=== PATIENT | female | born 1930 | race Caucasian/White ===

== ENCOUNTER 2017-11-03 17:17 | Inpatient (IN) ==
[2017-11-03] MEDS ORDERED: 0.9 % Sodium Chloride 1,000 ML IVC ONE (17:34)
[2017-11-03] MEDS ORDERED: *HR* HYDROcodone/Acet 5/325 mg TABLET PO ONE (17:34)
--- NOTE | 2017-11-03 17:41 | Emergency Department Note ---
Disposition Clinical Impression: ADDIS (acute kidney injury), Elevated CK Fall Qualifiers: Encounter type: initial encounter Qualified Code(s): W19.XXXA - Unspecified fall, initial encounter Disposition: Admitted As Inpatient Condition: Good Referrals: Swati Rios DO [Primary Care Provider] - Forms: ED Satisfaction Letter Time of Disposition: 19:06 General Adult HPI - General Chief complaint: ED Fall Stated complaint: Fall/Weak Time Seen by Provider: 11/03/17 17:21 Source: patient Limitations: no limitations Nursing Notes Reviewed: Yes Vital Signs Reviewed: Yes - History of Present Illness HPI Narrative: Patient is an 87-year-old female presents to emergency department after a fall approximately 3 days ago. She states that she fell on Friday evening and late until Friday afternoon when her daughter came to her house to find her. She states that she did not come to the emergency department right away because initially they could not manage this at home. Patient states that she did hit her head when she fell but denies any loss of consciousness or being on any blood thinners. She states that she was reaching for her walker and fell. Patient states that she is having pain in her right hip. 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 Pain Scale: 5 - Related Data Home Medications Medication Instructions Recorded Confirmed Calcium Carbonate/Vitamin D3 1 each PO BID 05/22/15 10/07/17 [Calcium 600 + D Tablet] Glimepiride [Amaryl] 2 mg PO DAILY 05/22/15 10/07/17 Gluc HCl/Csa/Collagen/Hyalur A 1 each PO DAILY 05/22/15 10/07/17 [Glucosamine Chondroitin Cap] Lisinopril/Hydrochlorothiazide 1 each PO BID 05/22/15 10/07/17 [Lisinopril-Hctz 20-12.5 mg Tab] Metoprolol Tartrate 50 mg PO BID 05/22/15 10/07/17 Multivitamin/Iron/Folic Acid 1 each PO DAILY 05/22/15 10/07/17 [Centrum Complete Multivit Tab] Simvastatin [Zocor] 20 mg PO DAILY 05/22/15 10/07/17 Polyethylene Glycol 3350 [MiraLAX] 17 gm PO DAILY PRN 12/10/16 10/07/17 Cholecalciferol (D-3) [Vitamin D] 1,000 unit PO BID 02/07/17 10/07/17 Ascorbic Acid [Vitamin C] 1,000 mg PO DAILY 08/21/17 10/07/17 Aspirin Enteric Coated [Aspirin EC] 81 mg PO DAILY 11/03/17 11/03/17 Dexamethasone [Decadron] 4 mg PO DAILY 11/03/17 11/03/17 Loperamide [Imodium] 2 mg PO PER PKG DI PRN 11/03/17 11/03/17 Omeprazole [PriLOSEC] 20 mg PO DAILY 11/03/17 11/03/17 Previous Rx's Medication Instructions Recorded LORazepam [Ativan] 0.5 mg PO Q8H PRN #24 tablet 12/10/16 Sertraline [Zoloft] 25 mg PO DAILY #30 tablet 12/10/16 Morphine Immed Rel [Morphine 15 mg PO Q2H PRN #30 tab 03/21/17 Sulfate] HYDROcodone/Acet 5/325 mg [[place] 1 tab PO Q6H PRN #60 tab 09/03/17 5-325 mg] Docusate [Colace] 200 mg PO BID #120 capsule 10/07/17 Lactulose 20 gm PO QID PRN #240 ml 10/07/17 Crizotinib [Xalkori] 250 mg PO BID #60 capsule 10/30/17 Allergies Allergy/AdvReac Type Severity Reaction Status Date / Time Sulfa (Sulfonamide Allergy Unknown Fainting Verified 10/07/17 11:18 Antibiotics) All systems ED: reviewed and negative except as stated. 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 Absent: respiratory distress, wheezes - Cardiovascular Cardiovascular exam: Present: regular rate, normal rhythm, normal heart sounds, +S1, +S2 - Abdominal Exam Abdominal exam: Present: soft, Non-Tender, normal bowel sounds - Neurological Exam Neurological exam: Present: alert, oriented X3, CN II-XII intact - Expanded Neurological Exam Speech: Present: fluid speech Cranial nerves: EOM function (II, III, IV, ): Normal, facial sensation (V): Normal, facial palsy (VII): Normal, gag reflex (IX): Normal, spinal accessory function (XI): Normal, tongue deviation (XII): Normal Cerebellar function: finger to nose: Normal, heel to stephens: Abnormal Right Motor strength - LUE: 5/5 Motor strength - RUE: 5/5 Motor strength - LLE: 5/5 Motor strength - RLE: 3/5 (Patient states that she has issues with her right leg chronically but this is worse than normal. She states that she is unable to lift her leg due to the pain.) Upper motor neuron exam: pronator drift: Absent bilaterally Sensory exam upper extremity: light touch: Normal Sensory exam lower extremity: light touch: Normal Coma Scale Eye Opening: Spontaneous Coma Scale Motor Response: Obeys Commands Coma Scale Verbal Response: Oriented Coma Scale Total: 15 - Psychiatric Psychiatric exam: Present: normal affect, normal mood - Skin Skin exam: Present: warm, dry, intact Course Vital Signs Temperature 98.8 F 11/03/17 17:23 Pulse Rate 92 11/03/17 17:23 Respiratory Rate 16 11/03/17 17:23 Blood Pressure 117/54 11/03/17 17:23 O2 Sat by Pulse Oximetry 96 11/03/17 17:23 Temperature 98.2 F 11/03/17 19:23 Pulse Rate 75 11/03/17 19:23 Respiratory Rate 18 11/03/17 19:23 Blood Pressure 135/63 11/03/17 19:23 O2 Sat by Pulse Oximetry 94 11/03/17 19:23 Oxygen Delivery Oxygen Delivery Room Air Medical Decision Making - MDM Narrative Medical decision making narrative: Due to the patient having a recent fall and hitting her head we will do a CT of the head and neck. We will also x-ray of the pelvis, right hip and right femur. We will also obtain a CBC, BMP and urinalysis on this patient. There are no acute findings on imaging per radiology read. The patient does have an elevated white count which could be due to the patient having laid on the ground for 48 hours. Patient also has an elevated CK level. Patient has what appears to be acute kidney injury which is likely related to rhabdomyolysis versus dehydration. Patient was on the ground for 48 hours with minimal oral intake. Patient was given fluids and analgesics here in the emergency department. Urinalysis was negative for infection. The patient will need to be admitted to the hospital for further evaluation and management and possible OT, PT and possible placement due to the patient being weak and having difficulty getting around. I called and spoke with the hospitalist and they have accepted the patient to their service. The patient will be admitted to the hospital for further evaluation and management. A chest x-ray has been added as the hospitalist request. Chest x-ray showed no acute process. - Lab Data Lab results reviewed: Yes I reviewed the patient's lab results. Result diagrams: 11/03/17 18:21 11/03/17 18:21 Lab Results 11/03/17 11/03/17 11/03/17 Range/Units 18:21 18:21 19:55 WBC 18.8 H (4.3-11.1) K/mcL RBC 3.59 L (3.82-4.97) M/mcL Hgb 9.5 L (11.5-15.4) g/dL Hct 30.7 L (35.3-44.9) % MCV 85.5 (83.0-100.0) fL MCH 26.5 L (28.0-33.3) pg MCHC 30.9 L (31.6-35.5) g/dL RDW 15.5 H (11.5-14.5) % Plt Count 563 H (140-400) K/mcL MPV 9.6 (9.4-12.4) fL Immature Gran % 1.1 (0-4) % Seg Neutrophils % 86.4 % Lymphocytes % 6.9 % Monocytes % 4.7 % Eosinophils % 0.7 % Basophils % 0.2 % Neutrophils # 16.3 H (1.6-8.9) K/mcL Lymphocytes # 1.3 (0.6-4.6) K/mcL Monocytes # 0.9 (0.0-1.3) K/mcL Eosinophils # 0.1 (0.0-0.6) K/mcL Basophils # 0.0 (0.0-0.2) K/mcL Sodium 134 L (136-145) mEq/L Potassium 3.4 L (3.5-5.1) mEq/L Chloride 94 L (98-107) mEq/L Carbon Dioxide 31 H (23-29) mEq/L BUN 52 H (8-23) mg/dL Creatinine 1.26 H (0.60-1.20) mg/dL Est GFR ( Amer) 49 L (> 60) Est GFR (Non-Af Amer) 40 L (> 60) BUN/Creatinine Ratio 41 H (6-26) Glucose 129 H (70-105) mg/dL Calculated Osmolality 294 (280-300) Calcium 8.1 L (8.6-10.3) mg/dL Creatine Kinase 352 H (30-223) Units/L Urine Color Dark Yellow (Yellow) Urine Clarity Cloudy A (Clear) Urine pH 5.5 (5.0-8.0) pH Units Ur Specific [place] 1.021 (1.010-1.025) Urine Protein Negative (Neg-Trace) mg/dL Urine Glucose (UA) Normal (Normal) mg/dL Urine Ketones Negative (Negative) mg/dL Urine Blood Negative (Negative) Urine Nitrite Negative (Negative) Urine Bilirubin Small H (Negative) Urine Urobilinogen Normal (Normal) mg/dL Ur Leukocyte Esterase Negative (Negative) - Radiology Data Radiology results reviewed: Yes I reviewed the patient's radiology results. Cervical Spine CT 11/03/17 17:34 IMPRESSION: No acute abnormality of the cervical spine. D/ / 11/03/2017 18:15:14 Robert Souza MD / [facility] Interpreting Provider: Robert Souza MD Femur X-Ray 11/03/17 17:34 IMPRESSION: No acute osseous abnormality of the right femur. D/ / Edilson Steven MD / Edilson Steven MD Interpreting Provider: Edilson Steven MD Head CT 11/03/17 17:34 IMPRESSION: No acute intracranial abnormality. D/ / Geo Lewis MD / Geo Lewis MD Interpreting Provider: Geo Lewis MD Pelvis X-Ray 11/03/17 17:34 IMPRESSION: 1. No acute abnormality. D/ / Brandyn Quijano MD / Brandyn Quijano MD Interpreting Provider: Brandyn Quijano MD - EKG Data EKG #1 EKG attestation: Yes I reviewed and interpreted this EKG. EKG results narrative: EKG shows atrial fibrillation at a rate of 96 bpm, QRS duration of 86, QTC of 437 no stemi noted on this ekg. this is compared to previous EKG on 03/12/15 which showed a sinus rhythm with a rate of 79 bpm.
[2017-11-03 18:26] LABS: Basophils % 0.2 %; Eosinophils # 0.1 K/mcL (0.0-0.6); Eosinophils % 0.7 %; Hematocrit 30.7 % (35.3-44.9); Hemoglobin 9.5 g/dL (11.5-15.4); Immature Granulocytes % 1.1 % (0-4); Lymphocytes # 1.3 K/mcL (0.6-4.6); Lymphocytes % 6.9 %; Mean Corpuscular HGB Conc 30.9 g/dL (31.6-35.5); Mean Corpuscular Hemoglobin 26.5 pg (28.0-33.3); Mean Corpuscular Volume 85.5 fL (83.0-100.0); Mean Platelet Volume 9.6 fL (9.4-12.4); Monocytes # 0.9 K/mcL (0.0-1.3); Monocytes % 4.7 %; Neutrophils # 16.3 K/mcL (1.6-8.9); Platelet Count 563 K/mcL (140-400); Red Blood Count 3.59 M/mcL (3.82-4.97); Red Cell Distribution Width 15.5 % (11.5-14.5); Segmented Neutrophils % 86.4 %
--- NOTE | 2017-11-03 18:38 | Emergency Department Note ---
START Narrative - START START: I examined this patient and my medical decision-making was reviewed with the Resident Physician. I agree with the documented findings, disposition and treatment plan as described except to the extent set forth below. 87-year-old female presents to the emergency room for weakness. Patient fell on Friday while reaching for her walker landing in the kitchen on the floor. She laid there for 3 days. Her daughter finally came to check on her today. Patient was able to drink water from a water bottle and ate some crackers off the table. She was complaining of right hip pain. 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 She gets treatment here for her cancer by oncology. We did a CT of her head and neck that were nonacute. Although plain films of the pelvis and right hip were negative. Patient will need to be admitted for further workup of her weakness as well as PT OT evaluation. Patient was given IV fluids in the ER. Patient is too weak and unsteady to go home as she lives by herself. Patient most likely may need placement. Concerns for rhabdo or dehydration. Awaiting her lab work results.
[2017-11-03 18:39] LABS: Calcium 8.1 mg/dL (8.6-10.3); Potassium 3.4 mEq/L (3.5-5.1)
[2017-11-03 20:24] LABS: Bilirubin,Urine Small (Negative); Blood,Urine Negative (Negative); Clarity,Urine Cloudy (Clear); Color,Urine Dark Yellow (Yellow); Glucose,Urine (UA) Normal (Normal); Ketones,Urine Negative (Negative); Leukocyte Esterase,Urine Negative (Negative); Nitrite,Urine Negative (Negative); PH,Urine 5.5 pH Units (5.0-8.0); Protein,Urine Negative (Neg-Trace); Specific Gravity,Urine 1.021 (1.010-1.025); Urobilinogen,Urine Normal (Normal)
[2017-11-03 20:27] LABS: Bacteria,Urine None Seen per hpf (None-Few); Squamous Epithelial Cell,Urine Many per lpf (None-Few)
[2017-11-03 20:42] LABS: Hyaline Casts,Urine Moderate per lpf (None-Few)
[2017-11-03] MEDS ORDERED: Naloxone 0.4 MG/ML INJ IVP PRN (20:48)
[2017-11-03] MEDS ORDERED: Acetaminophen 325 MG TABLET PO PRN (20:48)
[2017-11-03] MEDS ORDERED: Ondansetron 4 MG/2 ML VIAL IVP PRN (20:48)
[2017-11-03] MEDS ORDERED: Lactulose Oral Soln 20 GM/30 ML UDC PO PRN (20:56)
[2017-11-03] MEDS ORDERED: *HR* Morphine Immed Rel 15 MG TABLET PO PRN (20:56)
[2017-11-03] MEDS ORDERED: 0.9 % Sodium Chloride w KCl 20 MEQ/1,000 ML MLS IVC SCH (21:00)
--- NOTE | 2017-11-03 21:14 | Internal Med History&Physical ---
<Tesha Damon S - Last Filed: 11/03/17 21:04> Date of Encounter: 11/03/17 Time of Encounter: 21:04 Assessment and Plan (1) ADDIS (acute kidney injury) Current visit: Yes Status: Acute secondary to poor oral intake urinary hesitation tobar catheter inserted in ED avoid nephrotoxins monitor labs (2) Dehydration Current visit: Yes Status: Acute poor oral intake from fall and unable to get up iv fluids (3) Fall Current visit: Yes Status: Acute PT/OT/Social service consults generalized weakness with increasing numbness of legs Qualifiers: Encounter type: initial encounter Qualified Code(s): W19.XXXA - Unspecified fall, initial encounter (4) Leukocytosis Current visit: Yes Status: Acute cxr clear, urine clean likely stress related recheck in am monitor fever curve Qualifiers: Qualified Code(s): D72.829 - Elevated white blood cell count, unspecified (5) Elevated CK Current visit: Yes Status: Acute secondary to fall recheck in am (6) Bone metastasis Current visit: No Status: Chronic s/p radiation oncologist recommends holding her oral agent while hospitialized (7) Depression Current visit: Yes Status: Chronic continue home medication Qualifiers: Depression Type: unspecified Qualified Code(s): F32.9 - Major depressive disorder, single episode, unspecified (8) Ambulatory dysfunction Current visit: Yes Status: Acute pt/ot/social service (9) Diabetes mellitus Current visit: Yes Status: Chronic accu checks ac/hs low dose sliding scale coverage hold oral agent Qualifiers: Diabetes mellitus type: type 2 Diabetes mellitus complication status: with unspecified complications Diabetes mellitus penitentiary insulin use: without penitentiary use Qualified Code(s): E11.8 - Type 2 diabetes mellitus with unspecified complications (10) Hypokalemia Current visit: Yes Status: Acute replace and recheck Internal Medicine - H&P: HPI Chief complaint: mechanical fall with hip pain Admitted From: Emergency Dept Plans for Post Hospital Care: Transfer Halfway Facility History of present illness: Ms. Wasserman is a 87 year old female who presented to the emergency room accompanied by her daughter for bilateral lower extremity weakness and numbness. The patient fell on Friday evening about 5 PM while reaching for her walker coming out of the kitchen. She was unable to get up and laid on the floor until Friday afternoon when her daughter came over and found her on the floor. She had been drinking water out of a bottle and eating some crackers that she could reach. She has right hip pain. She has a history of lung cancer with bony metastasis to the right hip status post radiation and chronic pain medication. She follows at this facility for her cancer care. She felt she did hit her head and neck. She was found to have a white count of 18.8, creatinine kinase of 352, and some renal dysfunction, BUN 52 creatinine 1.26. She states that she utilizes a walker at home that her legs are weak and numb and she cannot use her walker at this point. Chest x-ray showed nothing acute, CT of the spine with no acute changes, right femur was negative for acute fracture and pelvic x-ray showed nothing acute with no changes in the right iliac bone related to metastasis. Head CT with no acute findings. The patient was having difficulty voiding and a Tobar catheter was placed in the ED for some concentrated bradley urine. Urinalysis was sent which is clean. She feels that she is dehydrated. She states she has chronic numbness from the pelvis down secondary to the radiation therapy in the past and cannot tell when she is urinating well when her bowels are moving. She does have difficulty with constipation secondary to her pain medication but then every once in a while will have a bout of diarrhea secondary to her anticonstipation medications. Past Med Surg Social Fam HX - Past Medical History Medical history: cancer, diabetes, hyperlipidemia, hypertension, other ( difficult ambulation, numbness lower extremeties) Psychiatric history: no psych history - Past Surgical History Surgical History: cancer surgery, knee replacement - Social History Smoking Status: Never smoker Smokeless Tobacco Status: No Alcohol use: none Drug use: none Internal Medicine - H&P: Meds Calcium Carbonate/Vitamin D3 [Calcium 600 + D Tablet] 1 each PO DAILY 05/22/15 [ History] Glimepiride [Amaryl] 2 mg PO DAILY 05/22/15 [History] Gluc HCl/Csa/Collagen/Hyalur A [Glucosamine Chondroitin Cap] 1 each PO DAILY 01/01 [History] Lisinopril/Hydrochlorothiazide [Lisinopril-Hctz 20-12.5 mg Tab] 1 each PO BID [History] Metoprolol Tartrate 50 mg PO BID 05/22/15 [History] Multivitamin/Iron/Folic Acid [Centrum Complete Multivit Tab] 1 each PO DAILY 01/01 [History] Simvastatin [Zocor] 20 mg PO HS 05/22/15 [History] LORazepam [Ativan] 0.5 mg PO Q8H PRN #24 tablet 12/10/16 [Rx] Polyethylene Glycol 3350 [MiraLAX] 17 gm PO DAILY PRN 12/10/16 [History] Sertraline [Zoloft] 25 mg PO DAILY #30 tablet 12/10/16 [Rx] Cholecalciferol (D-3) [Vitamin D] 1,000 unit PO BID 02/07/17 [History] Morphine Immed Rel [Morphine Sulfate] 15 mg PO Q2H PRN #30 tab 03/21/17 [Rx] Ascorbic Acid [Vitamin C] 1,000 mg PO DAILY 08/21/17 [History] HYDROcodone/Acet 5/325 mg [[place] 5-325 mg] 1 tab PO Q6H PRN #60 tab 09/03/17 [Rx ] Docusate [Colace] 200 mg PO BID #120 capsule 10/07/17 [Rx] Lactulose 20 gm PO QID PRN #240 ml 10/07/17 [Rx] Crizotinib [Xalkori] 250 mg PO BID #60 capsule 10/30/17 [Rx] Aspirin Enteric Coated [Aspirin EC] 81 mg PO DAILY 11/03/17 [History] Dexamethasone [Decadron] 4 mg PO DAILY 11/03/17 [History] Loperamide [Imodium] 2 mg PO PER PKG DI PRN 11/03/17 [History] Omeprazole [PriLOSEC] 20 mg PO DAILY 11/03/17 [History] 3 Allergy/AdvReac Type Severity Reaction Status Date / Time Sulfa (Sulfonamide Allergy Unknown Fainting Verified 10/07/17 11:18 Antibiotics) All Systems PM: A 10-system review of systems was performed and is negative for pertinent findings except as documented above in the HPI. - Constitutional Constitutional: falls, weakness, no chills, no fever(s), no night sweats - EENT Eyes: no change in vision, no discharge, no pain, no photophobia Ears: no ear discharge, no ear pain, no tinnitus Nose, mouth and throat: dry mouth, no dysphagia, no nasal discharge, no neck pain, no sore throat - Cardiovascular Cardiovascular ROS IM: no chest pain, no diaphoresis, no dyspnea, no lightheadedness, no palpitations, no syncope - Respiratory Respiratory: no cough, no dyspnea, no wheezing, no excessive phlegm production - Gastrointestinal Gastrointestinal: no abdominal pain, no diarrhea, no hematemesis, no hematochezia, no melena, no nausea, no vomiting - Genitourinary Genitourinary: change in urinary stream, urinary hesitancy, no dysuria, no flank pain, no hematuria - Musculoskeletal Musculoskeletal ROS IM: muscle weakness, numbness, no tingling - Integumentary Integumentary IM: no rash, no unusual bruising - Neurological Neurological ROS: numbness, no confusion, no convulsions, no focal weakness, no tingling, no tremor(s) - Psychiatric Psychiatric: depression - Hematologic/Lymphatic Hematologic/Lymphatic: no easy bruising - Constitutional Vitals: Temp Pulse Resp BP Pulse Ox 98.2 F 75 18 135/63 94 11/03/17 19:23 11/03/17 19:23 11/03/17 19:23 11/03/17 19:23 11/03/17 19:23 General appearance: Present: A&O X 3, pleasant, no acute distress, obese, answers questions appropriately - Head Head exam: Present: atraumatic, normocephalic - Eye Eye exam: Present: conjuntiva pink, sclera anicteric Pupils: Present: PERRL - Neck Neck exam general surgery: Present: supple, trachea midline. Absent: lymphadenopathy - Respiratory Respiratory exam: Present: CTAB. Absent: accessory muscle use, rales, rhonchi, wheezes - Cardiovascular Cardiovascular exam: Present: RRR, +S1, +S2. Absent: diastolic murmur, gallop, rubs, systolic murmur - GI/Abdominal GI/Abdominal exam: Present: normal bowel sounds, soft, no peritoneal signs. Absent: distended, tenderness - Extremities Exam Extremities exam: Present: tenderness, warm, radial pulses palpable and symmetrical. Absent: calf tenderness, cyanotic, pedal edema Additional comments: right lower extremity trace edema - Neurological Exam Neurological exam: Present: abnormal gait, oriented X3, no focal deficits. Absent: strengths equal and symetr throughout, pronater drift, facial droop, speech deficit - Skin Skin exam: Present: dry, intact, warm (lips and mm slight dry) Internal Med - H&P Results - Labs CBC & Chem 7: 11/03/17 18:21 11/03/17 18:21 Labs: Short CBC 11/03/17 Range/Units 18:21 WBC 18.8 H (4.3-11.1) K/mcL Hgb 9.5 L (11.5-15.4) g/dL Hct 30.7 L (35.3-44.9) % Plt Count 563 H (140-400) K/mcL Neutrophils # 16.3 H (1.6-8.9) K/mcL BMP 11/03/17 18:21 Sodium 134 L Potassium 3.4 L Chloride 94 L Carbon Dioxide 31 H BUN 52 H Creatinine 1.26 H Glucose 129 H Calcium 8.1 L Urine 11/03/17 Range/Units 19:55 Urine Color Dark Yellow (Yellow) Urine Clarity Cloudy A (Clear) Urine pH 5.5 (5.0-8.0) pH Units Ur Specific [place] 1.021 (1.010-1.025) Urine Protein Negative (Neg-Trace) mg/dL Urine Glucose (UA) Normal (Normal) mg/dL - Impressions ITS Impressions Cervical Spine CT 11/03/17 17:34 IMPRESSION: No acute abnormality of the cervical spine. D/ / 11/03/2017 18:15:14 Robert Souza MD / [facility] Interpreting Provider: Robert Souza MD Femur X-Ray 11/03/17 17:34 IMPRESSION: No acute osseous abnormality of the right femur. D/ / Edilson Steven MD / Edilson Steven MD Interpreting Provider: Edilson Steven MD Head CT 11/03/17 17:34 IMPRESSION: No acute intracranial abnormality. D/ / Geo Lewis MD / Geo Lewis MD Interpreting Provider: Geo Lewis MD Pelvis X-Ray 11/03/17 17:34 IMPRESSION: 1. No acute abnormality. D/ / Brandyn Quijano MD / Brandyn Quijano MD Interpreting Provider: Brandyn Quijano MD Chest X-Ray 11/03/17 19:38 IMPRESSION: 1. No acute abnormality. D/ / Brandyn Quijano MD / Brandyn Quijano MD Interpreting Provider: Brandyn Quijano MD <Uyen San - Last Filed: 11/04/17 04:25> Date of Encounter: 11/04/17 Internal Medicine - H&P: HPI History of present illness: Ms. Wasserman is a 87 year old female All Systems PM: A 10-system review of systems was performed and is negative for pertinent findings except as documented above in the HPI. - Constitutional Vitals: Temp Pulse Resp BP Pulse Ox 98.5 F 66 15 111/57 95 11/04/17 03:58 11/04/17 03:58 11/04/17 03:58 11/04/17 03:58 11/04/17 03:58 Internal Med - H&P Results - Labs CBC & Chem 7: 11/03/17 18:21 11/03/17 18:21 - Attending Attestation I have seen and examined pt independently. I have discussed with RN BURN Ms Damon regarding the management plan, agree with the documentation.
[2017-11-03] MEDS ORDERED: *HR* Dextrose 50 % in Water (Syg) 50 ML SYRINGE IVP PRN (21:39)
[2017-11-03] MEDS ORDERED: D5% in Water 1,000 ML IVC PRN (21:39)
[2017-11-03] MEDS ORDERED: Dextrose Gel 15 GM/37.5 ML TUBE PO PRN ×2 (21:39)
[2017-11-04] MEDS: 0.9 % Sodium Chloride 1,000 ML IVC SCH ×2 (00:25→16:30)
[2017-11-04 05:47] LABS: Basophils % 0.2 %; Eosinophils # 0.2 K/mcL (0.0-0.6); Eosinophils % 1.4 %; Hemoglobin 8.2 g/dL (11.5-15.4); Immature Granulocytes % 1.1 % (0-4); Lymphocytes # 1.6 K/mcL (0.6-4.6); Lymphocytes % 10.5 %; Mean Corpuscular HGB Conc 30.4 g/dL (31.6-35.5); Mean Corpuscular Hemoglobin 26.4 pg (28.0-33.3); Mean Corpuscular Volume 86.8 fL (83.0-100.0); Monocytes # 0.9 K/mcL (0.0-1.3); Monocytes % 5.9 %; Platelet Count 471 K/mcL (140-400); Red Blood Count 3.11 M/mcL (3.82-4.97); Red Cell Distribution Width 15.8 % (11.5-14.5); Segmented Neutrophils % 80.9 %
[2017-11-04 05:53] LABS: INR 1.3; Prothrombin Time 13.7 Seconds (9.4-12.1)
[2017-11-04 05:56] LABS: Activated Partial Thrombo Time 27.3 Seconds (26.0-36.0)
[2017-11-04 06:11] LABS: BUN/Creatinine Ratio 50 (6-26); Blood Urea Nitrogen 49 mg/dL (8-23); Calcium 7.2 mg/dL (8.6-10.3); Carbon Dioxide 31 mEq/L (23-29); Chloride 97 mEq/L (98-107); Creatine Kinase 238 Units/L (30-223); Glucose 48 mg/dL (70-105); Magnesium 2.2 mg/dL (1.6-2.6); Osmolality,Calculated 296 (280-300); Potassium 3.4 mEq/L (3.5-5.1); Sodium 138 mEq/L (136-145); eGFR For African Americans > 60 (> 60); eGFR For Non-African Americans 54 (> 60)
[2017-11-04] MEDS ORDERED: CALCIUM CARBONATE PO SCH (09:00)
[2017-11-04] MEDS ORDERED: VITAMIN D3 PO SCH (09:00)
[2017-11-04 09:13] LABS: % Iron Saturation 15 % (15-50); Iron 24 mcg/dL (50-170); Transferrin 111 mg/dL (203-362)
[2017-11-04] MEDS: Insulin LISPRO 300 UNITS/3 ML VIAL SQ SCH ×4 (09:23→21:02)
[2017-11-04] MEDS: Multivitamin Liquid 15 ML UDC PO SCH (09:25)
[2017-11-04] MEDS: Aspirin Enteric Coated 81 MG Tablet PO SCH (09:25)
[2017-11-04] MEDS: Ascorbic Acid 500 MG TABLET PO SCH (09:26)
[2017-11-04] MEDS: Cholecalciferol (D-3) 1,000 UNIT TABLET PO SCH (09:26)
[2017-11-04 09:32] LABS: Hematocrit 25.8 % (35.3-44.9); Hemoglobin 7.9 g/dL (11.5-15.4)
[2017-11-04 09:39] LABS: Folate 10.3 ng/mL (3.0-16.0)
--- NOTE | 2017-11-04 11:13 | Electrocardiograph Report ---
[address] [address] Test Date: 2017-11-03 Pat Name: Edda Wasserman Department: 102 Room: 3B23 Gender: F Program Associate: : 1930 Requested By: eCcilia Miner Order Number: [id number] Reading MD: Dilshad Hinkle MD Measurements Intervals [place] Rate: 96 P: VT: 0 QRS: -13 QRSD: 86 T: 3 QT: 384 QTc: 437 Interpretive Statements ATRIAL FIBRILLATION WITH ABERRANT CONDUCTION OR VENTRICULAR PREMATURE COMPLEXES Poor R wave progression Electronically Signed On 11-04-2017 11:11:46 EST by Dilshad Hinkle MD
[2017-11-04] MEDS ORDERED: Saliva Stimulant 100ml BOTTLE PO PRN (11:48)
--- NOTE | 2017-11-04 13:56 | Electrocardiograph Report ---
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
[2017-11-04 14:18] LABS: Hematocrit 26.4 % (35.3-44.9); Hemoglobin 8.1 g/dL (11.5-15.4)
--- NOTE | 2017-11-04 16:21 | Internal Med Progress Note ---
Date of Encounter: 11/04/17 Time of Encounter: 10:15 - Assessment and plan (1) Bone metastasis Current Visit: No Status: Chronic (2) ADDIS (acute kidney injury) Current Visit: Yes Status: Acute Assessment and plan: Secondary to poor by mouth intake. Patient fell at home and laid on the floor for 2 days prior to being found. She drank a bottle of water and ate some crackers that she could reach. Patient was given IV fluid hydration and renal function has returned to normal. Serum creatinine 0.98 GFR is greater than 60. Continue to monitor intake and avoid nephrotoxins. (3) Fall Current Visit: Yes Status: Acute Assessment and plan: Patient reports frequent falls at home recently. She also states that she fell and was in the floor for 2 days prior to daughter finding her. It was a mechanical fall due to patient's inability to reach her walker as she was exiting her kitchen. 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 Patient reports recent weakness and fatigue, likely multifactorial due to recent chemotherapy, possible disease progression, deconditioning, anemia. Chemotherapy is being held. Patient has been evaluated by oncology in the hospital. Physical therapy and occupational therapy on board. We are monitoring H and H and will transfuse if hemoglobin and 8. Qualifiers: Encounter type: initial encounter Qualified Code(s): W19.XXXA - Unspecified fall, initial encounter (4) Dehydration Current Visit: Yes Status: Acute Assessment and plan: Poor by mouth intake while she was lying in the floor after fall. Patient has been given IV fluids. Renal function has returned to baseline. Osmolality is within normal limits. Continue to monitor and encourage by mouth intake. (5) Leukocytosis Current Visit: Yes Status: Acute Assessment and plan: Leukocytosis is improving. 14.8 today. Likely due to stress or urinary tract infection. She is being treated with Rocephin 1 g IV daily. Will narrow antibiotics and sensitivity is available. Continue to monitor labs. Patient is afebrile, no tachycardia, normotensive. No tachypnea. She does not meet SIRS or sepsis criteria. Qualifiers: Qualified Code(s): D72.829 - Elevated white blood cell count, unspecified (6) Ambulatory dysfunction Current Visit: Yes Status: Acute Assessment and plan: Plan as above. (7) Diabetes mellitus Current Visit: Yes Status: Chronic Assessment and plan: A1c was 6.1 in June. Continue sliding scale insulin, Accu-Cheks before meals and at bedtime diabetic diet. Qualifiers: Diabetes mellitus type: type 2 Diabetes mellitus complication status: with unspecified complications Diabetes mellitus usp insulin use: without usp use Qualified Code(s): E11.8 - Type 2 diabetes mellitus with unspecified complications (8) Hypokalemia Current Visit: Yes Status: Acute Assessment and plan: Potassium 3.4. Supplementing with both by mouth and IV. We will recheck in the morning. 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 Continue to monitor H&H. Prepare to transfuse if less than 8. Patient reports feeling fatigued and weak recently. She is symptomatic with anemia. No obvious signs of bleeding. Qualifiers: Anemia type: other cause Other causes of anemia: antineoplastic chemotherapy Qualified Code(s): D64.81 - Anemia due to antineoplastic chemotherapy; T45.1X5A - Adverse effect of antineoplastic and immunosuppressive drugs, initial encounter; T45.1X5A - Adverse effect of antineoplastic and immunosuppressive drugs, initial encounter - Subjective Interval history: Patient was seen and assessed at bedside at 10:15 AM. She is alert, awake, oriented, answers questions appropriately. Patient reports mild abdominal discomfort and no bowel movement for several days. Laxatives been ordered. Patient states to me that she wants to go to the alf due to the fact that she know she is unsafe to go home. She states her daughter is not good checking on her. She denies headache or blurred vision. She denies any chest pain or shortness of breath. No nausea, vomiting, diarrhea or abdominal pain. She reports right hip pain that has been controlled with pain medication. - Constitutional Vitals: Temp Pulse Resp BP Pulse Ox 98.5 F 81 15 104/62 93 11/04/17 15:42 11/04/17 15:42 11/04/17 15:42 11/04/17 15:42 11/04/17 15:42 General appearance: Present: cooperative, A&O X 3, pleasant, no acute distress, obese, answers questions appropriately - Head Head exam: Present: atraumatic, normal inspection, normocephalic - Eye Eye exam: Present: normal appearance, conjuntiva pink, sclera anicteric - Neck Neck exam general surgery: Present: supple, trachea midline. Absent: lymphadenopathy, tenderness - Respiratory Respiratory exam: Present: CTAB. Absent: accessory muscle use, rales, rhonchi, wheezes - Cardiovascular Cardiovascular exam: Present: RRR, +S1, +S2. Absent: diastolic murmur, gallop, rubs, systolic murmur - GI/Abdominal GI/Abdominal exam: Present: normal bowel sounds, soft. Absent: distended, hepatomegaly, tenderness - Extremities Exam Extremities exam: Present: normal capillary refill, normal inspection, pedal edema, warm, radial pulses palpable and symmetrical. Absent: calf tenderness, cyanotic, tenderness Additional comments: Past 1-2 nonpitting bilateral lower extremity edema. Normal for patient. - Neurological Exam Neurological exam: Present: alert, oriented X3, no focal deficits, strengths equal and symetr throughout. Absent: altered, facial droop, speech deficit - Skin Skin exam: Present: dry, intact, normal color, warm. Absent: rash Internal Medicine: Result - Labs CBC & Chem 7: 11/04/17 14:07 11/04/17 04:04 Labs: Short CBC 11/04/17 11/04/17 11/04/17 Range/Units 04:04 08:48 14:07 WBC 14.8 H (4.3-11.1) K/mcL Hgb 8.2 L 7.9 L 8.1 L (11.5-15.4) g/dL Hct 27.0 L 25.8 L 26.4 L (35.3-44.9) % Plt Count 471 H (140-400) K/mcL Neutrophils # 12.0 H (1.6-8.9) K/mcL BMP 11/04/17 04:04 Sodium 138 Potassium 3.4 L Chloride 97 L Carbon Dioxide 31 H BUN 49 H Creatinine 0.98 Glucose 48 L Calcium 7.2 L - ABG Interpretation ABG results: PT/INR, D-dimer PT 13.7 Seconds (9.4-12.1) H 11/04/17 04:04 Consult Discharge Plan - Plan Referrals: Swati Rios DO [Primary Care Provider] -
[2017-11-04 20:45] LABS: Hematocrit 25.6 % (35.3-44.9); Hemoglobin 7.9 g/dL (11.5-15.4)
[2017-11-05] MEDS: 0.9 % Sodium Chloride 1,000 ML IVC SCH ×2 (03:43→14:21)
[2017-11-05 05:09] LABS: Basophils % 0.2 %; Eosinophils % 1.2 %; Hematocrit 26.5 % (35.3-44.9); Hemoglobin 8.2 g/dL (11.5-15.4); Immature Granulocytes % 1.4 % (0-4); Lymphocytes % 7.6 %; Mean Corpuscular HGB Conc 30.9 g/dL (31.6-35.5); Mean Corpuscular Hemoglobin 26.7 pg (28.0-33.3); Mean Corpuscular Volume 86.3 fL (83.0-100.0); Mean Platelet Volume 9.9 fL (9.4-12.4); Monocytes % 6.6 %; Platelet Count 418 K/mcL (140-400); Red Blood Count 3.07 M/mcL (3.82-4.97); Red Cell Distribution Width 15.8 % (11.5-14.5)
[2017-11-05 05:10] LABS: Eosinophils # 0.2 K/mcL (0.0-0.6); Lymphocytes # 1.2 K/mcL (0.6-4.6)
[2017-11-05 05:25] LABS: BUN/Creatinine Ratio 39 (6-26); Blood Urea Nitrogen 28 mg/dL (8-23); Calcium 7.4 mg/dL (8.6-10.3); Carbon Dioxide 30 mEq/L (23-29); Chloride 103 mEq/L (98-107); Glucose 97 mg/dL (70-105); Osmolality,Calculated 291 (280-300); Potassium 3.8 mEq/L (3.5-5.1); Sodium 138 mEq/L (136-145); eGFR For African Americans > 60 (> 60); eGFR For Non-African Americans > 60 (> 60)
[2017-11-05] MEDS: Insulin LISPRO 300 UNITS/3 ML VIAL SQ SCH ×4 (09:04→21:53)
[2017-11-05] MEDS: Multivitamin Liquid 15 ML UDC PO SCH (09:07)
[2017-11-05] MEDS: Aspirin Enteric Coated 81 MG Tablet PO SCH (09:07)
[2017-11-05] MEDS: Ascorbic Acid 500 MG TABLET PO SCH (09:09)
[2017-11-05] MEDS: Cholecalciferol (D-3) 1,000 UNIT TABLET PO SCH (09:10)
[2017-11-05] MEDS ORDERED: cefTRIAXone 1,000 MG in Water for inj. (sterile) 20 ML 10 ML IVP SCH (11:00)
[2017-11-05] MEDS ORDERED: 0.9 % Sodium Chloride 250 ML IVC ONE (13:22)
[2017-11-05 13:54] LABS: Bilirubin,Urine Negative (Negative); Blood,Urine Negative (Negative); Clarity,Urine Cloudy (Clear); Color,Urine Yellow (Yellow); Glucose,Urine (UA) Normal (Normal); Ketones,Urine Negative (Negative); Leukocyte Esterase,Urine Negative (Negative); Nitrite,Urine Negative (Negative); PH,Urine 6.5 pH Units (5.0-8.0); Protein,Urine 100 mg/dL (Neg-Trace); Specific Gravity,Urine 1.024 (1.010-1.025); Urobilinogen,Urine Normal (Normal)
[2017-11-05 13:56] LABS: Bacteria,Urine None Seen per hpf (None-Few); Hyaline Casts,Urine None Seen per lpf (None-Few); Squamous Epithelial Cell,Urine Many per lpf (None-Few)
[2017-11-05 14:11] LABS: Oval Fat Bodies,Urine Present (Not Present); RBC,Urine 0-3 per hpf (0-3)
--- NOTE | 2017-11-05 17:16 | Internal Med Progress Note ---
Date of Encounter: 11/05/17 Time of Encounter: 11:10 - Assessment and plan (1) Fall Current Visit: Yes Status: Acute Assessment and plan: Patient is most likely going to [facility] on discharge. She is undergoing PT and OT while in hospital, will continue at [facility]. Patient with chronic numbness to bilateral lower extremities due to chemotherapy. She reports recent weakness and fatigue. Continue PT and OT Fall precautions Up with assistance Bed alarm. Qualifiers: Encounter type: initial encounter Qualified Code(s): W19.XXXA - Unspecified fall, initial encounter (2) ADDIS (acute kidney injury) Current Visit: Yes Status: Acute Assessment and plan: Resolved. Renal function has returned to normal. Continue to watch nephrotoxins and encourage by mouth intake. (3) Bone metastasis Current Visit: Yes Status: Chronic Assessment and plan: Status post radiation treatments. By mouth chemotherapy is being held while hospitalized. (4) Dehydration Current Visit: Yes Status: Acute Assessment and plan: Corrected. Continue to monitor fluid status and encourage by mouth intake. (5) Leukocytosis Current Visit: Yes Status: Acute Assessment and plan: Leukocytosis is remaining stable, 15.6 today. Likely due to stress. She is being treated with Rocephin 1 g IV daily for suspected urinary tract infection. Today she developed a fever and tachycardia, blood cultures were ordered. Initial chest x-ray negative. We will order CT scan of chest. She does not have any difficulty breathing or new productive cough. I discussed her chemotherapy medication with oncology LOAD MANAGER, leukocytosis is not normally a side effect of this medication. Repeat urine was negative and no culture was indicated. I have requested Simental catheter be removed. Continue to monitor labs. Patient is febrile, tachycardic, normotensive. No tachypnea. She currently meets sepsis criteria. Qualifiers: Qualified Code(s): D72.829 - Elevated white blood cell count, unspecified (6) Ambulatory dysfunction Current Visit: Yes Status: Acute Assessment and plan: Plan as above. (7) Diabetes mellitus Current Visit: Yes Status: Chronic Assessment and plan: A1c was 6.1 in June. Continue sliding scale insulin, Accu-Cheks before meals and at bedtime diabetic diet. 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 Continue to monitor H&H. 8.2 today. Prepare to transfuse if less than 8. Patient reports feeling fatigued and weak recently. She is symptomatic with anemia. No obvious signs of bleeding. Qualifiers: Anemia type: other cause Other causes of anemia: antineoplastic chemotherapy Qualified Code(s): D64.81 - Anemia due to antineoplastic chemotherapy; T45.1X5A - Adverse effect of antineoplastic and immunosuppressive drugs, initial encounter; T45.1X5A - Adverse effect of antineoplastic and immunosuppressive drugs, initial encounter (10) DVT prophylaxis Current Visit: Yes Status: Acute Assessment and plan: TIAK rojas ordered. - Subjective Interval history: Patient was seen and assessed at bedside at 1110 AM. She is alert, awake, oriented, answers questions appropriately. She denies headache or blurred vision. She denies any chest pain or shortness of breath. No nausea, vomiting , diarrhea or abdominal pain. PT in progress during assessment, she appears to be tolerating well. She is aware of placement at [facility] for rehab, denies questions. - Constitutional Vitals: Temp Pulse Resp BP Pulse Ox 100.6 F H 99 16 157/67 93 11/05/17 16:47 11/05/17 16:47 11/05/17 16:47 11/05/17 16:47 11/05/17 16:47 General appearance: Present: cooperative, A&O X 3, pleasant, no acute distress, obese, answers questions appropriately - Head Head exam: Present: atraumatic, normocephalic - Eye Eye exam: Present: PERRL, conjuntiva pink, sclera anicteric Pupils: Present: PERRL - Neck Neck exam general surgery: Present: supple, trachea midline. Absent: lymphadenopathy - Respiratory Respiratory exam: Present: CTAB. Absent: accessory muscle use, chest wall tenderness, rales, respiratory distress, rhonchi, wheezes - Cardiovascular Cardiovascular exam: Present: RRR, +S1, +S2. Absent: diastolic murmur, gallop, rubs, systolic murmur - GI/Abdominal GI/Abdominal exam: Present: normal bowel sounds, soft. Absent: distended, hepatomegaly, tenderness - Extremities Exam Extremities exam: Present: normal capillary refill, warm, radial pulses palpable and symmetrical. Absent: calf tenderness, cyanotic, pedal edema - Neurological Exam Neurological exam: Present: alert, oriented X3, no focal deficits. Absent: facial droop, speech deficit - Skin Skin exam: Present: dry, intact, normal color, warm. Absent: rash Internal Medicine: Result - Labs CBC & Chem 7: 11/05/17 04:30 11/05/17 04:30 Labs: Short CBC 11/04/17 11/05/17 Range/Units 19:54 04:30 WBC 15.6 H (4.3-11.1) K/mcL Hgb 7.9 L 8.2 L (11.5-15.4) g/dL Hct 25.6 L 26.5 L (35.3-44.9) % Plt Count 418 H (140-400) K/mcL Neutrophils # 13.0 H (1.6-8.9) K/mcL BMP 11/05/17 04:30 Sodium 138 Potassium 3.8 Chloride 103 Carbon Dioxide 30 H BUN 28 H Creatinine 0.71 Glucose 97 Calcium 7.4 L Urine 11/05/17 Range/Units 13:37 Urine Color Yellow (Yellow) Urine Clarity Cloudy A (Clear) Urine pH 6.5 (5.0-8.0) pH Units Ur Specific [place] 1.024 (1.010-1.025) Urine Protein 100 H (Neg-Trace) mg/dL Urine Glucose (UA) Normal (Normal) mg/dL - ABG Interpretation ABG results: PT/INR, D-dimer PT 13.7 Seconds (9.4-12.1) H 11/04/17 04:04 Consult Discharge Plan - Plan Referrals: Jeffery Anderson MD [Partnered Physician] - 11/21/17 1:40 pm Swati Rios DO [Primary Care Provider] -
[2017-11-05] MEDS: *HR* HYDROcodone/Acet 5/325 mg TABLET PO PRN (20:04)
[2017-11-05] MEDS ORDERED: *HR* Morphine Immed Rel 30 MG TABLET PO PRN (20:30)
[2017-11-06] MEDS: 0.9 % Sodium Chloride 1,000 ML IVC SCH ×2 (03:33→19:01)
[2017-11-06 04:17] LABS: Basophils % 0.2 %; Eosinophils # 0.2 K/mcL (0.0-0.6); Hematocrit 30.1 % (35.3-44.9); Immature Granulocytes % 1.7 % (0-4); Immature Platelets 2.6 % (1.1-6.1); Lymphocytes # 1.5 K/mcL (0.6-4.6); Lymphocytes % 6.3 %; Mean Corpuscular HGB Conc 29.9 g/dL (31.6-35.5); Mean Corpuscular Hemoglobin 26.2 pg (28.0-33.3); Mean Corpuscular Volume 87.8 fL (83.0-100.0); Mean Platelet Volume 9.5 fL (9.4-12.4); Monocytes # 1.4 K/mcL (0.0-1.3); Neutrophils # 19.5 K/mcL (1.6-8.9); Platelet Count 505 K/mcL (140-400); Red Blood Count 3.43 M/mcL (3.82-4.97); Red Cell Distribution Width 16.1 % (11.5-14.5); Segmented Neutrophils % 84.8 %
[2017-11-06 04:50] LABS: BUN/Creatinine Ratio 33 (6-26); Blood Urea Nitrogen 18 mg/dL (8-23); Calcium 7.5 mg/dL (8.6-10.3); Carbon Dioxide 29 mEq/L (23-29); Chloride 104 mEq/L (98-107); Glucose 103 mg/dL (70-105); Osmolality,Calculated 290 (280-300); Potassium 3.5 mEq/L (3.5-5.1); Sodium 139 mEq/L (136-145); eGFR For African Americans > 60 (> 60); eGFR For Non-African Americans > 60 (> 60)
[2017-11-06] MEDS: Insulin LISPRO 300 UNITS/3 ML VIAL SQ SCH ×4 (07:55→21:22)
[2017-11-06] MEDS: Ascorbic Acid 500 MG TABLET PO SCH (08:06)
[2017-11-06] MEDS: Aspirin Enteric Coated 81 MG Tablet PO SCH (08:07)
[2017-11-06] MEDS: Levofloxacin 750 MG/150 ML 750 MG/150 ML BAG IVPB SCH (08:07)
[2017-11-06] MEDS: Multivitamin Liquid 15 ML UDC PO SCH (08:07)
[2017-11-06] MEDS: Cholecalciferol (D-3) 1,000 UNIT TABLET PO SCH (08:07)
[2017-11-06] MEDS: Ipratropium/Albuterol Neb 3 ML IH SCH ×5 (11:36→23:12)
--- NOTE | 2017-11-06 16:49 | Internal Med Progress Note ---
Date of Encounter: 11/06/17 Time of Encounter: 10:35 - Assessment and plan (1) Fall Current Visit: Yes Status: Acute Assessment and plan: Awaiting determination for placement in ECF. She is undergoing PT and OT while in hospital, will continue at ECF. Patient with chronic numbness to bilateral lower extremities due to chemotherapy. She reports recent weakness and fatigue. Continue PT and OT Fall precautions Up with assistance Bed alarm. Qualifiers: Encounter type: initial encounter Qualified Code(s): W19.XXXA - Unspecified fall, initial encounter (2) ADDIS (acute kidney injury) Current Visit: Yes Status: Acute Assessment and plan: Resolved. Renal function has returned to normal. Continue to watch nephrotoxins and encourage by mouth intake. (3) Bone metastasis Current Visit: Yes Status: Chronic Assessment and plan: Status post radiation treatments. By mouth chemotherapy is being held while hospitalized. Oncology will reevaluate chemo medication after placement at next visit. (4) Dehydration Current Visit: Yes Status: Resolved (5) Leukocytosis Current Visit: Yes Status: Acute Assessment and plan: Leukocytosis worsened overnight. Patient was being treated with Rocephin 1 g IV daily for suspected urinary tract infection. Patient developed low-grade fever, tachycardia. Blood cultures were ordered and pending. Lactic was negative. Chest CT was ordered that showed new bilateral pleural effusions with adjacent lung consolidation either atelectasis or pneumonia. There is no change in focal consolidation and posterior right upper lobe and the small mediastinal nodes also appeared similar. Patient met sirs criteria with elevated white count, tachycardia, fever. Her renal function has remained stable, she is not requiring supplemental oxygen. Patient was started on IV Levaquin, DuoNeb's, Mucinex. Continue to monitor labs daily Monitor vital signs, especially fever and pulse ox. Qualifiers: Leukocytosis type: unspecified Qualified Code(s): D72.829 - Elevated white blood cell count, unspecified (6) Ambulatory dysfunction Current Visit: Yes Status: Acute Assessment and plan: Plan as above. (7) Diabetes mellitus Current Visit: Yes Status: Chronic Assessment and plan: A1c was 6.1 in June. Continue SSI, Accu-Cheks before meals and at bedtime diabetic diet. Qualifiers: Diabetes mellitus type: type 2 Diabetes mellitus complication status: with unspecified complications Diabetes mellitus skilled nursing insulin use: without terminologist use Qualified Code(s): E11.8 - Type 2 diabetes mellitus with unspecified complications (8) Hypokalemia Current Visit: Yes Status: Resolved Assessment and plan: Resolved. 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 Continue to monitor H&H. 9.0 today. Prepare to transfuse if less than 8. Patient reports feeling fatigued and weak recently. She is symptomatic with anemia. No obvious signs of bleeding. Qualifiers: Anemia type: other cause Other causes of anemia: antineoplastic chemotherapy Qualified Code(s): D64.81 - Anemia due to antineoplastic chemotherapy; T45.1X5A - Adverse effect of antineoplastic and immunosuppressive drugs, initial encounter; T45.1X5A - Adverse effect of antineoplastic and immunosuppressive drugs, initial encounter (10) DVT prophylaxis Current Visit: Yes Status: Acute Assessment and plan: TIKA hose ordered. (11) Decrease in appetite Current Visit: Yes Status: Acute Assessment and plan: Patient reports recent decrease in appetite at home. She states she simply does not feel like eating. Patient has been started on Marinol 2.5 mg by mouth twice daily per the recommendation of oncology. Continue to monitor. Add supplement shakes. - Time Spent With Patient less than 15 minutes - Subjective Interval history: [place] [address] AM. She is alert, awake, oriented, answers questions appropriately. She denies headache or blurred vision. She denies any chest pain or shortness of breath. No nausea, vomiting , diarrhea or abdominal pain. Pt reported this a.m. that she wanted to go to [facility] in [place] instead of [facility], CONCRETE FINISHER aware, and we are waiting determination. - Constitutional Vitals: Temp Pulse Resp BP Pulse Ox 99.9 F H 95 18 132/74 98 11/06/17 15:59 11/06/17 15:59 11/06/17 15:59 11/06/17 15:59 11/06/17 15:59 General appearance: Present: cooperative, A&O X 3, pleasant, no acute distress, obese, answers questions appropriately - Head Head exam: Present: atraumatic, normal inspection, normocephalic - Eye Eye exam: Present: normal appearance, conjuntiva pink, sclera anicteric - Neck Neck exam general surgery: Present: supple, trachea midline. Absent: lymphadenopathy, tenderness - Respiratory Respiratory exam: Present: CTAB. Absent: accessory muscle use, chest wall tenderness, decreased breath sounds, rales, respiratory distress, rhonchi, wheezes - Cardiovascular Cardiovascular exam: Present: RRR, +S1, +S2. Absent: diastolic murmur, gallop, rubs, systolic murmur - GI/Abdominal GI/Abdominal exam: Present: normal bowel sounds, soft, no peritoneal signs. Absent: distended, hepatomegaly, tenderness - Extremities Exam Extremities exam: Present: normal capillary refill, normal inspection, warm, radial pulses palpable and symmetrical. Absent: calf tenderness, cyanotic, pedal edema, tenderness - Neurological Exam Neurological exam: Present: alert, oriented X3, no focal deficits. Absent: facial droop, speech deficit - Skin Skin exam: Present: dry, intact, normal color, warm. Absent: rash Internal Medicine: Result - Labs CBC & Chem 7: 11/06/17 03:59 11/06/17 03:59 Labs: Short CBC 11/06/17 Range/Units 03:59 WBC 23.0 H (4.3-11.1) K/mcL Hgb 9.0 L (11.5-15.4) g/dL Hct 30.1 L (35.3-44.9) % Plt Count 505 H (140-400) K/mcL Neutrophils # 19.5 H (1.6-8.9) K/mcL BMP 11/06/17 03:59 Sodium 139 Potassium 3.5 Chloride 104 Carbon Dioxide 29 BUN 18 Creatinine 0.54 L Glucose 103 Calcium 7.5 L - ABG Interpretation ABG results: PT/INR, D-dimer PT 13.7 Seconds (9.4-12.1) H 11/04/17 04:04 - Impressions Impressions Chest CT 11/05/17 17:27 IMPRESSION: New bilateral pleural effusions with adjacent lung consolidation either atelectasis or pneumonia No change in focal consolidation posterior right upper lobe. Small mediastinal nodes also appear similar D/ / Delta Ross MD / Delta Ross MD Interpreting Provider: Delta Ross MD Consult Discharge Plan - Plan Referrals: Jeffery Anderson MD [Partnered Physician] - 11/21/17 1:40 pm Swati Rios DO [Primary Care Provider] -
[2017-11-07] MEDS: Ipratropium/Albuterol Neb 3 ML IH SCH ×6 (03:28→23:27)
[2017-11-07 04:54] LABS: Basophils % 0.1 %; Eosinophils # 0.1 K/mcL (0.0-0.6); Eosinophils % 0.5 %; Hematocrit 27.3 % (35.3-44.9); Hemoglobin 8.3 g/dL (11.5-15.4); Immature Granulocytes % 1.3 % (0-4); Lymphocytes # 1.1 K/mcL (0.6-4.6); Lymphocytes % 5.4 %; Mean Corpuscular HGB Conc 30.4 g/dL (31.6-35.5); Mean Corpuscular Hemoglobin 26.5 pg (28.0-33.3); Mean Corpuscular Volume 87.2 fL (83.0-100.0); Mean Platelet Volume 9.8 fL (9.4-12.4); Monocytes # 1.4 K/mcL (0.0-1.3); Monocytes % 6.8 %; Neutrophils # 17.8 K/mcL (1.6-8.9); Platelet Count 411 K/mcL (140-400); Red Blood Count 3.13 M/mcL (3.82-4.97); Red Cell Distribution Width 16.3 % (11.5-14.5); Segmented Neutrophils % 85.9 %
[2017-11-07 05:14] LABS: BUN/Creatinine Ratio 30 (6-26); Blood Urea Nitrogen 17 mg/dL (8-23); Calcium 7.4 mg/dL (8.6-10.3); Carbon Dioxide 28 mEq/L (23-29); Chloride 105 mEq/L (98-107); Glucose 177 mg/dL (70-105); Osmolality,Calculated 292 (280-300); Sodium 138 mEq/L (136-145); eGFR For African Americans > 60 (> 60); eGFR For Non-African Americans > 60 (> 60)
[2017-11-07] MEDS: 0.9 % Sodium Chloride 1,000 ML IVC SCH ×2 (05:39→20:44)
[2017-11-07] MEDS ORDERED: 0.9 % Sodium Chloride 1,000 ML IVC ONE (07:57)
[2017-11-07] MEDS ORDERED: 0.9 % Sodium Chloride 500 ML IVC ONE (08:02)
[2017-11-07] MEDS: Levofloxacin 750 MG/150 ML 750 MG/150 ML BAG IVPB SCH (08:08)
[2017-11-07] MEDS: Insulin LISPRO 300 UNITS/3 ML VIAL SQ SCH ×4 (08:09→20:29)
[2017-11-07] MEDS: Ascorbic Acid 500 MG TABLET PO SCH (08:10)
[2017-11-07] MEDS: Multivitamin Liquid 15 ML UDC PO SCH (08:10)
[2017-11-07] MEDS: Cholecalciferol (D-3) 1,000 UNIT TABLET PO SCH (08:10)
[2017-11-07] MEDS: Aspirin Enteric Coated 81 MG Tablet PO SCH (08:10)
[2017-11-07] MEDS: cefTRIAXone 2,000 MG in Water for inj. (sterile) 20 ML 20 ML IVP SCH (08:28)
[2017-11-07] MEDS: Azithromycin 500 MG in D5% in Water 250 ML IVPB SCH (08:29)
[2017-11-07 10:45] LABS: INR 1.5; Prothrombin Time 16.7 Seconds (9.4-12.1)
[2017-11-07 10:47] LABS: Activated Partial Thrombo Time 34.3 Seconds (26.0-36.0)
[2017-11-07 10:49] LABS: Albumin 2.1 g/dL (3.5-5.7); Albumin/Globulin Ratio 0.7 (1.1-2.2); Bilirubin,Direct 0.2 mg/dL (0.0-0.2); Bilirubin,Indirect 0.2 mg/dL (0.0-1.2); Bilirubin,Total 0.4 mg/dL (0.3-1.0); Globulin 2.9 g/dL (2.4-3.5)
[2017-11-07] MEDS: Furosemide 20 MG/2 ML VIAL IVP SCH ×2 (11:39→20:23)
[2017-11-07] MEDS: Vancomycin 1,500 MG in D5% in Water 250 ML IVPB SCH (11:40)
--- NOTE | 2017-11-07 14:01 | Internal Med Progress Note ---
Date of Encounter: 11/07/17 Time of Encounter: 09:05 - Assessment and plan (1) Fall Current Visit: Yes Status: Acute Assessment and plan: Most likely will be going to [facility] after discharge. She is undergoing PT and OT while in hospital, will continue at [facility]. Patient with chronic numbness to bilateral lower extremities due to chemotherapy. She reports recent weakness and fatigue. Continue PT and OT Fall precautions Up with assistance Bed alarm. Qualifiers: Encounter type: initial encounter Qualified Code(s): W19.XXXA - Unspecified fall, initial encounter (2) Sepsis Current Visit: Yes Status: Acute Assessment and plan: Patient with increasing leukocytosis, fever, and tachycardia, secondary to community-acquired pneumonia. Blood cultures and lactic were negative. Initial chest x-ray was negative, chest CT showed new bilateral pleural effusions with adjacent lung consolidation. Patient was initially started on Levaquin, she developed a fever and increasing leukocytosis, Levaquin was stopped and patient is on IV Zithromax, 2 g of Rocephin IV daily, and vancomycin pharmacy to dose. She was given a 500 mL bolus, she had been receiving IV fluids. Urine negative x 2. Continue IVF and IV antibiotics Monitor labs and vital signs Qualifiers: Sepsis type: sepsis due to unspecified organism Qualified Code(s): A41.9 - Sepsis, unspecified organism (3) ADDIS (acute kidney injury) Current Visit: Yes Status: Acute Assessment and plan: GFR is greater than 60, creatinine 0.57. Function has returned to baseline. Patient has been started on vancomycin, pharmacy to dose. Continue to monitor renal function and avoid nephrotoxins as much as possible. (4) Bone metastasis Current Visit: Yes Status: Chronic Assessment and plan: Status post radiation treatments. By mouth chemotherapy is being held while hospitalized. Oncology will reevaluate chemo medication after placement at next visit. Pain control as needed. (5) Dehydration Current Visit: Yes Status: Resolved Assessment and plan: Corrected. Continue to monitor fluid status and encourage by mouth intake. (6) Leukocytosis Current Visit: Yes Status: Acute Assessment and plan: Leukocytosis improved slightly overnight. Patient was being treated with Rocephin 1 g IV daily for suspected urinary tract infection. Patient developed low-grade fever, tachycardia. Chest CT was ordered that showed new bilateral pleural effusions with adjacent lung consolidation either atelectasis or pneumonia. There is no change in focal consolidation and posterior right upper lobe and the small mediastinal nodes also appeared similar. Patient met sirs criteria with elevated white count, tachycardia, fever. Her renal function has remained stable, she is not requiring supplemental oxygen. Patient being treated with sepsis protocol IV fluids, IV antibiotics, labs. Continue to monitor vital signs and labs. Qualifiers: Leukocytosis type: unspecified Qualified Code(s): D72.829 - Elevated white blood cell count, unspecified (7) Ambulatory dysfunction Current Visit: Yes Status: Acute Assessment and plan: Plan as above. Continue PT/OT while inpatient. (8) Diabetes mellitus Current Visit: Yes Status: Chronic Assessment and plan: A1c was 6.1 in June. Continue SSI, Accu-Cheks achs, and diabetic diet. Qualifiers: Diabetes mellitus type: type 2 Diabetes mellitus complication status: with unspecified complications Diabetes mellitus long-term insulin use: without terminal press operator use Qualified Code(s): E11.8 - Type 2 diabetes mellitus with unspecified complications (9) Hypokalemia Current Visit: Yes Status: Resolved Assessment and plan: resolved. Continue to monitor. 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 Continue to monitor H&H. 8.3 today. Prepare to transfuse if less than 8. Patient reports feeling fatigued and weak recently. She is symptomatic with anemia. No obvious signs of bleeding. Monitor H and H. Qualifiers: Anemia type: other cause Other causes of anemia: antineoplastic chemotherapy Qualified Code(s): D64.81 - Anemia due to antineoplastic chemotherapy; T45.1X5A - Adverse effect of antineoplastic and immunosuppressive drugs, initial encounter; T45.1X5A - Adverse effect of antineoplastic and immunosuppressive drugs, initial encounter (11) DVT prophylaxis Current Visit: Yes Status: Acute Assessment and plan: TIKA rojas ordered. Encourage pt to get to chair. (12) Decrease in appetite Current Visit: Yes Status: Acute Assessment and plan: Patient reports recent decrease in appetite at home. She states she simply does not feel like eating. Patient has been started on Marinol 2.5 mg by mouth twice daily per the recommendation of oncology. Pt appears to be eating better and has gained weight. Continue to monitor. Add supplement shakes. - Time Spent With Patient less than 15 minutes - Subjective Interval history: Patient was seen and assessed at bedside at 0905 AM. She is alert, awake, oriented, answers questions appropriately. She denies headache or blurred vision. She denies any chest pain or shortness of breath. No nausea, vomiting , diarrhea or abdominal pain. Pt reports back pain, patient states she has not been out of bed. I have encouraged her to get up and move around to the chair today. She was agreeable, primary nurse is aware. Patient also reports constipation and no bowel movement since arrival. Medications ordered. - Constitutional Vitals: Temp Pulse Resp BP Pulse Ox 99.3 F 80 16 144/74 93 11/07/17 12:01 11/07/17 12:01 11/07/17 13:01 11/07/17 12:01 11/07/17 13:01 General appearance: Present: cooperative, A&O X 3, pleasant, no acute distress, obese, answers questions appropriately - Head Head exam: Present: atraumatic, normal inspection, normocephalic - Eye Eye exam: Present: normal appearance, conjuntiva pink, sclera anicteric - Neck Neck exam general surgery: Present: supple, trachea midline. Absent: lymphadenopathy - Respiratory Respiratory exam: Present: decreased breath sounds, CTAB. Absent: accessory muscle use, chest wall tenderness, rales, respiratory distress, rhonchi, wheezes - Cardiovascular Cardiovascular exam: Present: RRR, +S1, +S2. Absent: diastolic murmur, gallop, rubs, systolic murmur - GI/Abdominal GI/Abdominal exam: Present: normal bowel sounds, soft. Absent: distended, hepatomegaly, tenderness - Extremities Exam Extremities exam: Present: warm, radial pulses palpable and symmetrical. Absent : calf tenderness, cyanotic, pedal edema - Neurological Exam Neurological exam: Present: alert, oriented X3, no focal deficits. Absent: altered, facial droop, speech deficit - Skin Skin exam: Present: dry, intact, normal color, warm. Absent: rash Internal Medicine: Result - Labs CBC & Chem 7: 11/07/17 04:07 11/07/17 04:07 Labs: Short CBC 11/07/17 Range/Units 04:07 WBC 20.7 H (4.3-11.1) K/mcL Hgb 8.3 L (11.5-15.4) g/dL Hct 27.3 L (35.3-44.9) % Plt Count 411 H (140-400) K/mcL Neutrophils # 17.8 H (1.6-8.9) K/mcL BMP 11/07/17 04:07 Sodium 138 Potassium 4.0 Chloride 105 Carbon Dioxide 28 BUN 17 Creatinine 0.57 L Glucose 177 H Calcium 7.4 L Liver Function 11/07/17 Range/Units 10:27 Total Bilirubin 0.4 (0.3-1.0) mg/dL Direct Bilirubin 0.2 (0.0-0.2) mg/dL AST 15 (13-39) Units/L ALT 26 (7-52) Units/L Alkaline Phosphatase 72 (34-104) Units/L Albumin 2.1 L (3.5-5.7) g/dL - ABG Interpretation ABG results: PT/INR, D-dimer PT 16.7 Seconds (9.4-12.1) H 11/07/17 10:27 Consult Discharge Plan - Plan Referrals: Jeffery Anderson MD [Partnered Physician] - 11/21/17 1:40 pm Swati Rios DO [Primary Care Provider] -
[2017-11-08] MEDS: Ipratropium/Albuterol Neb 3 ML IH SCH ×6 (04:12→23:18)
[2017-11-08 06:21] LABS: Basophils % 0.2 %; Eosinophils # 0.3 K/mcL (0.0-0.6); Eosinophils % 1.6 %; Hematocrit 25.8 % (35.3-44.9); Immature Granulocytes % 1.1 % (0-4); Lymphocytes # 0.8 K/mcL (0.6-4.6); Lymphocytes % 4.4 %; Mean Corpuscular Volume 87.2 fL (83.0-100.0); Mean Platelet Volume 9.7 fL (9.4-12.4); Monocytes # 1.2 K/mcL (0.0-1.3); Monocytes % 6.7 %; Neutrophils # 14.8 K/mcL (1.6-8.9); Platelet Count 386 K/mcL (140-400); Red Blood Count 2.96 M/mcL (3.82-4.97); Red Cell Distribution Width 16.2 % (11.5-14.5)
[2017-11-08 06:23] LABS: BUN/Creatinine Ratio 27 (6-26); Blood Urea Nitrogen 13 mg/dL (8-23); Calcium 7.1 mg/dL (8.6-10.3); Carbon Dioxide 29 mEq/L (23-29); Chloride 104 mEq/L (98-107); Glucose 135 mg/dL (70-105); Osmolality,Calculated 290 (280-300); Potassium 3.7 mEq/L (3.5-5.1); Sodium 139 mEq/L (136-145); eGFR For African Americans > 60 (> 60); eGFR For Non-African Americans > 60 (> 60)
[2017-11-08] MEDS: Insulin LISPRO 300 UNITS/3 ML VIAL SQ SCH ×4 (08:19→20:39)
[2017-11-08] MEDS: Cholecalciferol (D-3) 1,000 UNIT TABLET PO SCH (08:43)
[2017-11-08] MEDS: Aspirin Enteric Coated 81 MG Tablet PO SCH (08:43)
[2017-11-08] MEDS: Ascorbic Acid 500 MG TABLET PO SCH (08:43)
[2017-11-08] MEDS: Furosemide 20 MG/2 ML VIAL IVP SCH ×2 (08:52→20:33)
[2017-11-08] MEDS: Azithromycin 500 MG in D5% in Water 250 ML IVPB SCH (08:52)
[2017-11-08] MEDS: cefTRIAXone 2,000 MG in Water for inj. (sterile) 20 ML 20 ML IVP SCH (08:52)
[2017-11-08] MEDS ORDERED: 0.9 % Sodium Chloride 1,000 ML IVC ONE ×2 (10:10→17:23)
[2017-11-08] MEDS: Multivitamin Liquid 15 ML UDC PO SCH (10:42)
[2017-11-08] MEDS: Vancomycin 1,500 MG in D5% in Water 250 ML IVPB SCH (12:47)
[2017-11-08] MEDS: 0.9 % Sodium Chloride 1,000 ML IVC SCH ×2 (12:48→20:40)
--- NOTE | 2017-11-08 14:14 | Internal Med Progress Note ---
Date of Encounter: 11/08/17 Time of Encounter: 10:30 - Assessment and plan (1) Pneumonia Current Visit: Yes Status: Acute Assessment and plan: chest CT with bilateral pleural effusions with adjacent consolidation concerning for pneumonia. Continue IV Vanco, Zosyn. Resp PCR, urinary antigens and sputum culture pending Qualifiers: Laterality: bilateral Lung location: lower lobe of lung Qualified Code(s) : J18.9 - Pneumonia, unspecified organism (2) Sepsis Current Visit: Yes Status: Acute Assessment and plan: with leukocytosis, fever, and tachycardia; secondary to community-acquired pneumonia. Blood cultures and lactic negative. Initial chest x-ray was negative , chest CT showed new bilateral pleural effusions with adjacent lung consolidation. Initially with Levaquin however she developed a fever and WBC increased. Levaquin stopped and Zosyn, vanco added. Repeat lactic acid 3.1, received IV fluids. Hemodynamically stable, no tachycardia or hypotension. Continue IV Vanco, Zosyn. Monitor repeat lactic acid. Qualifiers: Sepsis type: sepsis due to unspecified organism Qualified Code(s): A41.9 - Sepsis, unspecified organism (3) Lung cancer Current Visit: No Status: Chronic Assessment and plan: per hx. 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 Follows with Dr. Anderson. Holding chemotherapy. Oncology consulted Qualifiers: Laterality: right Lung location: upper lobe of lung Qualified Code(s): C34.11 - Malignant neoplasm of upper lobe, right bronchus or lung (4) ADDIS (acute kidney injury) Current Visit: Yes Status: Acute Assessment and plan: Cr 1.5 on admission; baseline normal. Suspect secondary to poor by mouth intake and sepsis. Renal function normalized with IV fluids. Avoid nephrotoxic agents as possible. Monitor repeat renal function (5) Fall Current Visit: Yes Status: Acute Assessment and plan: with chronic numbness to bilateral lower extremities with generalized weakness and fatigue due to chemotherapy. Evaluated by PT/OT who is recommending SNF. Consult social media content specialist on Friday for discharge planning Qualifiers: Encounter type: initial encounter Qualified Code(s): W19.XXXA - Unspecified fall, initial encounter (6) Anemia Current Visit: Yes Status: Acute Assessment and plan: secondary to chemotherapy and chronic disease. No active bleeding. Monitor H&H, transfuse for Hgb less than 8. Qualifiers: Anemia type: other cause Other causes of anemia: antineoplastic chemotherapy Qualified Code(s): D64.81 - Anemia due to antineoplastic chemotherapy; T45.1X5A - Adverse effect of antineoplastic and immunosuppressive drugs, initial encounter; T45.1X5A - Adverse effect of antineoplastic and immunosuppressive drugs, initial encounter (7) DVT prophylaxis Current Visit: Yes Status: Acute Assessment and plan: heparin - Subjective Interval history: Seen and examined at bedside, patient is new to me. Information obtained from chart review and patient report. Patient says she feels weak and tired, doesn't feel much better. Has a non-productive cough. No CP or SOB. - Constitutional Vitals: Temp Pulse Resp BP Pulse Ox 98.4 F 95 16 146/72 96 11/08/17 11:20 11/08/17 11:20 11/08/17 11:20 11/08/17 11:20 11/08/17 11:20 General appearance: Present: cooperative, A&O X 3, pleasant, no acute distress, obese, answers questions appropriately - Head Head exam: Present: atraumatic, normocephalic - Eye Eye exam: Present: PERRL, conjuntiva pink, sclera anicteric Pupils: Present: PERRL - Neck Neck exam general surgery: Present: supple, trachea midline. Absent: lymphadenopathy - Respiratory Respiratory exam: Present: CTAB. Absent: accessory muscle use, rales, rhonchi, wheezes - Cardiovascular Cardiovascular exam: Present: RRR, +S1, +S2. Absent: diastolic murmur, gallop, rubs, systolic murmur - GI/Abdominal GI/Abdominal exam: Present: normal bowel sounds, soft, no peritoneal signs. Absent: distended, tenderness - Extremities Exam Extremities exam: Present: warm, radial pulses palpable and symmetrical. Absent : calf tenderness, cyanotic, pedal edema - Neurological Exam Neurological exam: Present: CN II-XII intact, oriented X3, no focal deficits. Absent: pronater drift, facial droop, speech deficit - Skin Skin exam: Present: dry, intact Internal Medicine: Result - Labs CBC & Chem 7: 11/08/17 05:46 11/08/17 05:46 Labs: Short CBC 11/08/17 Range/Units 05:46 WBC 17.2 H (4.3-11.1) K/mcL Hgb 8.0 L (11.5-15.4) g/dL Hct 25.8 L (35.3-44.9) % Plt Count 386 (140-400) K/mcL Neutrophils # 14.8 H (1.6-8.9) K/mcL BMP 11/08/17 05:46 Sodium 139 Potassium 3.7 Chloride 104 Carbon Dioxide 29 BUN 13 Creatinine 0.49 L Glucose 135 H Calcium 7.1 L - ABG Interpretation ABG results: PT/INR, D-dimer PT 16.7 Seconds (9.4-12.1) H 11/07/17 10:27 - VTE Documentation of Mechanical Device: Graduated compression elastic hosiery Consult Discharge Plan - Plan Referrals: Jeffery Anderson MD [Partnered Physician] - 11/21/17 1:40 pm Swati Rios DO [Primary Care Provider] -
[2017-11-08 17:14] LABS: Adenovirus Not Detected (Not Detect); Bordetella Pertussis Not Detected (Not Detect); Chlamydophila pneumoniae Not Detected (Not Detect); Coronavirus 229E Not Detected (Not Detect); Coronavirus HKU1 Not Detected (Not Detect); Coronavirus NL63 Not Detected (Not Detect); Coronavirus OC43 Not Detected (Not Detect); Human Metapneumovirus Not Detected (Not Detect); Human Rhinovirus/Enterovirus Not Detected (Not Detect); Influenza A Subtype 2009 H1 Not Detected (Not Detect); Influenza A Untypeable Not Detected (Not Detect); Influenza B Not Detected (Not Detect); Mycoplasma pneumoniae Not Detected (Not Detect); Parainfluenza Virus 1 Not Detected (Not Detect); Parainfluenza Virus 2 Not Detected (Not Detect); Parainfluenza Virus 3 Not Detected (Not Detect); Parainfluenza Virus 4 Not Detected (Not Detect); Respiratory Syncytial Virus Not Detected (Not Detect)
[2017-11-08] MEDS: Piperacillin/Tazobactam 3.375 GM/200 ML BAG IVPB SCH (17:31)
[2017-11-08] MEDS: *HR* Heparin 5,000 UNIT/ML VIAL SQ SCH (17:33)
[2017-11-09] MEDS: Piperacillin/Tazobactam 3.375 GM/200 ML BAG IVPB SCH ×3 (02:18→20:21)
[2017-11-09] MEDS: Ipratropium/Albuterol Neb 3 ML IH SCH ×6 (03:58→23:51)
[2017-11-09] MEDS: *HR* Heparin 5,000 UNIT/ML VIAL SQ SCH (06:13)
[2017-11-09 07:53] LABS: BUN/Creatinine Ratio 26 (6-26); Blood Urea Nitrogen 12 mg/dL (8-23); Calcium 6.9 mg/dL (8.6-10.3); Carbon Dioxide 28 mEq/L (23-29); Chloride 104 mEq/L (98-107); Glucose 183 mg/dL (70-105); Osmolality,Calculated 290 (280-300); Potassium 3.3 mEq/L (3.5-5.1); Sodium 138 mEq/L (136-145); eGFR For African Americans > 60 (> 60); eGFR For Non-African Americans > 60 (> 60)
[2017-11-09 08:02] LABS: Hematocrit 25.5 % (35.3-44.9); Hemoglobin 7.8 g/dL (11.5-15.4); Mean Corpuscular HGB Conc 30.6 g/dL (31.6-35.5); Mean Corpuscular Hemoglobin 26.1 pg (28.0-33.3); Mean Corpuscular Volume 85.3 fL (83.0-100.0); Mean Platelet Volume 9.8 fL (9.4-12.4); Platelet Count 391 K/mcL (140-400); Red Blood Count 2.99 M/mcL (3.82-4.97); Red Cell Distribution Width 16.5 % (11.5-14.5)
[2017-11-09] MEDS: Furosemide 20 MG/2 ML VIAL IVP SCH ×2 (08:22→20:20)
[2017-11-09] MEDS: Multivitamin Liquid 15 ML UDC PO SCH (08:22)
[2017-11-09] MEDS: Insulin LISPRO 300 UNITS/3 ML VIAL SQ SCH ×4 (08:22→20:21)
[2017-11-09] MEDS: Cholecalciferol (D-3) 1,000 UNIT TABLET PO SCH (08:23)
[2017-11-09] MEDS: Aspirin Enteric Coated 81 MG Tablet PO SCH (08:23)
[2017-11-09] MEDS: Ascorbic Acid 500 MG TABLET PO SCH (08:23)
[2017-11-09] MEDS: 0.9 % Sodium Chloride 1,000 ML IVC SCH (08:51)
[2017-11-09 09:18] LABS: Vancomycin,Trough 9.3 mcg/mL (10-20)
--- NOTE | 2017-11-09 10:56 | Internal Med Progress Note ---
Date of Encounter: 11/09/17 Time of Encounter: 10:56 - Assessment and plan (1) Pneumonia Current Visit: Yes Status: Acute Assessment and plan: chest CT with bilateral pleural effusions with adjacent consolidation concerning for pneumonia. Initially treated with IV Levaquin, azithromycin and Rocephin. WBC increased to 23K and she spiked fever on 11/06. Repeat lactic acid 3.1. She was treated with IV fluids and ATB broadened to Vanco and Zosyn. Lactic acid normalized with IV fluids. Urinary antigens, respiratory PCR and blood cultures negative. Continues to have fluctuating WBC. Discussed case with Dr. Ahumada and will check CTA to assess for possible postobstructive pneumonia. Hemodynamically stable, no hypotension. Had transient tachycardia which now is resolved. Continue IV Vanco, Zosyn. Qualifiers: Laterality: bilateral Lung location: lower lobe of lung Qualified Code(s) : J18.9 - Pneumonia, unspecified organism (2) Sepsis Current Visit: Yes Status: Acute Assessment and plan: with leukocytosis, fever, and tachycardia; secondary to community-acquired pneumonia. Blood cultures and lactic negative. Initial chest x-ray was negative , chest CT showed new bilateral pleural effusions with adjacent lung consolidation. Initially with Levaquin however she developed a fever and WBC increased and ATB broadened to Vanco, Zosyn. Repeat lactic acid 3.1 which normalized with IV fluids. Blood cultures, urinary antigens, respiratory PCR, UA negative. Had increase in WBC 11/09; panculture ordered. Continue IV Vanco , Zosyn. Qualifiers: Sepsis type: sepsis due to unspecified organism Qualified Code(s): A41.9 - Sepsis, unspecified organism (3) Lung cancer Current Visit: No Status: Chronic Assessment and plan: per hx. 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 Follows with Dr. Anderson. Holding chemotherapy. Oncology consulted Qualifiers: Laterality: right Lung location: upper lobe of lung Qualified Code(s): C34.11 - Malignant neoplasm of upper lobe, right bronchus or lung (4) ADDIS (acute kidney injury) Current Visit: Yes Status: Acute Assessment and plan: Cr 1.5 on admission; baseline normal. Suspect secondary to poor by mouth intake and sepsis. Renal function normalized with IV fluids. Avoid nephrotoxic agents as possible. Monitor repeat renal function (5) Fall Current Visit: Yes Status: Acute Assessment and plan: with chronic numbness to bilateral lower extremities with generalized weakness and fatigue due to chemotherapy. Evaluated by PT/OT who is recommending SNF. Consult director of social services on Friday for discharge planning Qualifiers: Encounter type: initial encounter Qualified Code(s): W19.XXXA - Unspecified fall, initial encounter (6) Anemia Current Visit: Yes Status: Acute Assessment and plan: secondary to chemotherapy and chronic disease. No active bleeding. Hgb 7.8 on . Suspect multifactorial with chemotherapy dilutional value and possible nic from chemotherapy. Monitor H&H, transfuse for Hgb less than 7 Qualifiers: Anemia type: other cause Other causes of anemia: antineoplastic chemotherapy Qualified Code(s): D64.81 - Anemia due to antineoplastic chemotherapy; T45.1X5A - Adverse effect of antineoplastic and immunosuppressive drugs, initial encounter; T45.1X5A - Adverse effect of antineoplastic and immunosuppressive drugs, initial encounter (7) Hypocalcemia Current Visit: Yes Status: Acute Assessment and plan: Ca 6.9, albumin 2.1. Corrected calcium 8.2. Give one-time dose IV calcium gluconate. Monitor repeat CMP (8) DVT prophylaxis Current Visit: Yes Status: Acute Assessment and plan: SCds with anemia - Subjective Interval history: Seen and examined at bedside, patient says she feels significantly better on today's exam. She complains of constipation and requesting home MiraLAX be restarted. Last BM 2 days ago. No fevers or chills. - Constitutional Vitals: Temp Pulse Resp BP Pulse Ox 98.7 F 115 16 145/70 98 11/09/17 07:06 11/09/17 07:06 11/09/17 07:45 11/09/17 07:06 11/09/17 07:45 General appearance: Present: cooperative, A&O X 3, pleasant, no acute distress, obese, answers questions appropriately - Head Head exam: Present: atraumatic, normocephalic - Eye Eye exam: Present: PERRL, conjuntiva pink, sclera anicteric Pupils: Present: PERRL - Neck Neck exam general surgery: Present: supple, trachea midline. Absent: lymphadenopathy - Respiratory Respiratory exam: Present: CTAB. Absent: accessory muscle use, rales, rhonchi, wheezes - Cardiovascular Cardiovascular exam: Present: RRR, +S1, +S2. Absent: diastolic murmur, gallop, rubs, systolic murmur - GI/Abdominal GI/Abdominal exam: Present: normal bowel sounds, soft, no peritoneal signs. Absent: distended, tenderness - Extremities Exam Extremities exam: Present: pedal edema, warm, radial pulses palpable and symmetrical. Absent: calf tenderness, cyanotic Additional comments: Bilateral lower extremity edema right greater than left - Neurological Exam Neurological exam: Present: CN II-XII intact, oriented X3, no focal deficits. Absent: pronater drift, facial droop, speech deficit - Skin Skin exam: Present: dry, intact Internal Medicine: Result - Labs CBC & Chem 7: 11/09/17 07:25 11/09/17 07:25 Labs: Short CBC 11/09/17 Range/Units 07:25 WBC 22.3 H (4.3-11.1) K/mcL Hgb 7.8 L (11.5-15.4) g/dL Hct 25.5 L (35.3-44.9) % Plt Count 391 (140-400) K/mcL BMP 11/09/17 07:25 Sodium 138 Potassium 3.3 L Chloride 104 Carbon Dioxide 28 BUN 12 Creatinine 0.47 L Glucose 183 H Calcium 6.9 L - ABG Interpretation ABG results: PT/INR, D-dimer PT 16.7 Seconds (9.4-12.1) H 11/07/17 10:27 - VTE Documentation of Mechanical Device: Graduated compression elastic hosiery Consult Discharge Plan - Plan Referrals: Jeffery Anderson MD [Partnered Physician] - 11/21/17 1:40 pm Swati Rios DO [Primary Care Provider] -
[2017-11-09] MEDS ORDERED: Calcium Gluconate 1,000 MG in D5% in Water 100 ML IVPB ONE (14:49)
[2017-11-09] MEDS: Vancomycin 1,500 MG in D5% in Water 250 ML IVPB SCH (14:53)
--- NOTE | 2017-11-09 19:43 | Oncology Inp Consult Note ---
Date of Encounter: 11/09/17 Time of Encounter: 19:38 Assessment and Plan (1) Neuropathy Status: Acute Assessment and plan: Idiopathic and progressive. She is getting weaker and was likely the primary contribution to her weakness and fall. (2) Lung cancer Status: Chronic Assessment and plan: appears to have stable disease. I dont suspect that the small effusions represent progression. The cough is new since entering the hospital and is improving with abx. Agree with holding crizotinib until her other medical problems stabilize. Qualifiers: Laterality: right Lung location: upper lobe of lung Qualified Code(s): C34.11 - Malignant neoplasm of upper lobe, right bronchus or lung (3) Leukocytosis Status: Acute Assessment and plan: Agree that there is underlying infection. Agree with broadening of abx. Qualifiers: Leukocytosis type: unspecified Qualified Code(s): D72.829 - Elevated white blood cell count, unspecified - Data of Consult Requesting Physician: Cecilia Miner CNP Primary Care Provider: Swati Rios DO - Consult Narrative Reason for consult: lung cancer History of present illness: Ms. 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 She could not get up. She lay there 2 days and 2 nights until her daughter found her. She was brought to the hospital and started on antibiotics for presumed pneumonia. Prior to falling, her legs were getting weaker and were both numb. She has been on steroids for a short time in the past. She has had the sensory neuropathy for about 2-3 years even prior to the cancer diagnosis. she has significant weakness in the R leg. the L leg is a bit stronger. We are consulted regarding the lung cancer. She had CTs which show small bilateral pleural effusions but otherwise stable neoplastic findings. Past Med Surg Social Fam HX - Past Medical History Medical history: cancer, diabetes, hyperlipidemia, hypertension, other Psychiatric history: no psych history - Past Surgical History Surgical History: cancer surgery, knee replacement - Social History Smoking Status: Never smoker Smokeless Tobacco Status: No Alcohol use: none Drug use: none - Family History Mother Living Status: Age at : 80 Cause of : natural causes Hx Family Cardiac Disorders: Yes (cabg, heart failure) Hx Family Respiratory Disorders: Yes Hx Family Psychosocial Disorders: Yes (dementia) Father Living Status: Age at : 67 Cause of : colon cancer Hx Family Cancer: Yes (colon) Medications and Allergies Calcium Carbonate/Vitamin D3 [Calcium 600 + D Tablet] 1 each PO DAILY 05/22/15 [ History] Glimepiride [Amaryl] 2 mg PO DAILY 05/22/15 [History] Gluc HCl/Csa/Collagen/Hyalur A [Glucosamine Chondroitin Cap] 1 each PO DAILY 01/01 [History] Lisinopril/Hydrochlorothiazide [Lisinopril-Hctz 20-12.5 mg Tab] 1 each PO BID [History] Metoprolol Tartrate 50 mg PO BID 05/22/15 [History] Multivitamin/Iron/Folic Acid [Centrum Complete Multivit Tab] 1 each PO DAILY 01/01 [History] Simvastatin [Zocor] 20 mg PO HS 05/22/15 [History] LORazepam [Ativan] 0.5 mg PO Q8H PRN #24 tablet 12/10/16 [Rx] Polyethylene Glycol 3350 [MiraLAX] 17 gm PO DAILY PRN 12/10/16 [History] Sertraline [Zoloft] 25 mg PO DAILY #30 tablet 12/10/16 [Rx] Cholecalciferol (D-3) [Vitamin D] 1,000 unit PO BID 02/07/17 [History] Morphine Immed Rel [Morphine Sulfate] 15 mg PO Q2H PRN #30 tab 03/21/17 [Rx] Ascorbic Acid [Vitamin C] 1,000 mg PO DAILY 08/21/17 [History] HYDROcodone/Acet 5/325 mg [[place] 5-325 mg] 1 tab PO Q6H PRN #60 tab 09/03/17 [Rx ] Docusate [Colace] 200 mg PO BID #120 capsule 10/07/17 [Rx] Lactulose 20 gm PO QID PRN #240 ml 10/07/17 [Rx] Crizotinib [Xalkori] 250 mg PO BID #60 capsule 10/30/17 [Rx] Aspirin Enteric Coated [Aspirin EC] 81 mg PO DAILY 11/03/17 [History] Dexamethasone [Decadron] 4 mg PO DAILY 11/03/17 [History] Loperamide [Imodium] 2 mg PO PER PKG DI PRN 11/03/17 [History] Omeprazole [PriLOSEC] 20 mg PO DAILY 11/03/17 [History] 3 Allergy/AdvReac Type Severity Reaction Status Date / Time Sulfa (Sulfonamide Allergy Unknown Fainting Verified 10/07/17 11:18 Antibiotics) Constitutional: Present: fever(s), weight loss. Absent: night sweats, weight gain Nose, mouth and throat: Absent: dysphagia Cardiovascular: Present: leg edema Respiratory: Present: cough. Absent: dyspnea Additional comments: cough is improving. Of note, it was not present prior to admission. swelling ofhte RLE since knee replacement on the R Gastrointestinal: Absent: diarrhea, nausea, vomiting Musculoskeletal: Present: muscle weakness Neurological: Present: as per HPI Hematologic/Lymphatic: Absent: easy bruising Oncology - Exam - Constitutional Vitals: Temp Pulse Resp BP Pulse Ox 99.2 F 128 17 130/65 94 11/09/17 18:54 11/09/17 18:54 11/09/17 18:54 11/09/17 18:54 11/09/17 18:54 - Head Head exam: Present: normal inspection - Eye Eye exam: Present: EOMI - Neck Neck exam: Present: full ROM. Absent: lymphadenopathy - Cardiovascular Cardiovascular exam: Present: RRR - GI/Abdominal GI/Abdominal exam: Present: normal bowel sounds, soft - Extremities Exam Extremities exam: Present: pedal edema Additional comments: slight swelling of the RLE. - Neurological Exam Neurological exam: Present: alert, oriented X3 Oncology - Results Labs: Short CBC 11/09/17 Range/Units 07:25 WBC 22.3 H (4.3-11.1) K/mcL Hgb 7.8 L (11.5-15.4) g/dL Hct 25.5 L (35.3-44.9) % Plt Count 391 (140-400) K/mcL BMP 11/09/17 07:25 Sodium 138 Potassium 3.3 L Chloride 104 Carbon Dioxide 28 BUN 12 Creatinine 0.47 L Glucose 183 H Calcium 6.9 L Consult Discharge Plan - Plan Referrals: Jeffery Anderson MD [Partnered Physician] - 11/21/17 1:40 pm Swati Rios DO [Primary Care Provider] -
[2017-11-09 23:55] LABS: Bilirubin,Urine Negative (Negative); Blood,Urine Large (Negative); Clarity,Urine Turbid (Clear); Color,Urine Yellow (Yellow); Glucose,Urine (UA) Normal (Normal); Ketones,Urine Negative (Negative); Leukocyte Esterase,Urine Large (Negative); Nitrite,Urine Negative (Negative); Protein,Urine 100 mg/dL (Neg-Trace); Specific Gravity,Urine 1.027 (1.010-1.025); Urobilinogen,Urine Normal (Normal)
[2017-11-09 23:57] LABS: WBC,Urine TNTC per hpf (0-3)
[2017-11-10 00:15] LABS: Bacteria,Urine Many per hpf (None-Few); Squamous Epithelial Cell,Urine Few per lpf (None-Few); Yeast,Urine Many per hpf (None Seen)
[2017-11-10 00:17] LABS: RBC,Urine 50-100 per hpf (0-3)
[2017-11-10] MEDS: Vancomycin 1,250 MG in D5% in Water 250 ML IVPB SCH ×2 (03:31→15:29)
[2017-11-10] MEDS: Ipratropium/Albuterol Neb 3 ML IH SCH ×6 (04:20→23:11)
[2017-11-10 04:48] LABS: Hemoglobin 8.3 g/dL (11.5-15.4); Mean Platelet Volume 9.7 fL (9.4-12.4)
[2017-11-10 04:49] LABS: Hematocrit 26.5 % (35.3-44.9); Mean Corpuscular HGB Conc 31.3 g/dL (31.6-35.5); Mean Corpuscular Hemoglobin 26.3 pg (28.0-33.3); Mean Corpuscular Volume 84.1 fL (83.0-100.0); Platelet Count 423 K/mcL (140-400); Red Blood Count 3.15 M/mcL (3.82-4.97); Red Cell Distribution Width 16.4 % (11.5-14.5)
[2017-11-10] MEDS: Piperacillin/Tazobactam 3.375 GM/200 ML BAG IVPB SCH ×2 (04:55→12:27)
[2017-11-10 05:17] LABS: Alanine Aminotransferase 21 Units/L (7-52); Albumin/Globulin Ratio 0.7 (1.1-2.2); Alkaline Phosphatase 87 Units/L (34-104); Aspartate Amino Transferase 17 Units/L (13-39); BUN/Creatinine Ratio 18 (6-26); Bilirubin,Total 0.6 mg/dL (0.3-1.0); Blood Urea Nitrogen 14 mg/dL (8-23); Calcium 7.3 mg/dL (8.6-10.3); Carbon Dioxide 28 mEq/L (23-29); Chloride 102 mEq/L (98-107); Globulin 2.9 g/dL (2.4-3.5); Glucose 164 mg/dL (70-105); Osmolality,Calculated 292 (280-300); Potassium 3.1 mEq/L (3.5-5.1); Sodium 139 mEq/L (136-145); Total Protein 4.9 g/dL (6.4-8.9); eGFR For African Americans > 60 (> 60); eGFR For Non-African Americans > 60 (> 60)
[2017-11-10] MEDS ORDERED: Aminoglycoside Consult 1 EACH MC ONE (07:24)
[2017-11-10] MEDS: Insulin LISPRO 300 UNITS/3 ML VIAL SQ SCH ×4 (08:34→20:43)
[2017-11-10] MEDS: Multivitamin Liquid 15 ML UDC PO SCH (08:34)
[2017-11-10] MEDS: Furosemide 20 MG/2 ML VIAL IVP SCH ×2 (08:34→20:43)
[2017-11-10] MEDS: Cholecalciferol (D-3) 1,000 UNIT TABLET PO SCH (08:35)
[2017-11-10] MEDS: Aspirin Enteric Coated 81 MG Tablet PO SCH (08:35)
[2017-11-10] MEDS: Ascorbic Acid 500 MG TABLET PO SCH (08:35)
--- NOTE | 2017-11-10 14:05 | Infectious Disease Consult ---
Date of Encounter: 11/10/17 Time of Encounter: 14:05 Assessment and Plan (1) Leukocytosis Status: Acute Assessment and plan: Etiology not clear. Infectious versus inflammatory versus malignancy versus other. At this point I really don't see an infectious nidus based on the physical exam and review of system imaging revealed. Patient has had a CT chest on 11/05/2017, had a chest x-ray on 11/09/[address] chest on 11/10/2017 both of which revealed pleural effusion atelectasis and no obvious pneumonia. Patient had a respiratory infectious panel which was negative Urologic legionella and pneumococcal antigen done twice and was negative. Blood cultures have been obtained and have been negative. I feel comfortable stopping all antibiotics and observing and see how the patient does clinically. If the patient shows signs of sepsis, fevers again, worsening hypertension, we will reevaluate. We'll check a peripheral smear just to make sure the patient doesn't have toxic granulocytes or Lewy bodies. We'll see what the CT abdomen and pelvis revealed. Qualifiers: Leukocytosis type: unspecified Qualified Code(s): D72.829 - Elevated white blood cell count, unspecified (2) Pneumonia Status: Acute Assessment and plan: I believe the patient has a pneumonia based on the imaging and the clinical picture. Patient denies any cough or sputum production or hemoptysis Probably has atelectasis and chronic changes and pleural effusion Patient has had a CT chest on 11/05/2017, had a chest x-ray on 11/09/[address] chest on 11/10/2017 both of which revealed pleural effusion atelectasis and no obvious pneumonia. Patient had a respiratory infectious panel which was negative Urologic legionella and pneumococcal antigen done twice and was negative. Blood cultures have been obtained and have been negative. I feel comfortable stopping all antibiotics and observing and see how the patient does clinically. Qualifiers: Laterality: bilateral Lung location: lower lobe of lung Qualified Code(s) : J18.9 - Pneumonia, unspecified organism (3) Ambulatory dysfunction Status: Acute (4) ADDIS (acute kidney injury) Status: Acute Assessment and plan: Likely due to dehydration and early rhabdomyolysis Improved (5) Elevated CK Status: Acute (6) Diabetes mellitus Status: Chronic Qualifiers: Diabetes mellitus type: type 2 Diabetes mellitus complication status: with unspecified complications Diabetes mellitus longwall foreman insulin use: without prison use Qualified Code(s): E11.8 - Type 2 diabetes mellitus with unspecified complications (7) Dehydration Status: Resolved (8) Lung cancer Status: Chronic Qualifiers: Laterality: right Lung location: upper lobe of lung Qualified Code(s): C34.11 - Malignant neoplasm of upper lobe, right bronchus or lung Infectious Disease HPI - Data of Consult Patient: new to practice Consult date: 11/10/17 Requesting Physician: Cecilia Miner CNP Primary Care Provider: Swati Rios DO - Consult Narrative Reason for consult: persistent leukocytosis and pneumonia History of present illness: Ms. Wasserman is a 87 year old female Patient is an 87-year-old woman with the past medical history mentioned below was seen in the emergency department on 11/03/2017 with mechanical fall with hip pain and admitted to [facility] for acute kidney injury, dehydration fall and leukocytosis. We are consulted on 11/10/2017 for persistent leukocytosis. Most of the information was taken from medical record today. 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 Exact details of the fall are not clear since the patient cannot remember. Not sure there was a syncopal episode. Patient arrived to the ED complaining of right hip pain. On admission patient was not febrile, heart rate was normal, presenting labs with a WBC of 18.8 thousand with neutrophil predominance, acute kidney injury with a creatinine of 1.26 sent to be on a 52 and a CK of 352. A urinalysis was obtained which showed no pyuria. Respiratory infectious panel was obtained and did not detect any viruses or bacteria. Imaging on admission revealed no acute processes in the cervical spine, no acute fracture or osseous abnormality in the right femur, no acute intracranial abnormality, no acute process on the pelvic x-ray, and no acute process in the chest x-ray. On 11/05/2017 patient spiked a fever of 100.6 and became tachycardic. Patient continues to have leukocytosis. Blood cultures were obtained 2 and did not reveal any growth. Urine legionella and pneumococcal antigen were obtained on 119 and have been negative. A CT chest was performed at that time on 11/05/17 which was read as new bilateral pleural effusions with adjacent lung consolidation either atelectasis or pneumonia. No change in focal consolidation posterior right upper lobe. Small mediastinal nodes also appears similar. Patient was started on vancomycin, azithromycin and Rocephin 10/20/18. A chest x-ray was done on 11/09/2017 which was read as no definite findings of pneumonia , bibasilar atelectasis and chronic consolidation in the right upper lobe. Patient was then switched to vancomycin and Zosyn. We were asked to evaluate the patient and make further recommendations. Currently patient laying in bed. About to go down for CT abdomen and pelvis. Pleasant. Does not appear toxic. No acute distress. Denies any headache. Denies any neck pain. Denies any chest pain or shortness of breath. No abdominal pain no diarrhea no nausea no urinary symptoms. CC: Cecilia Miner CNP Past Med Surg Social Fam HX - Past Medical History Medical history: cancer, diabetes, hyperlipidemia, hypertension, other Psychiatric history: no psych history - Past Surgical History Surgical History: cancer surgery, knee replacement - Social History Smoking Status: Never smoker Smokeless Tobacco Status: No Alcohol use: none Drug use: none - Family History Mother Living Status: Age at : 80 Cause of : natural causes Hx Family Cardiac Disorders: Yes (cabg, heart failure) Hx Family Respiratory Disorders: Yes Hx Family Psychosocial Disorders: Yes (dementia) Father Living Status: Age at : 67 Cause of : colon cancer Hx Family Cancer: Yes (colon) Infectious Disease-CN:Meds Calcium Carbonate/Vitamin D3 [Calcium 600 + D Tablet] 1 each PO DAILY 05/22/15 [ History] Glimepiride [Amaryl] 2 mg PO DAILY 05/22/15 [History] Gluc HCl/Csa/Collagen/Hyalur A [Glucosamine Chondroitin Cap] 1 each PO DAILY 01/01 [History] Lisinopril/Hydrochlorothiazide [Lisinopril-Hctz 20-12.5 mg Tab] 1 each PO BID [History] Metoprolol Tartrate 50 mg PO BID 05/22/15 [History] Multivitamin/Iron/Folic Acid [Centrum Complete Multivit Tab] 1 each PO DAILY 01/01 [History] Simvastatin [Zocor] 20 mg PO HS 05/22/15 [History] LORazepam [Ativan] 0.5 mg PO Q8H PRN #24 tablet 12/10/16 [Rx] Polyethylene Glycol 3350 [MiraLAX] 17 gm PO DAILY PRN 12/10/16 [History] Sertraline [Zoloft] 25 mg PO DAILY #30 tablet 12/10/16 [Rx] Cholecalciferol (D-3) [Vitamin D] 1,000 unit PO BID 02/07/17 [History] Morphine Immed Rel [Morphine Sulfate] 15 mg PO Q2H PRN #30 tab 03/21/17 [Rx] Ascorbic Acid [Vitamin C] 1,000 mg PO DAILY 08/21/17 [History] HYDROcodone/Acet 5/325 mg [[place] 5-325 mg] 1 tab PO Q6H PRN #60 tab 09/03/17 [Rx ] Docusate [Colace] 200 mg PO BID #120 capsule 10/07/17 [Rx] Lactulose 20 gm PO QID PRN #240 ml 10/07/17 [Rx] Crizotinib [Xalkori] 250 mg PO BID #60 capsule 10/30/17 [Rx] Aspirin Enteric Coated [Aspirin EC] 81 mg PO DAILY 11/03/17 [History] Dexamethasone [Decadron] 4 mg PO DAILY 11/03/17 [History] Loperamide [Imodium] 2 mg PO PER PKG DI PRN 11/03/17 [History] Omeprazole [PriLOSEC] 20 mg PO DAILY 11/03/17 [History] 3 Allergy/AdvReac Type Severity Reaction Status Date / Time Sulfa (Sulfonamide Allergy Unknown Fainting Verified 10/07/17 11:18 Antibiotics) Review of systems: 10 point review of systems done, negative other for what is mentioned in history of present illness. Exam - Constitutional Vitals: Temp Pulse Resp BP Pulse Ox 99.0 F 102 16 153/77 95 11/10/17 11:15 11/10/17 11:15 11/10/17 11:15 11/10/17 11:15 11/10/17 11:15 General appearance: no acute distress, no febrile - Head Head exam: Present: atraumatic, normocephalic - Eye Eye exam: Present: EOMI, PERRL, sclera anicteric - ENT ENT exam: Present: mucous membranes moist - Neck Neck exam: Present: full ROM - Respiratory Respiratory exam: Present: CTAB. Absent: rhonchi, wheezes - Cardiovascular Cardiovascular exam: Present: RRR, +S1, +S2 - GI/Abdominal GI/Abdominal exam: Present: normal bowel sounds, soft. Absent: guarding, tenderness - Extremities Exam Extremities exam: Present: full ROM, normal inspection - Neurological Exam Neurological exam: Present: alert, oriented X3. Absent: speech deficit - Psychiatric Psychiatric exam: Present: normal affect, normal mood - Skin Skin exam: Present: normal color. Absent: rash Infectious Disease CN: Results - Labs CBC & Chem 7: 11/10/17 03:25 11/10/17 03:35 Cultures: Cultures 11/08/17 11:20 Legionella Antigen - Final Urine,Catheterized Streptococcus pneumoniae Antigen (M - Final 11/07/17 12:30 Legionella Antigen - Final Urine,Clean Catch Streptococcus pneumoniae Antigen (M - Final 11/05/17 11:24 Blood Culture - Preliminary Peripheral Venipuncture No growth. 11/05/17 11:24 Blood Culture - Preliminary Peripheral Venipuncture No growth. Serology: Serology 11/09/17 11/08/17 11/05/17 Range/Units 23:30 16:11 13:37 Urine Color Yellow Yellow (Yellow) Urine Clarity Turbid A Cloudy A (Clear) Urine pH 6.0 6.5 (5.0-8.0) pH Units Ur Specific [place] 1.027 H 1.024 (1.010-1.025) Urine Protein 100 H 100 H (Neg-Trace) mg/dL Urine Glucose (UA) Normal Normal (Normal) mg/dL Urine Ketones Negative Negative (Negative) mg/dL Urine Blood Large H Negative (Negative) Urine Nitrite Negative Negative (Negative) Urine Bilirubin Negative Negative (Negative) Urine Urobilinogen Normal Normal (Normal) mg/dL Ur Leukocyte Esterase Large H Negative (Negative) Urine Microscopic RBC 50-100 H 0-3 (0-3) per hpf Urine Microscopic WBC TNTC H 5-15 H (0-3) per hpf Ur Squamous Epith Cells Few Many H (None-Few) per lpf Urine Bacteria Many H None Seen (None-Few) per hpf Hyaline Casts None Seen (None-Few) per lpf Urine Yeast Many H (None Seen) per hpf Ur Oval Fat Bodies Present A (Not Present) Ur Culture Indicated? YES A NO (NO) Chlamy pneumoniae PCR Not Detected (Not Detect) Adenovirus (PCR) Not Detected (Not Detect) B. pertussis DNA (PCR) Not Detected (Not Detect) B.parapertussis DNA PCR Not Detected (Not Detect) Coronavirus OC43 (PCR) Not Detected (Not Detect) Coronavirus HKU1 (PCR) Not Detected (Not Detect) Coronavirus 229E (PCR) Not Detected (Not Detect) Coronavirus NL63 (PCR) Not Detected (Not Detect) Human Metapneumovir PCR Not Detected (Not Detect) Influenza A (H1) PCR Not Detected (Not Detect) Influ A (H1N1/09) PCR Not Detected (Not Detect) Influenza A (H3) PCR Not Detected (Not Detect) Influenza A Untype (PCR) Not Detected (Not Detect) Influenza Type B (PCR) Not Detected (Not Detect) M.pneumoniae DNA (PCR) Not Detected (Not Detect) Parainfluenza 1 (PCR) Not Detected (Not Detect) Parainfluenza 2 (PCR) Not Detected (Not Detect) Parainfluenza 3 (PCR) Not Detected (Not Detect) Parainfluenza 4 (PCR) Not Detected (Not Detect) RSV (PCR) Not Detected (Not Detect) Entero/Rhino (PCR) Not Detected (Not Detect) - VTE Documentation of Mechanical Device: Graduated compression elastic hosiery Consult Discharge Plan - Plan Referrals: eJffery Anderson MD [Partnered Physician] - 11/21/17 1:40 pm Swati Rios DO [Primary Care Provider] -
--- NOTE | 2017-11-10 14:26 | Internal Med Progress Note ---
Date of Encounter: 11/10/17 Time of Encounter: 14:24 - Assessment and plan (1) Pneumonia Current Visit: Yes Status: Acute Assessment and plan: chest CT with bilateral pleural effusions with adjacent consolidation concerning for pneumonia. Initially treated with IV Levaquin, azithromycin and Rocephin. WBC increased to 23K and she spiked fever on 11/06. Repeat lactic acid 3.1. She was treated with IV fluids and ATB broadened to Vanco and Zosyn. Lactic acid normalized with IV fluids. Urinary antigens, respiratory PCR and blood cultures negative. Hemodynamically stable, no hypotension. Had transient tachycardia which now is resolved. Today's to have leukocytosis. WBC 28K on 11/10. Chest CTA negative for pulmonary embolism, UA indicative of UTI, urine culture pending. No wounds or dental caries. Continue IV Vanco, Zosyn. Infectious disease and oncology consulted Qualifiers: Laterality: bilateral Lung location: lower lobe of lung Qualified Code(s) : J18.9 - Pneumonia, unspecified organism (2) Sepsis Current Visit: Yes Status: Acute Assessment and plan: with leukocytosis, fever, and tachycardia; secondary to community-acquired pneumonia. Blood cultures and lactic negative. Initial chest x-ray was negative , chest CT showed new bilateral pleural effusions with adjacent lung consolidation. Initially with Levaquin however she developed a fever and WBC increased and ATB broadened to Vanco, Zosyn. Repeat lactic acid 3.1 which normalized with IV fluids. Blood cultures, urinary antigens, respiratory PCR, UA negative. Had increase in WBC 11/09; panculture ordered. Continue IV Vanco , Zosyn. Qualifiers: Sepsis type: sepsis due to unspecified organism Qualified Code(s): A41.9 - Sepsis, unspecified organism (3) Lung cancer Current Visit: No Status: Chronic Assessment and plan: per hx. 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 Follows with Dr. Anderson. Holding chemotherapy. Oncology consulted Qualifiers: Laterality: right Lung location: upper lobe of lung Qualified Code(s): C34.11 - Malignant neoplasm of upper lobe, right bronchus or lung (4) ADDIS (acute kidney injury) Current Visit: Yes Status: Acute Assessment and plan: Cr 1.5 on admission; baseline normal. Suspect secondary to poor by mouth intake and sepsis. Renal function normalized with IV fluids. Avoid nephrotoxic agents as possible. Monitor repeat renal function (5) Fall Current Visit: Yes Status: Acute Assessment and plan: with chronic numbness to bilateral lower extremities with generalized weakness and fatigue due to chemotherapy. Evaluated by PT/OT who is recommending SNF. Consult rn social services on Friday for discharge planning Qualifiers: Encounter type: initial encounter Qualified Code(s): W19.XXXA - Unspecified fall, initial encounter (6) Anemia Current Visit: Yes Status: Acute Assessment and plan: secondary to chemotherapy and chronic disease. No active bleeding. Hgb 7.8 on . Suspect multifactorial with chemotherapy dilutional value and possible nic from chemotherapy. Monitor H&H, transfuse for Hgb less than 7 Qualifiers: Anemia type: other cause Other causes of anemia: antineoplastic chemotherapy Qualified Code(s): D64.81 - Anemia due to antineoplastic chemotherapy; T45.1X5A - Adverse effect of antineoplastic and immunosuppressive drugs, initial encounter; T45.1X5A - Adverse effect of antineoplastic and immunosuppressive drugs, initial encounter (7) Hypocalcemia Current Visit: Yes Status: Acute Assessment and plan: Ca 6.9, albumin 2.1. Corrected calcium 8.2. Give one-time dose IV calcium gluconate. Cont PO calcium limits. Repeat Ca 7.3 (8) Hypokalemia Current Visit: Yes Status: Resolved Assessment and plan: In the setting of IV Lasix. Replace PRN. Check Mg (9) DVT prophylaxis Current Visit: Yes Status: Acute Assessment and plan: SCds with anemia - Subjective Interval history: Seen and examined at bedside. No acute changes and assessment to report. Says she feels about the same, maybe a little bit better from yesterday's exam. She thinks she may have had fever overnight. No chest pain or shortness of breath. - Constitutional Vitals: Temp Pulse Resp BP Pulse Ox 99.0 F 102 16 153/77 95 11/10/17 11:15 11/10/17 11:15 11/10/17 11:15 11/10/17 11:15 11/10/17 11:15 General appearance: Present: cooperative, A&O X 3, pleasant, no acute distress, obese, answers questions appropriately - Head Head exam: Present: atraumatic, normocephalic - Eye Eye exam: Present: PERRL, conjuntiva pink, sclera anicteric Pupils: Present: PERRL - Neck Neck exam general surgery: Present: supple, trachea midline. Absent: lymphadenopathy - Respiratory Respiratory exam: Present: CTAB. Absent: accessory muscle use, rales, rhonchi, wheezes - Cardiovascular Cardiovascular exam: Present: RRR, +S1, +S2. Absent: diastolic murmur, gallop, rubs, systolic murmur - GI/Abdominal GI/Abdominal exam: Present: normal bowel sounds, soft, no peritoneal signs. Absent: distended, tenderness - Extremities Exam Extremities exam: Present: warm, radial pulses palpable and symmetrical. Absent : calf tenderness, cyanotic, pedal edema - Neurological Exam Neurological exam: Present: CN II-XII intact, oriented X3, no focal deficits. Absent: pronater drift, facial droop, speech deficit - Skin Skin exam: Present: dry, intact Internal Medicine: Result - Labs CBC & Chem 7: 11/10/17 03:25 11/10/17 03:35 Labs: Short CBC 11/10/17 Range/Units 03:25 WBC 27.9 H (4.3-11.1) K/mcL Hgb 8.3 L (11.5-15.4) g/dL Hct 26.5 L (35.3-44.9) % Plt Count 423 H (140-400) K/mcL BMP 11/10/17 03:35 Sodium 139 Potassium 3.1 L Chloride 102 Carbon Dioxide 28 BUN 14 Creatinine 0.80 Glucose 164 H Calcium 7.3 L Liver Function 11/10/17 Range/Units 03:35 Total Bilirubin 0.6 (0.3-1.0) mg/dL AST 17 (13-39) Units/L ALT 21 (7-52) Units/L Alkaline Phosphatase 87 (34-104) Units/L Albumin 2.0 L (3.5-5.7) g/dL Urine 11/09/17 Range/Units 23:30 Urine Color Yellow (Yellow) Urine Clarity Turbid A (Clear) Urine pH 6.0 (5.0-8.0) pH Units Ur Specific [place] 1.027 H (1.010-1.025) Urine Protein 100 H (Neg-Trace) mg/dL Urine Glucose (UA) Normal (Normal) mg/dL - ABG Interpretation ABG results: PT/INR, D-dimer PT 16.7 Seconds (9.4-12.1) H 11/07/17 10:27 - Impressions Impressions Chest CTA 11/09/17 11:01 IMPRESSION: 1. No evidence of pulmonary embolic disease. 2. Increased bilateral pleural effusions with bibasilar volume loss. No acute pulmonary infiltrate. 3. Redemonstration of focal opacification with volume loss in the right upper lobe, presumably post treatment related. 4. 2.1 cm right thyroid nodule. This is increased from CT 03/12/2015 where it measured 1.1 cm. Nonemergent ultrasound correlation recommended if not previously performed. D/ / 11/09/2017 23:19:01 [facility]il[facility] Interpreting Provider: Edilson Steven MD - VTE Documentation of Mechanical Device: Graduated compression elastic hosiery Consult Discharge Plan - Plan Referrals: Jeffery Anderson MD [Partnered Physician] - 11/21/17 1:40 pm Swati Rios DO [Primary Care Provider] -
[2017-11-11] MEDS: Ipratropium/Albuterol Neb 3 ML IH SCH ×6 (03:43→23:11)
[2017-11-11 06:34] LABS: Hemoglobin 8.2 g/dL (11.5-15.4)
[2017-11-11 06:35] LABS: Hematocrit 26.6 % (35.3-44.9); Mean Corpuscular HGB Conc 30.8 g/dL (31.6-35.5); Mean Corpuscular Hemoglobin 26.1 pg (28.0-33.3); Mean Corpuscular Volume 84.7 fL (83.0-100.0); Mean Platelet Volume 9.4 fL (9.4-12.4); Platelet Count 416 K/mcL (140-400); Red Blood Count 3.14 M/mcL (3.82-4.97); Red Cell Distribution Width 16.5 % (11.5-14.5)
[2017-11-11 06:51] LABS: Magnesium 1.6 mg/dL (1.6-2.6)
[2017-11-11] MEDS: Insulin LISPRO 300 UNITS/3 ML VIAL SQ SCH ×4 (08:06→21:36)
[2017-11-11] MEDS: Ascorbic Acid 500 MG TABLET PO SCH (08:07)
[2017-11-11] MEDS: Multivitamin Liquid 15 ML UDC PO SCH (08:07)
[2017-11-11] MEDS: Cholecalciferol (D-3) 1,000 UNIT TABLET PO SCH (08:07)
[2017-11-11] MEDS: Aspirin Enteric Coated 81 MG Tablet PO SCH (08:07)
[2017-11-11] MEDS: Furosemide 20 MG/2 ML VIAL IVP SCH ×2 (08:08→21:33)
--- NOTE | 2017-11-11 09:10 | Infectious Disease Progress No ---
Date of Encounter: 11/11/17 Time of Encounter: 09:08 - Assessment and Plan (1) Sepsis Current Visit: Yes Status: Acute worsening leukocytosis (32.5>27.9) tachycardic temp of 100.3 yesterday afternoon. afebirle thorughout the night. Urine culture grew yeast: urine in tobar is clear with white soft sediment blood cultures, urine legionella antigen and streptococcus pneumoniae antigen engative RIP negative CT abdomen pelvis: perinephric stranding, stable moerate b/l pleural effusions, bladder wall thickening, progressive right hemipelvic metastatic disease. yesterday all antibiotic were stopped due to unclear infectious origin. patients sepsis 2nd to yeast UTI Qualifiers: Sepsis type: sepsis due to unspecified organism Qualified Code(s): A41.9 - Sepsis, unspecified organism (2) Pneumonia Current Visit: Yes Status: Acute reports cough,productive sputum. denies sob CT chest shows b/l pleural effusion ateletasis vs pna RIP negative Blood cultures negative urine legionella and pneumococcal antigen negative currently not on antibiotics. not requiring O2 supplementation. Lung exam: b/l expiratory wheezing plan: continue duonebs. PNA less likely in this patient as she is not requiring O2 supplementation, no sign of respiratory distress. nonspecific sputum production that is chronic. Qualifiers: Pneumonia type: due to unspecified organism Laterality: bilateral Lung location: lower lobe of lung Qualified Code(s): J18.9 - Pneumonia, unspecified organism (3) ADDIS (acute kidney injury) Current Visit: Yes Status: Resolved (4) Fall Current Visit: Yes Status: Acute Qualifiers: Encounter type: initial encounter Qualified Code(s): W19.XXXA - Unspecified fall, initial encounter (5) UTI (urinary tract infection) Current Visit: Yes Status: Acute causative organism johnathon and bacteria ( unable to isolate the bacteria since agar was overwhelmed by yeast and unable to isolate bacterial colonies) restarted zosyn added diflucan pt remains asymptomatic (6) Pyelonephritis Current Visit: Yes Status: Acute no CVA tenderness on exam CT findings suggestive of it plus the Sepsis like picture (3 sirs criteria) will treat with zosyn and fluconazole dose adjust based on creatinine clearance (around 40) (7) Candiduria Current Visit: Yes Status: Acute will treat since we have no other source diflucan 200mg daily duration of treatment depends on clinical picture (8) Diabetes mellitus Current Visit: Yes Status: Chronic Qualifiers: Diabetes mellitus type: type 2 Diabetes mellitus complication status: with unspecified complications Diabetes mellitus intermediate accountant insulin use: without alf use Qualified Code(s): E11.8 - Type 2 diabetes mellitus with unspecified complications (9) Lung cancer Current Visit: Yes Status: Chronic Qualifiers: Laterality: right Lung location: upper lobe of lung Qualified Code(s): C34.11 - Malignant neoplasm of upper lobe, right bronchus or lung - Subjective Interval history: Patient states she has no complaints in the morning. She denies chills. Has a productive cough. Denies sob, chest pain, abdominal pain, LE edema. Yesterday at 5PM patient had an temp of 100.3. Patient has a tobar catheter in place since admission due to urinary retention. She has not had one in the past. There is clear urine with some sediment in the tobar line. Infect Dis PN-Objective Data - Labs CBC & Chem 7: 11/11/17 06:19 11/11/17 06:19 Labs: Laboratory Results - last 24 hr 11/10/17 11/10/17 11/10/17 08:14 11:59 14:55 WBC RBC Hgb Hct MCV MCH MCHC RDW Plt Count MPV POC Glucose 184 H 239 H Magnesium Vancomycin Trough 20.5 H* 11/10/17 11/10/17 11/11/17 17:08 20:26 06:19 WBC 32.5 H* RBC 3.14 L Hgb 8.2 L Hct 26.6 L MCV 84.7 MCH 26.1 L MCHC 30.8 L RDW 16.5 H Plt Count 416 H MPV 9.4 POC Glucose 220 H 209 H Magnesium Vancomycin Trough 11/11/17 06:19 WBC RBC Hgb Hct MCV MCH MCHC RDW Plt Count MPV POC Glucose Magnesium 1.6 Vancomycin Trough Cultures: Cultures 11/05/17 11:24 Blood Culture - Final Peripheral Venipuncture No growth. 11/05/17 11:24 Blood Culture - Final Peripheral Venipuncture No growth. 11/09/17 10:26 Blood Culture - Preliminary Peripheral Venipuncture No growth. 11/09/17 23:30 Urine Culture - Preliminary Urine,Clean Catch Yeast Species 11/08/17 11:20 Legionella Antigen - Final Urine,Catheterized Streptococcus pneumoniae Antigen (M - Final 11/07/17 12:30 Legionella Antigen - Final Urine,Clean Catch Streptococcus pneumoniae Antigen (M - Final Serology 11/09/17 11/08/17 11/05/17 Range/Units 23:30 16:11 13:37 Urine Color Yellow Yellow (Yellow) Urine Clarity Turbid A Cloudy A (Clear) Urine pH 6.0 6.5 (5.0-8.0) pH Units Ur Specific [place] 1.027 H 1.024 (1.010-1.025) Urine Protein 100 H 100 H (Neg-Trace) mg/dL Urine Glucose (UA) Normal Normal (Normal) mg/dL Urine Ketones Negative Negative (Negative) mg/dL Urine Blood Large H Negative (Negative) Urine Nitrite Negative Negative (Negative) Urine Bilirubin Negative Negative (Negative) Urine Urobilinogen Normal Normal (Normal) mg/dL Ur Leukocyte Esterase Large H Negative (Negative) Urine Microscopic RBC 50-100 H 0-3 (0-3) per hpf Urine Microscopic WBC TNTC H 5-15 H (0-3) per hpf Ur Squamous Epith Cells Few Many H (None-Few) per lpf Urine Bacteria Many H None Seen (None-Few) per hpf Hyaline Casts None Seen (None-Few) per lpf Urine Yeast Many H (None Seen) per hpf Ur Oval Fat Bodies Present A (Not Present) Ur Culture Indicated? YES A NO (NO) Chlamy pneumoniae PCR Not Detected (Not Detect) Adenovirus (PCR) Not Detected (Not Detect) B. pertussis DNA (PCR) Not Detected (Not Detect) B.parapertussis DNA PCR Not Detected (Not Detect) Coronavirus OC43 (PCR) Not Detected (Not Detect) Coronavirus HKU1 (PCR) Not Detected (Not Detect) Coronavirus 229E (PCR) Not Detected (Not Detect) Coronavirus NL63 (PCR) Not Detected (Not Detect) Human Metapneumovir PCR Not Detected (Not Detect) Influenza A (H1) PCR Not Detected (Not Detect) Influ A (H1N1/09) PCR Not Detected (Not Detect) Influenza A (H3) PCR Not Detected (Not Detect) Influenza A Untype (PCR) Not Detected (Not Detect) Influenza Type B (PCR) Not Detected (Not Detect) M.pneumoniae DNA (PCR) Not Detected (Not Detect) Parainfluenza 1 (PCR) Not Detected (Not Detect) Parainfluenza 2 (PCR) Not Detected (Not Detect) Parainfluenza 3 (PCR) Not Detected (Not Detect) Parainfluenza 4 (PCR) Not Detected (Not Detect) RSV (PCR) Not Detected (Not Detect) Entero/Rhino (PCR) Not Detected (Not Detect) - Impressions Impressions Abdomen/Pelvis CT 11/10/17 15:00 IMPRESSION: 1. Stable moderate bilateral pleural effusions and lower lobe atelectasis. 2. Bilateral retained contrast seen within the kidneys with a appearance that can be seen in bilateral pyelonephritis. No evidence of an abscess. 3. Progressive right hemipelvic metastatic disease with extraosseous infiltrative soft tissue component. No new pathologic fracture. D/ / 11/10/2017 16:14:37 Gavin Zimmerman MD / [facility] Interpreting Provider: Gavin Zimmerman MD Exam - Constitutional Vitals: Temp Pulse Resp BP Pulse Ox 98.2 F 116 16 153/83 99 11/11/17 08:01 11/11/17 08:01 11/11/17 08:08 11/11/17 08:01 11/11/17 08:08 General appearance: cooperative, obese, no febrile - Eye Eye exam: Present: EOMI. Absent: scleral icterus - Respiratory Respiratory exam: Present: wheezes (expiratory b/l ). Absent: accessory muscle use, respiratory distress - Cardiovascular Cardiovascular exam: Present: +S1, +S2, tachycardia - GI/Abdominal GI/Abdominal exam: Present: normal bowel sounds, soft. Absent: distended, tenderness - Extremities Exam Extremities exam: Present: pedal edema (2+ b/l ) - Neurological Exam Neurological exam: Present: alert, oriented X3 - Skin Skin exam: Present: intact, warm - VTE Documentation of Mechanical Device: Graduated compression elastic hosiery Consult Discharge Plan - Plan Referrals: Jeffery Anderson MD [Partnered Physician] - 11/21/17 1:40 pm Swati Rios DO [Primary Care Provider] - - Attending Attestation I examined this patient and my medical decision-making was reviewed with the Resident Physician. I agree with the documented findings, disposition and treatment plan as described except to the extent set forth below.
[2017-11-11 10:48] LABS: Alanine Aminotransferase 18 Units/L (7-52); Albumin 2.2 g/dL (3.5-5.7); Albumin/Globulin Ratio 0.8 (1.1-2.2); Alkaline Phosphatase 80 Units/L (34-104); Aspartate Amino Transferase 16 Units/L (13-39); BUN/Creatinine Ratio 18 (6-26); Bilirubin,Total 0.5 mg/dL (0.3-1.0); Blood Urea Nitrogen 17 mg/dL (8-23); Calcium 7.9 mg/dL (8.6-10.3); Carbon Dioxide 26 mEq/L (23-29); Chloride 105 mEq/L (98-107); Globulin 2.9 g/dL (2.4-3.5); Glucose 157 mg/dL (70-105); Osmolality,Calculated 299 (280-300); Potassium 3.4 mEq/L (3.5-5.1); Sodium 142 mEq/L (136-145); Total Protein 5.1 g/dL (6.4-8.9); eGFR For African Americans > 60 (> 60); eGFR For Non-African Americans 56 (> 60)
[2017-11-11 10:55] LABS: Basophils # 0.1 K/mcL (0.0-0.2); Basophils % 0.2 %; Eosinophils # 0.1 K/mcL (0.0-0.6); Eosinophils % 0.3 %; Immature Granulocytes % 1.2 % (0-4); Lymphocytes # 1.3 K/mcL (0.6-4.6); Monocytes % 4.5 %; Nucleated Red Blood Cells 0.1 /100 WBC (0); Segmented Neutrophils % 89.8 %
[2017-11-11 11:10] LABS: Monocytes # 1.5 K/mcL (0.0-1.3); Neutrophils # 29.2 K/mcL (1.6-8.9)
--- NOTE | 2017-11-11 14:30 | Palliative - Consult Note ---
<Yahir Grove - Last Filed: 11/11/17 14:30> Date of Encounter: 11/11/17 Time of Encounter: 14:15 - Assessment and Plan (1) Goals of care, counseling/discussion Current Visit: Yes Status: Acute Assessment and plan: The patient's current code status is DNR comfort care and patient has confirmed it. She is currently not considering any Hospice at this time, but she states that she does not feel comfortable with returning home alone. She would like to discuss possible assisted living or placement in the fci after her treatment at [facility] for her UTI and rehab. She stated that she prefers to be at [facility], but she understands that [facility] has no bed at this time. After her treatment for her UTI, she will continue to follow up with her oncologist to discuss further treatment and plan. Palliative team will continue to follow. (2) Pneumonia Current Visit: Yes Status: Acute Assessment and plan: Antibiotics treatment per hospitalist team. Qualifiers: Pneumonia type: due to unspecified organism Laterality: bilateral Lung location: lower lobe of lung Qualified Code(s): J18.9 - Pneumonia, unspecified organism (3) Bone metastasis Current Visit: Yes Status: Chronic Assessment and plan: Per history, patient has lung cancer with metastasis to the right iliac wing and sacraum. Patient follows with Dr. Anderson. Plan per oncology and hospitalist team. (4) Lung cancer Current Visit: Yes Status: Chronic Assessment and plan: Per history, patient has metastatic lung cancer. Patient follows with Dr. Anderson. Qualifiers: Laterality: right Lung location: upper lobe of lung Qualified Code(s): C34.11 - Malignant neoplasm of upper lobe, right bronchus or lung Palliative-CN HPI - Data of Consult Requesting Physician: Cecilia Miner CNP Primary Care Provider: Swati Rios DO - Consult Narrative History of present illness: Ms. Wasserman is a 87 year old female with a past medical history of pneumonia and metastatic lung cancer who was admitted to hospital for lower extremity weakness and numbness, fall, pneumonia, acute kidney injury, and leukocytosis. Patient fell at home and was down for approximately 2 days before her daughter found her and brought her to [facility] ER. Patient admits she feels significantly better compared to admission. She admits she still has right hip pain, constipation, and bilateral leg swelling, numbness, and weakness but it is not different from her baseline. She denies any pain, fever, headaches, vision changes, chest pain, difficulty breathing, shortness of breath, abdominal pain, any new numbness and tingling, difficulty urinating, blood in urine, or any blood in stool. Palliative team was consulted to discuss goals of care with the patient. Patient was seen and examined at bedside. There are no family at bedside on exam. Patient is alert and orientedx3. Patient confirmed her code status of DNR-Comfort Care. The patient states that she understands that she will have to go to [facility] for her treatment for her UTI. She states that she is not comfortable with returning home, since she lives alone and feels like she cannot care for herself at this time. She states that she would like to be considered for assisted living or fci care after her treatment for her UTI. She currently does not want hospice at this time. Patient has no other concerns at this time. CC: Cecilia Miner, VAUGHN Past Med Surg Social Fam HX - Past Medical History Medical history: cancer, diabetes, hyperlipidemia, hypertension, other Psychiatric history: no psych history - Past Surgical History Surgical History: cancer surgery, knee replacement - Social History Smoking Status: Never smoker Smokeless Tobacco Status: No Alcohol use: none Drug use: none - Family History Mother Living Status: Age at : 80 Cause of : natural causes Hx Family Cardiac Disorders: Yes (cabg, heart failure) Hx Family Respiratory Disorders: Yes Hx Family Psychosocial Disorders: Yes (dementia) Father Living Status: Age at : 67 Cause of : colon cancer Hx Family Cancer: Yes (colon) Medications and Allergies Calcium Carbonate/Vitamin D3 [Calcium 600 + D Tablet] 1 each PO DAILY 05/22/15 [ History] Glimepiride [Amaryl] 2 mg PO DAILY 05/22/15 [History] Gluc HCl/Csa/Collagen/Hyalur A [Glucosamine Chondroitin Cap] 1 each PO DAILY 01/01 [History] Lisinopril/Hydrochlorothiazide [Lisinopril-Hctz 20-12.5 mg Tab] 1 each PO BID [History] Metoprolol Tartrate 50 mg PO BID 05/22/15 [History] Multivitamin/Iron/Folic Acid [Centrum Complete Multivit Tab] 1 each PO DAILY 01/01 [History] Simvastatin [Zocor] 20 mg PO HS 05/22/15 [History] LORazepam [Ativan] 0.5 mg PO Q8H PRN #24 tablet 12/10/16 [Rx] Polyethylene Glycol 3350 [MiraLAX] 17 gm PO DAILY PRN 12/10/16 [History] Sertraline [Zoloft] 25 mg PO DAILY #30 tablet 12/10/16 [Rx] Cholecalciferol (D-3) [Vitamin D] 1,000 unit PO BID 02/07/17 [History] Morphine Immed Rel [Morphine Sulfate] 15 mg PO Q2H PRN #30 tab 03/21/17 [Rx] Ascorbic Acid [Vitamin C] 1,000 mg PO DAILY 08/21/17 [History] HYDROcodone/Acet 5/325 mg [Means 5-325 mg] 1 tab PO Q6H PRN #60 tab 09/03/17 [Rx ] Docusate [Colace] 200 mg PO BID #120 capsule 10/07/17 [Rx] Lactulose 20 gm PO QID PRN #240 ml 10/07/17 [Rx] Crizotinib [Xalkori] 250 mg PO BID #60 capsule 10/30/17 [Rx] Aspirin Enteric Coated [Aspirin EC] 81 mg PO DAILY 11/03/17 [History] Dexamethasone [Decadron] 4 mg PO DAILY 11/03/17 [History] Loperamide [Imodium] 2 mg PO PER PKG DI PRN 11/03/17 [History] Omeprazole [PriLOSEC] 20 mg PO DAILY 11/03/17 [History] 3 Allergy/AdvReac Type Severity Reaction Status Date / Time Sulfa (Sulfonamide Allergy Unknown Fainting Verified 10/07/17 11:18 Antibiotics) Review of systems: As per HPI Palliative Care-Exam - Constitutional Vitals: Temp Pulse Resp BP Pulse Ox 97.9 F 112 16 158/78 94 11/11/17 12:42 11/11/17 12:42 11/11/17 12:42 11/11/17 12:42 11/11/17 12:42 General appearance: Present: cooperative, no acute distress, obese. Absent: febrile - Head Head Exam: Present: atraumatic, normal inspection - Eye Eye exam: Present: EOMI, normal appearance, PERRL. Absent: nystagmus, periorbital swelling Pupils: Present: PERRL - ENT ENT exam: Present: mucous membranes moist, normal oropharynx - Neck Neck exam: Present: normal inspection. Absent: lymphadenopathy, tenderness - Respiratory Respiratory exam: Present: wheezes (Expiratory wheezes heard on exam more on the right side than the left. ). Absent: accessory muscle use, chest wall tenderness, rales, respiratory distress, rhonchi - Expanded Respiratory Exam Location: wheezes: Left, Right, Upper, Lower (Right side more than the left) - Cardiovascular Cardiovascular exam: Present: RRR, +S1, +S2. Absent: bradycardia, diastolic murmur, gallop, rubs, systolic murmur, tachycardia - GI/Abdominal Exam GI/Abdominal exam: Present: soft. Absent: distended, guarding, tenderness - Extremities Exam Extremities exam: Present: pedal edema (bilateral pedal edema). Absent: calf tenderness, full ROM, joint swelling, tenderness Additional comments: Bilateral lower extremities have swelling and +2 pitting edema. Distal pulses are intact and +2/4. - Back Exam Back exam: Present: normal inspection. Absent: CVA tenderness (L), CVA tenderness (R), paraspinal tenderness, vertebral tenderness - Neurological Exam Neurological exam: Present: alert, CN II-XII intact. Absent: altered, motor sensory deficit - Expanded Neurological Exam Neurological exam expanded: Present: protecting the airway Patient oriented to: Present: person, place, time Speech: Present: fluid speech. Absent: slurred, stutter - Skin Skin exam: Present: dry, intact, warm. Absent: abrasion, diaphoretic Internal Medicine - CN: Reslt - Labs CBC & Chem 7: 11/11/17 06:19 11/11/17 06:19 Labs: Short CBC 11/11/17 Range/Units 06:19 WBC 32.5 H* (4.3-11.1) K/mcL Hgb 8.2 L (11.5-15.4) g/dL Hct 26.6 L (35.3-44.9) % Plt Count 416 H (140-400) K/mcL Neutrophils # 29.2 H (1.6-8.9) K/mcL BMP 11/11/17 06:19 Sodium 142 Potassium 3.4 L Chloride 105 Carbon Dioxide 26 BUN 17 Creatinine 0.94 Glucose 157 H Calcium 7.9 L Liver Function 11/11/17 Range/Units 06:19 Total Bilirubin 0.5 (0.3-1.0) mg/dL AST 16 (13-39) Units/L ALT 18 (7-52) Units/L Alkaline Phosphatase 80 (34-104) Units/L Albumin 2.2 L (3.5-5.7) g/dL - ABG Interpretation ABG results: PT/INR, D-dimer PT 16.7 Seconds (9.4-12.1) H 11/07/17 10:27 - Impressions Impressions Abdomen/Pelvis CT 11/10/17 15:00 IMPRESSION: 1. Stable moderate bilateral pleural effusions and lower lobe atelectasis. 2. Bilateral retained contrast seen within the kidneys with a appearance that can be seen in bilateral pyelonephritis. No evidence of an abscess. 3. Progressive right hemipelvic metastatic disease with extraosseous infiltrative soft tissue component. No new pathologic fracture. D/ / 11/10/2017 16:14:37 Gavin Zimmerman MD / chaitanya Interpreting Provider: Gavin Zimmerman MD Consult Discharge Plan - Plan Referrals: Jeffery Anderson MD [Partnered Physician] - 11/21/17 1:40 pm Swati Rios DO [Primary Care Provider] - Palliative Quality Palliative Quality: Screen for Code Status: Yes, Screen for Goals of Care: Yes, Screen for Pain: Yes, If Pain Regimen Started, Initiate Bowel Regimen: NA, Screen for Nausea/Vomitting: Yes <Antonio Rm - Last Filed: 11/11/17 15:30> Date of Encounter: 11/11/17 Palliative-CN HPI - Data of Consult Requesting Physician: Cecilia Miner CNP Primary Care Provider: Swati Rios DO - Consult Narrative History of present illness: Ms. Wasserman is a 87 year old female CC: Cecilia Miner CNP Palliative Care-Exam - Constitutional Vitals: Temp Pulse Resp BP Pulse Ox 97.9 F 112 16 158/78 94 11/11/17 12:42 01/23/18 12:42 11/11/17 12:42 11/11/17 12:42 11/11/17 12:42 Internal Medicine - CN: Reslt - Labs CBC & Chem 7: 11/11/17 06:19 11/11/17 06:19 Labs: Short CBC 11/11/17 Range/Units 06:19 WBC 32.5 H* (4.3-11.1) K/mcL Hgb 8.2 L (11.5-15.4) g/dL Hct 26.6 L (35.3-44.9) % Plt Count 416 H (140-400) K/mcL Neutrophils # 29.2 H (1.6-8.9) K/mcL BMP 11/11/17 06:19 Sodium 142 Potassium 3.4 L Chloride 105 Carbon Dioxide 26 BUN 17 Creatinine 0.94 Glucose 157 H Calcium 7.9 L Liver Function 11/11/17 Range/Units 06:19 Total Bilirubin 0.5 (0.3-1.0) mg/dL AST 16 (13-39) Units/L ALT 18 (7-52) Units/L Alkaline Phosphatase 80 (34-104) Units/L Albumin 2.2 L (3.5-5.7) g/dL - ABG Interpretation ABG results: PT/INR, D-dimer PT 16.7 Seconds (9.4-12.1) H 11/07/17 10:27 - Impressions Impressions Abdomen/Pelvis CT 11/10/17 15:00 IMPRESSION: 1. Stable moderate bilateral pleural effusions and lower lobe atelectasis. 2. Bilateral retained contrast seen within the kidneys with a appearance that can be seen in bilateral pyelonephritis. No evidence of an abscess. 3. Progressive right hemipelvic metastatic disease with extraosseous infiltrative soft tissue component. No new pathologic fracture. D/ / 11/10/2017 16:14:37 Gavin Zimmerman MD / chaitanya Interpreting Provider: Gavin Zimmerman MD - Attending Attestation I examined this patient and my medical decision-making was reviewed with the Resident Physician. I agree with the documented findings, disposition and treatment plan as described except to the extent set forth below.
[2017-11-11] MEDS: Piperacillin/Tazobactam 3.375 GM/200 ML BAG IVPB SCH (15:41)
[2017-11-11] MEDS: Fluconazole 200 MG/100 ML 200 MG/100 ML BAG IVPB SCH (15:41)
--- NOTE | 2017-11-11 17:12 | Internal Med Progress Note ---
Date of Encounter: 11/11/17 Time of Encounter: 11:00 - Assessment and plan (1) Pyelonephritis, acute Current Visit: Yes Status: Acute Assessment and plan: Symptomatic with fevers and worsening leukocytosis. ABD CT concerning for bilateral pyelonephritis, no evidence of abscess. IV Zosyn restarted. Infectious disease following. (2) UTI (urinary tract infection) Current Visit: Yes Status: Acute Assessment and plan: causative organism johnathon and bacteria. Per ID, unable to isolate the bacteria since agar was overwhelmed by yeast and unable to isolate bacterial colonies. Zosyn restarted and Diflucan added. ID following. Qualifiers: Urinary tract infection type: acute pyelonephritis Qualified Code(s): N10 - Acute pyelonephritis (3) Pneumonia Current Visit: Yes Status: Acute Assessment and plan: chest CT with bilateral pleural effusions with adjacent consolidation concerning for pneumonia. Initially treated with IV Levaquin, azithromycin and Rocephin. WBC increased to 23K and she spiked fever on 11/06. Repeat lactic acid 3.1. She was treated with IV fluids and ATB broadened to Vanco and Zosyn. Lactic acid normalized with IV fluids. Urinary antigens, respiratory PCR and blood cultures negative. Hemodynamically stable, no hypotension. Had transient tachycardia which now is resolved. Completed treatment with IV Vanco and Zosyn. Qualifiers: Pneumonia type: due to unspecified organism Laterality: bilateral Lung location: lower lobe of lung Qualified Code(s): J18.9 - Pneumonia, unspecified organism (4) Sepsis Current Visit: Yes Status: Acute Assessment and plan: with leukocytosis, fever, and tachycardia; secondary to community-acquired pneumonia. Blood cultures and lactic negative. Initial chest x-ray was negative , chest CT showed new bilateral pleural effusions with adjacent lung consolidation. Initially with Levaquin however she developed a fever and WBC increased and ATB broadened to Vanco, Zosyn. Repeat lactic acid 3.1 which normalized with IV fluids. Blood cultures, urinary antigens, respiratory PCR, UA negative. Had increase in WBC 11/09; panculture ordered. Continue IV Vanco , Zosyn. Qualifiers: Sepsis type: sepsis due to unspecified organism Qualified Code(s): A41.9 - Sepsis, unspecified organism (5) Lung cancer Current Visit: Yes Status: Chronic Assessment and plan: per hx. 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 Follows with Dr. Anderson. Holding chemotherapy. Oncology consulted Qualifiers: Laterality: right Lung location: upper lobe of lung Qualified Code(s): C34.11 - Malignant neoplasm of upper lobe, right bronchus or lung (6) ADDIS (acute kidney injury) Current Visit: Yes Status: Resolved Assessment and plan: Cr 1.5 on admission; baseline normal. Suspect secondary to poor by mouth intake and sepsis. Renal function normalized with IV fluids. Avoid nephrotoxic agents as possible. Monitor repeat renal function (7) Fall Current Visit: Yes Status: Acute Assessment and plan: with chronic numbness to bilateral lower extremities with generalized weakness and fatigue due to chemotherapy. Evaluated by PT/OT who is recommending SNF. Consult social worker on Friday for discharge planning Qualifiers: Encounter type: initial encounter Qualified Code(s): W19.XXXA - Unspecified fall, initial encounter (8) Anemia Current Visit: Yes Status: Acute Assessment and plan: secondary to chemotherapy and chronic disease. No active bleeding. Hgb 7.8 on . Suspect multifactorial with chemotherapy dilutional value and possible nic from chemotherapy. Monitor H&H, transfuse for Hgb less than 7. Hgb 8.2 on 11/11 Qualifiers: Anemia type: other cause Other causes of anemia: antineoplastic chemotherapy Qualified Code(s): D64.81 - Anemia due to antineoplastic chemotherapy; T45.1X5A - Adverse effect of antineoplastic and immunosuppressive drugs, initial encounter; T45.1X5A - Adverse effect of antineoplastic and immunosuppressive drugs, initial encounter (9) Hypocalcemia Current Visit: Yes Status: Acute Assessment and plan: Ca 6.9, albumin 2.1. Corrected calcium 8.2. Give one-time dose IV calcium gluconate. Cont PO calcium limits. Repeat Ca 7.3 (10) Hypokalemia Current Visit: Yes Status: Resolved Assessment and plan: In the setting of IV Lasix. Replace PRN. Check Mg (11) DVT prophylaxis Current Visit: Yes Status: Acute Assessment and plan: SCds with anemia - Subjective Interval history: Seen and examined at bedside; says she feels about the same. No changes in assessment to report. No fever or chills, no CP or SOB - Constitutional Vitals: Temp Pulse Resp BP Pulse Ox 98.2 F 109 16 127/56 99 11/11/17 15:34 11/11/17 15:34 11/11/17 16:13 11/11/17 15:34 11/11/17 16:13 General appearance: Present: cooperative, A&O X 3, pleasant, no acute distress, obese, answers questions appropriately - Head Head exam: Present: atraumatic, normocephalic - Eye Eye exam: Present: PERRL, conjuntiva pink, sclera anicteric Pupils: Present: PERRL - Neck Neck exam general surgery: Present: supple, trachea midline. Absent: lymphadenopathy - Respiratory Respiratory exam: Present: CTAB. Absent: accessory muscle use, rales, rhonchi, wheezes - Cardiovascular Cardiovascular exam: Present: RRR, +S1, +S2. Absent: diastolic murmur, gallop, rubs, systolic murmur - GI/Abdominal GI/Abdominal exam: Present: normal bowel sounds, soft, no peritoneal signs. Absent: distended, tenderness - Extremities Exam Extremities exam: Present: pedal edema, warm, radial pulses palpable and symmetrical. Absent: calf tenderness, cyanotic - Neurological Exam Neurological exam: Present: CN II-XII intact, oriented X3, no focal deficits. Absent: pronater drift, facial droop, speech deficit - Skin Skin exam: Present: dry, intact Internal Medicine: Result - Labs CBC & Chem 7: 11/11/17 06:19 11/11/17 06:19 Labs: Short CBC 11/11/17 Range/Units 06:19 WBC 32.5 H* (4.3-11.1) K/mcL Hgb 8.2 L (11.5-15.4) g/dL Hct 26.6 L (35.3-44.9) % Plt Count 416 H (140-400) K/mcL Neutrophils # 29.2 H (1.6-8.9) K/mcL BMP 11/11/17 06:19 Sodium 142 Potassium 3.4 L Chloride 105 Carbon Dioxide 26 BUN 17 Creatinine 0.94 Glucose 157 H Calcium 7.9 L Liver Function 11/11/17 Range/Units 06:19 Total Bilirubin 0.5 (0.3-1.0) mg/dL AST 16 (13-39) Units/L ALT 18 (7-52) Units/L Alkaline Phosphatase 80 (34-104) Units/L Albumin 2.2 L (3.5-5.7) g/dL - ABG Interpretation ABG results: PT/INR, D-dimer PT 16.7 Seconds (9.4-12.1) H 11/07/17 10:27 - Impressions Impressions Abdomen/Pelvis CT 11/10/17 15:00 IMPRESSION: 1. Stable moderate bilateral pleural effusions and lower lobe atelectasis. 2. Bilateral retained contrast seen within the kidneys with a appearance that can be seen in bilateral pyelonephritis. No evidence of an abscess. 3. Progressive right hemipelvic metastatic disease with extraosseous infiltrative soft tissue component. No new pathologic fracture. D/ / 11/10/2017 16:14:37 Gavin Zimmerman MD / chaitanya Interpreting Provider: Gavin Zimmerman MD - VTE Documentation of Mechanical Device: Graduated compression elastic hosiery Consult Discharge Plan - Plan Referrals: Jeffery Anderson MD [Partnered Physician] - 11/21/17 1:40 pm Swati Rios DO [Primary Care Provider] -
[2017-11-11] MEDS: 0.9 % Sodium Chloride 1,000 ML IVC SCH (21:33)
[2017-11-12] MEDS: Piperacillin/Tazobactam 3.375 GM/200 ML BAG IVPB SCH ×4 (01:09→23:30)
[2017-11-12] MEDS: Benzonatate 100 MG CAPSULE PO PRN ×2 (02:11→20:55)
[2017-11-12] MEDS: Ipratropium/Albuterol Neb 3 ML IH SCH ×6 (03:44→23:41)
--- NOTE | 2017-11-12 07:54 | Electrocardiograph Report ---
[place] [id number] Test Date: 2017-11-09 Pat Name: Edda Wasserman Department: 113 Room: 3B23 Gender: F Crust Sorter: LIZZETTE : 1930 Requested By: Cecilia Miner Order Number: [id number] Reading MD: Dilshad Hinkle MD Measurements Intervals [place] Rate: 89 P: [place]: 0 QRS: 2 QRSD: 87 T: 10 QT: 398 QTc: 444 Interpretive Statements SINUS RHYTHM WITH PACS Electronically Signed On 11-12-2017 6:29:06 EST by Dilshad Hinkle MD
[2017-11-12] MEDS: Furosemide 20 MG/2 ML VIAL IVP SCH ×2 (08:57→20:56)
[2017-11-12] MEDS: Insulin LISPRO 300 UNITS/3 ML VIAL SQ SCH ×4 (08:58→20:56)
[2017-11-12] MEDS: Multivitamin Liquid 15 ML UDC PO SCH (08:59)
[2017-11-12] MEDS: Aspirin Enteric Coated 81 MG Tablet PO SCH (08:59)
[2017-11-12] MEDS: Cholecalciferol (D-3) 1,000 UNIT TABLET PO SCH (08:59)
[2017-11-12] MEDS: Ascorbic Acid 500 MG TABLET PO SCH (08:59)
[2017-11-12] MEDS: Fluconazole 200 MG/100 ML 200 MG/100 ML BAG IVPB SCH (09:01)
[2017-11-12] MEDS: 0.9 % Sodium Chloride 1,000 ML IVC SCH ×2 (09:02→13:00)
[2017-11-12 09:15] LABS: Basophils % 0.2 %; Eosinophils % 0.3 %
[2017-11-12 09:16] LABS: Basophils # 0.1 K/mcL (0.0-0.2); Eosinophils # 0.1 K/mcL (0.0-0.6); Hematocrit 27.6 % (35.3-44.9); Hemoglobin 8.2 g/dL (11.5-15.4); Immature Granulocytes % 1.3 % (0-4); Lymphocytes # 1.3 K/mcL (0.6-4.6); Lymphocytes % 4.1 %; Mean Corpuscular HGB Conc 29.7 g/dL (31.6-35.5); Mean Corpuscular Hemoglobin 25.8 pg (28.0-33.3); Mean Corpuscular Volume 86.8 fL (83.0-100.0); Mean Platelet Volume 9.4 fL (9.4-12.4); Monocytes # 1.1 K/mcL (0.0-1.3); Monocytes % 3.3 %; Neutrophils # 28.8 K/mcL (1.6-8.9); Platelet Count 433 K/mcL (140-400); Red Blood Count 3.18 M/mcL (3.82-4.97); Red Cell Distribution Width 16.6 % (11.5-14.5); Segmented Neutrophils % 90.8 %
[2017-11-12 09:17] LABS: Calcium 7.9 mg/dL (8.6-10.3); Carbon Dioxide 23 mEq/L (23-29); Chloride 106 mEq/L (98-107); Potassium 3.4 mEq/L (3.5-5.1); Sodium 142 mEq/L (136-145)
--- NOTE | 2017-11-12 09:20 | Infectious Disease Progress No ---
Date of Encounter: 11/12/17 Time of Encounter: 09:17 - Assessment and Plan (1) Sepsis Current Visit: Yes Status: Acute 3 sirs criteira on admission wbc elevated a 31.7 tachycardic afebrile Urine culture grew yeast blood cultures, urine legionella antigen and streptococcus pneumoniae antigen negative RIP negative CT abdomen pelvis: perinephric stranding, stable moerate b/l pleural effusions, bladder wall thickening, progressive right hemipelvic metastatic disease. Repeat blood cultures pending. patients sepsis 2nd to yeast UTI, pyelonephritis Qualifiers: Sepsis type: sepsis due to unspecified organism Qualified Code(s): A41.9 - Sepsis, unspecified organism (2) Pyelonephritis Current Visit: Yes Status: Acute CT abdomen and pelvis: Perinephric stranding, bladder wall thickening. No CVA tenderness Urinalysis positive for bacteria and yeast. Urine culture grew yeast. Patient on Zosyn 3.375 g every 8H day 2 Patient on Diflucan 200 mg daily day 2 dose adjust based on creatinine clearance (around 40) (3) Candiduria Current Visit: Yes Status: Acute diflucan 200mg daily day 2 duration of treatment depends on clinical picture (4) Pneumonia Current Visit: Yes Status: Ruled-out reports cough,productive sputum. denies sob CT chest shows b/l pleural effusion ateletasis vs pna RIP negative Blood cultures negative urine legionella and pneumococcal antigen negative not requiring O2 supplementation. Lung exam: b/l expiratory wheezing plan: continue duonebs. PNA less likely in this patient as she is not requiring O2 supplementation, no sign of respiratory distress. nonspecific sputum production that is chronic. Continue to monitor her status. Qualifiers: Pneumonia type: due to unspecified organism Laterality: bilateral Lung location: lower lobe of lung Qualified Code(s): J18.9 - Pneumonia, unspecified organism (5) Lung cancer Current Visit: Yes Status: Chronic Qualifiers: Laterality: right Lung location: upper lobe of lung Qualified Code(s): C34.11 - Malignant neoplasm of upper lobe, right bronchus or lung (6) ADDIS (acute kidney injury) Current Visit: Yes Status: Resolved (7) Fall Current Visit: Yes Status: Acute Management as per primary Qualifiers: Encounter type: initial encounter Qualified Code(s): W19.XXXA - Unspecified fall, initial encounter (8) Diabetes mellitus Current Visit: Yes Status: Chronic Management as per primary Qualifiers: Diabetes mellitus type: type 2 Diabetes mellitus complication status: with unspecified complications Diabetes mellitus rodent exterminator insulin use: without fci use Qualified Code(s): E11.8 - Type 2 diabetes mellitus with unspecified complications - Subjective Interval history: No acute events overnight. Patient denies chills, shortness of breath, chest pain, abdominal pain, lower extremity edema. She is tolerating her diet. She has adequate urine production. Infect Dis PN-Objective Data - Labs CBC & Chem 7: 11/12/17 08:59 11/12/17 08:59 Labs: Laboratory Results - last 24 hr 11/08/17 11/11/17 11/11/17 20:02 06:19 06:19 WBC 32.5 H* RBC 3.14 L Hgb 8.2 L Hct 26.6 L MCV 84.7 MCH 26.1 L MCHC 30.8 L RDW 16.5 H Plt Count 416 H MPV 9.4 Immature Gran % 1.2 Seg Neutrophils % 89.8 Lymphocytes % 4.0 Monocytes % 4.5 Eosinophils % 0.3 Basophils % 0.2 Neutrophils # 29.2 H Lymphocytes # 1.3 Monocytes # 1.5 H Eosinophils # 0.1 Basophils # 0.1 Nucleated RBCs/100 WBC 0.1 H Blood Smear Review See Below Sodium Potassium Chloride Carbon Dioxide BUN Creatinine Est GFR ( Amer) Est GFR (Non-Af Amer) BUN/Creatinine Ratio Glucose POC Glucose 182 H Calculated Osmolality Calcium Magnesium Total Bilirubin AST ALT Alkaline Phosphatase Serum Total Protein Albumin Globulin Albumin/Globulin Ratio 11/11/17 11/11/17 11/11/17 06:19 08:03 12:17 WBC RBC Hgb Hct MCV MCH MCHC RDW Plt Count MPV Immature Gran % Seg Neutrophils % Lymphocytes % Monocytes % Eosinophils % Basophils % Neutrophils # Lymphocytes # Monocytes # Eosinophils # Basophils # Nucleated RBCs/100 WBC Blood Smear Review Sodium 142 Potassium 3.4 L Chloride 105 Carbon Dioxide 26 BUN 17 Creatinine 0.94 Est GFR ( Amer) > 60 Est GFR (Non-Af Amer) 56 L BUN/Creatinine Ratio 18 Glucose 157 H POC Glucose 162 H 197 H Calculated Osmolality 299 Calcium 7.9 L Magnesium 1.6 Total Bilirubin 0.5 AST 16 ALT 18 Alkaline Phosphatase 80 Serum Total Protein 5.1 L Albumin 2.2 L Globulin 2.9 Albumin/Globulin Ratio 0.8 L 01/23/18 01/23/18 01/24/18 15:51 20:24 08:59 WBC RBC Hgb Hct MCV MCH MCHC RDW Plt Count MPV Immature Gran % Seg Neutrophils % Lymphocytes % Monocytes % Eosinophils % Basophils % Neutrophils # Lymphocytes # Monocytes # Eosinophils # Basophils # Nucleated RBCs/100 WBC Blood Smear Review Sodium 142 Potassium 3.4 L Chloride 106 Carbon Dioxide 23 BUN Creatinine Est GFR ( Amer) Est GFR (Non-Af Amer) BUN/Creatinine Ratio Glucose POC Glucose 190 H 159 H Calculated Osmolality Calcium 7.9 L Magnesium Total Bilirubin AST ALT Alkaline Phosphatase Serum Total Protein Albumin Globulin Albumin/Globulin Ratio Cultures: Cultures 11/09/17 10:26 Blood Culture - Preliminary Peripheral Venipuncture No growth. 11/09/17 23:30 Urine Culture - Preliminary Urine,Clean Catch Yeast Species 11/05/17 11:24 Blood Culture - Final Peripheral Venipuncture No growth. 11/05/17 11:24 Blood Culture - Final Peripheral Venipuncture No growth. 11/09/17 10:26 Blood Culture - Preliminary Peripheral Venipuncture No growth. 11/08/17 11:20 Legionella Antigen - Final Urine,Catheterized Streptococcus pneumoniae Antigen (M - Final 11/07/17 12:30 Legionella Antigen - Final Urine,Clean Catch Streptococcus pneumoniae Antigen (M - Final Serology 11/09/17 11/08/17 11/05/17 Range/Units 23:30 16:11 13:37 Urine Color Yellow Yellow (Yellow) Urine Clarity Turbid A Cloudy A (Clear) Urine pH 6.0 6.5 (5.0-8.0) pH Units Ur Specific [place] 1.027 H 1.024 (1.010-1.025) Urine Protein 100 H 100 H (Neg-Trace) mg/dL Urine Glucose (UA) Normal Normal (Normal) mg/dL Urine Ketones Negative Negative (Negative) mg/dL Urine Blood Large H Negative (Negative) Urine Nitrite Negative Negative (Negative) Urine Bilirubin Negative Negative (Negative) Urine Urobilinogen Normal Normal (Normal) mg/dL Ur Leukocyte Esterase Large H Negative (Negative) Urine Microscopic RBC 50-100 H 0-3 (0-3) per hpf Urine Microscopic WBC TNTC H 5-15 H (0-3) per hpf Ur Squamous Epith Cells Few Many H (None-Few) per lpf Urine Bacteria Many H None Seen (None-Few) per hpf Hyaline Casts None Seen (None-Few) per lpf Urine Yeast Many H (None Seen) per hpf Ur Oval Fat Bodies Present A (Not Present) Ur Culture Indicated? YES A NO (NO) Chlamy pneumoniae PCR Not Detected (Not Detect) Adenovirus (PCR) Not Detected (Not Detect) B. pertussis DNA (PCR) Not Detected (Not Detect) B.parapertussis DNA PCR Not Detected (Not Detect) Coronavirus OC43 (PCR) Not Detected (Not Detect) Coronavirus HKU1 (PCR) Not Detected (Not Detect) Coronavirus 229E (PCR) Not Detected (Not Detect) Coronavirus NL63 (PCR) Not Detected (Not Detect) Human Metapneumovir PCR Not Detected (Not Detect) Influenza A (H1) PCR Not Detected (Not Detect) Influ A (H1N1/09) PCR Not Detected (Not Detect) Influenza A (H3) PCR Not Detected (Not Detect) Influenza A Untype (PCR) Not Detected (Not Detect) Influenza Type B (PCR) Not Detected (Not Detect) M.pneumoniae DNA (PCR) Not Detected (Not Detect) Parainfluenza 1 (PCR) Not Detected (Not Detect) Parainfluenza 2 (PCR) Not Detected (Not Detect) Parainfluenza 3 (PCR) Not Detected (Not Detect) Parainfluenza 4 (PCR) Not Detected (Not Detect) RSV (PCR) Not Detected (Not Detect) Entero/Rhino (PCR) Not Detected (Not Detect) Exam - Constitutional Vitals: Temp Pulse Resp BP Pulse Ox 98.2 F 108 18 189/77 90 11/12/17 07:26 11/12/17 07:26 11/12/17 07:26 11/12/17 07:26 11/12/17 07:26 - Additional findings Additional findings: General: Pleasant elderly female without distress. Obese. Heart: Sinus tachycardia Lungs: Diffuse expiratory wheezing bilaterally. Abdomen: Soft nontender, nondistended positive bowel sounds Skin: warm and dry Extremities: Bilateral 2+ pitting edema Neuro: Alert oriented 3 Vascular: Pedal and radial pulses 2 out of 4 - VTE Documentation of Mechanical Device: Graduated compression elastic hosiery Consult Discharge Plan - Plan Referrals: Jeffery Anderson MD [Partnered Physician] - 11/21/17 1:40 pm Swati Rios DO [Primary Care Provider] - - Attending Attestation I examined this patient and my medical decision-making was reviewed with the Resident Physician. I agree with the documented findings, disposition and treatment plan as described except to the extent set forth below.
[2017-11-12 09:22] LABS: BUN/Creatinine Ratio 24 (6-26); Blood Urea Nitrogen 19 mg/dL (8-23); Glucose 162 mg/dL (70-105); Osmolality,Calculated 300 (280-300); eGFR For African Americans > 60 (> 60); eGFR For Non-African Americans > 60 (> 60)
[2017-11-12 09:39] LABS: Platelet Estimate Normal (Normal)
[2017-11-12] MEDS ORDERED: Lidocaine -MPF 1% 5 ML AMPUL INFILT ONE (10:57)
--- NOTE | 2017-11-12 20:23 | Internal Med Progress Note ---
Date of Encounter: 11/12/17 Time of Encounter: 11:30 - Assessment and plan (1) Pyelonephritis, acute Current Visit: Yes Status: Acute Assessment and plan: Symptomatic with fevers and worsening leukocytosis. ABD CT concerning for bilateral pyelonephritis, no evidence of abscess. No CVA tenderness. UA with yeast. Cont IV zosyn, diflucan. ID following (2) UTI (urinary tract infection) Current Visit: Yes Status: Acute Assessment and plan: causative organism johnathon and bacteria. Cont Diflucan. ID following. Qualifiers: Urinary tract infection type: acute pyelonephritis Qualified Code(s): N10 - Acute pyelonephritis (3) Pneumonia Current Visit: Yes Status: Ruled-out Assessment and plan: chest CT with bilateral pleural effusions with adjacent consolidation concerning for pneumonia. Initially treated with IV Levaquin, azithromycin and Rocephin. WBC increased to 23K and she spiked fever on 11/06. Repeat lactic acid 3.1. She was treated with IV fluids and ATB broadened to Vanco and Zosyn. Lactic acid normalized with IV fluids. Urinary antigens, respiratory PCR and blood cultures negative. Hemodynamically stable, no hypotension. Completed treatment with IV Vanco and Zosyn. ID following Qualifiers: Pneumonia type: due to unspecified organism Laterality: bilateral Lung location: lower lobe of lung Qualified Code(s): J18.9 - Pneumonia, unspecified organism (4) Sepsis Current Visit: Yes Status: Acute Assessment and plan: with leukocytosis, fever, and tachycardia; multifactorial with community- acquired pneumonia, UTI and pyelonepritis. Chest CT showed new bilateral pleural effusions with adjacent lung consolidation. Lactic acid peaked at 3.1 and normalized with IV fliods and ATB. Pneumonia treated with IV vanco and Zosyn. Blood cultures, urinary antigens, respiratory PCR, UA negative. Had increase in WBC 11/09; panculture ordered. Urine culture grew yeast. CT abdomen pelvis: perinephric stranding, stable moderate b/l pleural effusions, bladder wall thickening, progressive right hemipelvic metastatic disease. Sepsis now secondary to yeast UTI, pyelonephritis. Cont tx as noted above Qualifiers: Sepsis type: sepsis due to unspecified organism Qualified Code(s): A41.9 - Sepsis, unspecified organism (5) Lung cancer Current Visit: Yes Status: Chronic Assessment and plan: per hx. 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 Follows with Dr. Anderson. Holding chemotherapy. Oncology following Qualifiers: Laterality: right Lung location: upper lobe of lung Qualified Code(s): C34.11 - Malignant neoplasm of upper lobe, right bronchus or lung (6) ADDIS (acute kidney injury) Current Visit: Yes Status: Resolved Assessment and plan: Cr 1.5 on admission; baseline normal. Suspect secondary to poor by mouth intake and sepsis. Renal function normalized with IV fluids. Avoid nephrotoxic agents as possible. Monitor repeat renal function (7) Fall Current Visit: Yes Status: Acute Assessment and plan: with chronic numbness to bilateral lower extremities with generalized weakness and fatigue due to chemotherapy. Evaluated by PT/OT who is recommending SNF. Consult home health care social worker on Friday for discharge planning Qualifiers: Encounter type: initial encounter Qualified Code(s): W19.XXXA - Unspecified fall, initial encounter (8) Anemia Current Visit: Yes Status: Acute Assessment and plan: secondary to chemotherapy and chronic disease. No active bleeding. Hgb 7.8 on . Suspect multifactorial with chemotherapy dilutional value and possible nic from chemotherapy. Monitor H&H, transfuse for Hgb less than 7. Hgb 8.2 on 11/12 Qualifiers: Anemia type: other cause Other causes of anemia: antineoplastic chemotherapy Qualified Code(s): D64.81 - Anemia due to antineoplastic chemotherapy; T45.1X5A - Adverse effect of antineoplastic and immunosuppressive drugs, initial encounter; T45.1X5A - Adverse effect of antineoplastic and immunosuppressive drugs, initial encounter (9) Hypocalcemia Current Visit: Yes Status: Acute Assessment and plan: Ca 6.9, albumin 2.1. Corrected calcium 8.2. Give one-time dose IV calcium gluconate. Cont PO calcium limits. Repeat Ca 7.3 (10) Hypokalemia Current Visit: Yes Status: Resolved Assessment and plan: In the setting of IV Lasix. Replace PRN. Stable as of 11/12 (11) DVT prophylaxis Current Visit: Yes Status: Acute Assessment and plan: SCds with anemia - Subjective Interval history: Seen and examined at bedside; says she doesn't feel so well today. Feels weak and tired. Feels like she may of had a fever over night - Constitutional Vitals: Temp Pulse Resp BP Pulse Ox 99.0 F 102 18 142/74 94 11/12/17 19:10 11/12/17 19:10 11/12/17 19:59 11/12/17 19:10 11/12/17 19:59 General appearance: Present: cooperative, A&O X 3, pleasant, no acute distress, obese, answers questions appropriately - Head Head exam: Present: atraumatic, normocephalic - Eye Eye exam: Present: PERRL, conjuntiva pink, sclera anicteric Pupils: Present: PERRL - Neck Neck exam general surgery: Present: supple, trachea midline. Absent: lymphadenopathy - Respiratory Respiratory exam: Present: CTAB. Absent: accessory muscle use, rales, rhonchi, wheezes - Cardiovascular Cardiovascular exam: Present: RRR, +S1, +S2. Absent: diastolic murmur, gallop, rubs, systolic murmur - GI/Abdominal GI/Abdominal exam: Present: normal bowel sounds, soft, no peritoneal signs. Absent: distended, tenderness - Extremities Exam Extremities exam: Present: pedal edema, warm, radial pulses palpable and symmetrical. Absent: calf tenderness, cyanotic Additional comments: Minimal movement bilat lower extremities - Neurological Exam Neurological exam: Present: CN II-XII intact, oriented X3, no focal deficits. Absent: pronater drift, facial droop, speech deficit - Skin Skin exam: Present: dry, intact Internal Medicine: Result - Labs CBC & Chem 7: 11/12/17 08:59 11/12/17 08:59 Labs: Short CBC 11/12/17 Range/Units 08:59 WBC 31.7 H* (4.3-11.1) K/mcL Hgb 8.2 L (11.5-15.4) g/dL Hct 27.6 L (35.3-44.9) % Plt Count 433 H (140-400) K/mcL Neutrophils # 28.8 H (1.6-8.9) K/mcL BMP 11/12/17 08:59 Sodium 142 Potassium 3.4 L Chloride 106 Carbon Dioxide 23 BUN 19 Creatinine 0.80 Glucose 162 H Calcium 7.9 L - ABG Interpretation ABG results: PT/INR, D-dimer PT 16.7 Seconds (9.4-12.1) H 11/07/17 10:27 - VTE Documentation of Mechanical Device: Graduated compression elastic hosiery Consult Discharge Plan - Plan Referrals: Jeffery Anderson MD [Partnered Physician] - 11/21/17 1:40 pm Swati Rios DO [Primary Care Provider] -
[2017-11-13] MEDS: Ipratropium/Albuterol Neb 3 ML IH SCH ×5 (03:50→19:40)
[2017-11-13] MEDS: Fluconazole 200 MG/100 ML 200 MG/100 ML BAG IVPB SCH (07:48)
[2017-11-13] MEDS: Furosemide 20 MG/2 ML VIAL IVP SCH ×2 (07:49→22:12)
[2017-11-13] MEDS: Multivitamin Liquid 15 ML UDC PO SCH (07:49)
[2017-11-13] MEDS: Aspirin Enteric Coated 81 MG Tablet PO SCH (07:49)
[2017-11-13] MEDS: Ascorbic Acid 500 MG TABLET PO SCH (07:49)
[2017-11-13] MEDS: Cholecalciferol (D-3) 1,000 UNIT TABLET PO SCH (07:49)
[2017-11-13] MEDS: Insulin LISPRO 300 UNITS/3 ML VIAL SQ SCH ×4 (07:50→22:12)
[2017-11-13] MEDS: Piperacillin/Tazobactam 3.375 GM/200 ML BAG IVPB SCH ×2 (07:51→17:05)
[2017-11-13 08:31] LABS: Hematocrit 26.2 % (35.3-44.9); Hemoglobin 8.3 g/dL (11.5-15.4); Mean Corpuscular HGB Conc 31.7 g/dL (31.6-35.5); Mean Corpuscular Hemoglobin 26.7 pg (28.0-33.3); Mean Corpuscular Volume 84.2 fL (83.0-100.0); Platelet Count 416 K/mcL (140-400); Red Blood Count 3.11 M/mcL (3.82-4.97); Red Cell Distribution Width 17.1 % (11.5-14.5)
--- NOTE | 2017-11-13 08:59 | Internal Med Progress Note ---
Date of Encounter: 11/13/17 Time of Encounter: 08:58 - Assessment and plan (1) Pyelonephritis, acute Current Visit: Yes Status: Acute Assessment and plan: Symptomatic with fevers and worsening leukocytosis. ABD CT concerning for bilateral pyelonephritis, no evidence of abscess. No CVA tenderness. UA with yeast. Cont IV zosyn, diflucan. ID following (2) UTI (urinary tract infection) Current Visit: Yes Status: Acute Assessment and plan: UA indicative of UTI. Urine culture with johnathon. Cont Diflucan. ID following. Qualifiers: Urinary tract infection type: acute pyelonephritis Qualified Code(s): N10 - Acute pyelonephritis (3) Urinary retention Current Visit: Yes Status: Acute Assessment and plan: tobar catheter placed on admission to obtain UA. Apparently had urinary retention on 11/06/17 and tobar catheter was placed. No previous history of urinary retention. With UTI, pyelonephritis and sepsis remove Tobar catheter at this time. Bladder scan if no void in 6 hours. Consult urology if urinary retention recurs and tobar catheter needs replaced. (4) Pneumonia Current Visit: Yes Status: Ruled-out Assessment and plan: chest CT with bilateral pleural effusions with adjacent consolidation concerning for pneumonia. Initially treated with IV Levaquin, azithromycin and Rocephin. WBC increased to 23K and she spiked fever on 11/06. Repeat lactic acid 3.1. She was treated with IV fluids and ATB broadened to Vanco and Zosyn. Lactic acid normalized with IV fluids. Urinary antigens, respiratory PCR and blood cultures negative. Hemodynamically stable, no hypotension. Completed treatment for pneumonia with IV Vanco and Zosyn. ID following Qualifiers: Pneumonia type: due to unspecified organism Laterality: bilateral Lung location: lower lobe of lung Qualified Code(s): J18.9 - Pneumonia, unspecified organism (5) Sepsis Current Visit: Yes Status: Acute Assessment and plan: with leukocytosis, fever, and tachycardia; multifactorial with community- acquired pneumonia, UTI and pyelonepritis. Chest CT showed new bilateral pleural effusions with adjacent lung consolidation. Lactic acid peaked at 3.1 and normalized. Pneumonia treated with IV vanco and Zosyn. Blood cultures, urinary antigens, respiratory PCR, UA negative. Had increase in WBC 11/09; panculture ordered. Urine culture grew yeast. ABD CT concerning for pyelonephritis. Sepsis now secondary to yeast UTI, pyelonephritis. Cont tx as noted above Qualifiers: Sepsis type: sepsis due to unspecified organism Qualified Code(s): A41.9 - Sepsis, unspecified organism (6) Lung cancer Current Visit: Yes Status: Chronic Assessment and plan: hx metastatic adenocarcinoma of the RUL initially diagnosed 03/22/15. 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 Follows with Dr. Anderson. Holding chemotherapy. 11/10/[address] progressive right hemipelvic metastatic disease with extraosseous involvement, no new pathological fracture. Oncology following Qualifiers: Laterality: right Lung location: upper lobe of lung Qualified Code(s): C34.11 - Malignant neoplasm of upper lobe, right bronchus or lung (7) ADDIS (acute kidney injury) Current Visit: Yes Status: Resolved Assessment and plan: Cr 1.5 on admission; baseline normal. Suspect secondary to poor by mouth intake and sepsis. Renal function normalized with IV fluids. Avoid nephrotoxic agents as possible. Monitor repeat renal function. Renal function stable on 11/13 review (8) Fall Current Visit: Yes Status: Acute Assessment and plan: with chronic numbness to bilateral lower extremities with generalized weakness and fatigue due to chemotherapy. Evaluated by PT/OT who is recommending SNF. emergency services dispatcher assisting with discharge planning Qualifiers: Encounter type: initial encounter Qualified Code(s): W19.XXXA - Unspecified fall, initial encounter (9) Anemia Current Visit: Yes Status: Acute Assessment and plan: secondary to chemotherapy and chronic disease. No active bleeding. Hgb dropped to 7.8 on 11/09/17. Suspect multifactorial with chemotherapy dilutional value and possible nic from chemotherapy. Monitor H&H, transfuse for Hgb less than 7. Hgb 8.2 on 11/12. Repeat CBC pending Qualifiers: Anemia type: other cause Other causes of anemia: antineoplastic chemotherapy Qualified Code(s): D64.81 - Anemia due to antineoplastic chemotherapy; T45.1X5A - Adverse effect of antineoplastic and immunosuppressive drugs, initial encounter; T45.1X5A - Adverse effect of antineoplastic and immunosuppressive drugs, initial encounter (10) Hypocalcemia Current Visit: Yes Status: Acute Assessment and plan: Ca dropped to 6.9, albumin 2.1. Corrected calcium 8.2. Received one-time dose IV calcium gluconate. Repeat Ca improved. Cont PO calcium supplements. Intermittently monitor (11) Hypokalemia Current Visit: Yes Status: Resolved Assessment and plan: In the setting of IV Lasix. Replace PRN. Stable as of 11/12 (12) DVT prophylaxis Current Visit: Yes Status: Acute Assessment and plan: SCds with anemia - Time Spent With Patient 13. Atrial fibrillation: transient episode a-fib on 11/12/17; no previous history. Spontaneously converted to NSR without intervention. Likely secondary to acute illness, sepsis. Currently NSR, ST. Hold on anticoagulation , home BB increased. Monitor heart rate 14. Lower ext edema: bilateral lower ext dopplers negative for DVT. Stop IV fluids, LUZ wraps daily 15. Code status: DNRCC, no intubation. She does not want hospice at this time. Palliative followed. Discussed with Oncology who is planning on revisiting goals of care with patient on 11/13 - Subjective Interval history: Seen and examined at bedside. Says she feels about the same. She is agreeable to removing tobar catheter. Says she is weak and tired, otherwise has no complaints. Denies pain or discomfort. No CP or SOB - Constitutional Vitals: Temp Pulse Resp BP Pulse Ox 97.6 F 100 14 174/76 96 11/13/17 06:58 11/13/17 06:58 11/13/17 06:58 11/13/17 06:58 11/13/17 06:58 General appearance: Present: cooperative, A&O X 3, pleasant, no acute distress, obese, answers questions appropriately - Head Head exam: Present: atraumatic, normocephalic - Eye Eye exam: Present: PERRL, conjuntiva pink, sclera anicteric Pupils: Present: PERRL - Neck Neck exam general surgery: Present: supple, trachea midline. Absent: lymphadenopathy - Respiratory Respiratory exam: Present: CTAB. Absent: accessory muscle use, rales, rhonchi, wheezes - Cardiovascular Cardiovascular exam: Present: +S1, +S2, tachycardia. Absent: diastolic murmur, gallop, rubs, systolic murmur - GI/Abdominal GI/Abdominal exam: Present: normal bowel sounds, soft, no peritoneal signs. Absent: distended, tenderness - Extremities Exam Extremities exam: Present: pedal edema, warm, radial pulses palpable and symmetrical. Absent: calf tenderness, cyanotic Additional comments: RUE grossly edematous - Neurological Exam Neurological exam: Present: CN II-XII intact, oriented X3, no focal deficits. Absent: pronater drift, facial droop, speech deficit - Skin Skin exam: Present: dry, intact Internal Medicine: Result - Labs CBC & Chem 7: 11/12/17 08:59 11/12/17 08:59 Labs: Short CBC 11/12/17 Range/Units 08:59 WBC 31.7 H* (4.3-11.1) K/mcL Hgb 8.2 L (11.5-15.4) g/dL Hct 27.6 L (35.3-44.9) % Plt Count 433 H (140-400) K/mcL Neutrophils # 28.8 H (1.6-8.9) K/mcL BMP 11/12/17 08:59 Sodium 142 Potassium 3.4 L Chloride 106 Carbon Dioxide 23 BUN 19 Creatinine 0.80 Glucose 162 H Calcium 7.9 L - ABG Interpretation ABG results: PT/INR, D-dimer PT 16.7 Seconds (9.4-12.1) H 11/07/17 10:27 - VTE Documentation of Mechanical Device: Graduated compression elastic hosiery Consult Discharge Plan - Plan Referrals: Jeffery Anderson MD [Partnered Physician] - 11/21/17 1:40 pm Swati Rios DO [Primary Care Provider] -
[2017-11-13 09:03] LABS: BUN/Creatinine Ratio 26 (6-26); Blood Urea Nitrogen 19 mg/dL (8-23); Calcium 8.1 mg/dL (8.6-10.3); Carbon Dioxide 24 mEq/L (23-29); Chloride 107 mEq/L (98-107); Glucose 153 mg/dL (70-105); Osmolality,Calculated 303 (280-300); Potassium 3.5 mEq/L (3.5-5.1); Sodium 144 mEq/L (136-145); eGFR For African Americans > 60 (> 60); eGFR For Non-African Americans > 60 (> 60)
[2017-11-13 09:14] LABS: Monocytes # 1.1 K/mcL (0.0-1.3); Neutrophils # 26.6 K/mcL (1.6-8.9)
--- NOTE | 2017-11-13 09:18 | Infectious Disease Progress No ---
Date of Encounter: 11/13/17 Time of Encounter: 09:16 - Assessment and Plan (1) Sepsis Current Visit: Yes Status: Acute 3 sirs criteira on admission wbc improving now 27.7 tachycardic: EKG shows sinus tachycardia with QT prolongation afebrile Urine culture grew yeast blood cultures, urine legionella antigen and streptococcus pneumoniae antigen negative RIP negative CT abdomen pelvis: perinephric stranding, stable moerate b/l pleural effusions, bladder wall thickening, progressive right hemipelvic metastatic disease. Repeat blood cultures preliminarily negative (11/11/17) patients sepsis 2nd to yeast UTI, pyelonephritis Qualifiers: Sepsis type: sepsis due to unspecified organism Qualified Code(s): A41.9 - Sepsis, unspecified organism (2) Pyelonephritis Current Visit: Yes Status: Acute CT abdomen and pelvis: Perinephric stranding, bladder wall thickening. No CVA tenderness Urinalysis positive for bacteria and yeast. Urine culture grew yeast. Creatinine clearance 63 Patient on Zosyn 3.375 g every 8H Patient on Diflucan 200 mg daily (3) Candiduria Current Visit: Yes Status: Acute continue diflucan 200mg daily day 3 (4) Pneumonia Current Visit: Yes Status: Ruled-out initially reports cough,productive sputum. sputum production has resolved. however patient started on 2L O2 last night but no documentation of hypoxia. Curent sPO2 96. talked with primary: need to assess if O2 supplementation necessary denies sob CT chest shows b/l pleural effusion ateletasis vs pna RIP negative Blood cultures negative urine legionella and pneumococcal antigen negative Lung exam: nataliaer b/l Continue to monitor her status. Qualifiers: Pneumonia type: due to unspecified organism Laterality: bilateral Lung location: lower lobe of lung Qualified Code(s): J18.9 - Pneumonia, unspecified organism (5) Lung cancer Current Visit: Yes Status: Chronic Qualifiers: Laterality: right Lung location: upper lobe of lung Qualified Code(s): C34.11 - Malignant neoplasm of upper lobe, right bronchus or lung (6) ADDIS (acute kidney injury) Current Visit: Yes Status: Resolved (7) Fall Current Visit: Yes Status: Acute Management as per primary Qualifiers: Encounter type: initial encounter Qualified Code(s): W19.XXXA - Unspecified fall, initial encounter (8) Diabetes mellitus Current Visit: Yes Status: Chronic Management as per primary Qualifiers: Diabetes mellitus type: type 2 Diabetes mellitus complication status: with unspecified complications 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 Patient denies chills, shortness of breath, chest pain, abdominal pain. She is tolerating her diet. She has adequate urine production. Continues to have tobar. Discussed with primary about patient having urinary retention and may need urology consult. Was started on 2L O2 overnight saturation in 96%. Reports sputum production has resolved. Infect Dis PN-Objective Data - Labs CBC & Chem 7: 11/13/17 08:04 11/13/17 08:04 Labs: Laboratory Results - last 24 hr 11/12/17 11/12/17 11/12/17 07:30 08:59 08:59 WBC 31.7 H* RBC 3.18 L Hgb 8.2 L Hct 27.6 L MCV 86.8 MCH 25.8 L MCHC 29.7 L RDW 16.6 H Plt Count 433 H MPV 9.4 Immature Gran % 1.3 Seg Neutrophils % 90.8 Lymphocytes % 4.1 Monocytes % 3.3 Eosinophils % 0.3 Basophils % 0.2 Neutrophils # 28.8 H Lymphocytes # 1.3 Monocytes # 1.1 Eosinophils # 0.1 Basophils # 0.1 Platelet Estimate Normal Sodium 142 Potassium 3.4 L Chloride 106 Carbon Dioxide 23 BUN 19 Creatinine 0.80 Est GFR ( Amer) > 60 Est GFR (Non-Af Amer) > 60 BUN/Creatinine Ratio 24 Glucose 162 H POC Glucose 166 H Calculated Osmolality 300 Lactic Acid Calcium 7.9 L 11/12/17 11/12/17 11/12/17 10:41 11:43 16:27 WBC RBC Hgb Hct MCV MCH MCHC RDW Plt Count MPV Immature Gran % Seg Neutrophils % Lymphocytes % Monocytes % Eosinophils % Basophils % Neutrophils # Lymphocytes # Monocytes # Eosinophils # Basophils # Platelet Estimate Sodium Potassium Chloride Carbon Dioxide BUN Creatinine Est GFR ( Amer) Est GFR (Non-Af Amer) BUN/Creatinine Ratio Glucose POC Glucose 158 H 263 H Calculated Osmolality Lactic Acid 2.1 Calcium 11/13/17 11/13/17 08:04 08:04 WBC 27.7 H RBC 3.11 L Hgb 8.3 L Hct 26.2 L MCV 84.2 MCH 26.7 L MCHC 31.7 RDW 17.1 H Plt Count 416 H MPV 10.0 Immature Gran % Seg Neutrophils % 96.0 Lymphocytes % Monocytes % 4.0 Eosinophils % Basophils % Neutrophils # 26.6 H Lymphocytes # Monocytes # 1.1 Eosinophils # Basophils # Platelet Estimate Slight increase H Sodium 144 Potassium 3.5 Chloride 107 Carbon Dioxide 24 BUN 19 Creatinine 0.74 Est GFR ( Amer) > 60 Est GFR (Non-Af Amer) > 60 BUN/Creatinine Ratio 26 Glucose 153 H POC Glucose Calculated Osmolality 303 H Lactic Acid Calcium 8.1 L Cultures: Cultures 11/11/17 11:23 Blood Culture - Preliminary Peripheral Venipuncture No growth. 11/11/17 11:23 Blood Culture - Preliminary Peripheral Venipuncture No growth. 11/09/17 10:26 Blood Culture - Preliminary Peripheral Venipuncture No growth. 11/09/17 23:30 Urine Culture - Preliminary Urine,Clean Catch Yeast Species 11/05/17 11:24 Blood Culture - Final Peripheral Venipuncture No growth. 11/05/17 11:24 Blood Culture - Final Peripheral Venipuncture No growth. 11/09/17 10:26 Blood Culture - Preliminary Peripheral Venipuncture No growth. 11/08/17 11:20 Legionella Antigen - Final Urine,Catheterized Streptococcus pneumoniae Antigen (M - Final 11/07/17 12:30 Legionella Antigen - Final Urine,Clean Catch Streptococcus pneumoniae Antigen (M - Final Serology 11/09/17 11/08/17 11/05/17 Range/Units 23:30 16:11 13:37 Urine Color Yellow Yellow (Yellow) Urine Clarity Turbid A Cloudy A (Clear) Urine pH 6.0 6.5 (5.0-8.0) pH Units Ur Specific [place] 1.027 H 1.024 (1.010-1.025) Urine Protein 100 H 100 H (Neg-Trace) mg/dL Urine Glucose (UA) Normal Normal (Normal) mg/dL Urine Ketones Negative Negative (Negative) mg/dL Urine Blood Large H Negative (Negative) Urine Nitrite Negative Negative (Negative) Urine Bilirubin Negative Negative (Negative) Urine Urobilinogen Normal Normal (Normal) mg/dL Ur Leukocyte Esterase Large H Negative (Negative) Urine Microscopic RBC 50-100 H 0-3 (0-3) per hpf Urine Microscopic WBC TNTC H 5-15 H (0-3) per hpf Ur Squamous Epith Cells Few Many H (None-Few) per lpf Urine Bacteria Many H None Seen (None-Few) per hpf Hyaline Casts None Seen (None-Few) per lpf Urine Yeast Many H (None Seen) per hpf Ur Oval Fat Bodies Present A (Not Present) Ur Culture Indicated? YES A NO (NO) Chlamy pneumoniae PCR Not Detected (Not Detect) Adenovirus (PCR) Not Detected (Not Detect) B. pertussis DNA (PCR) Not Detected (Not Detect) B.parapertussis DNA PCR Not Detected (Not Detect) Coronavirus OC43 (PCR) Not Detected (Not Detect) Coronavirus HKU1 (PCR) Not Detected (Not Detect) Coronavirus 229E (PCR) Not Detected (Not Detect) Coronavirus NL63 (PCR) Not Detected (Not Detect) Human Metapneumovir PCR Not Detected (Not Detect) Influenza A (H1) PCR Not Detected (Not Detect) Influ A (H1N1/09) PCR Not Detected (Not Detect) Influenza A (H3) PCR Not Detected (Not Detect) Influenza A Untype (PCR) Not Detected (Not Detect) Influenza Type B (PCR) Not Detected (Not Detect) M.pneumoniae DNA (PCR) Not Detected (Not Detect) Parainfluenza 1 (PCR) Not Detected (Not Detect) Parainfluenza 2 (PCR) Not Detected (Not Detect) Parainfluenza 3 (PCR) Not Detected (Not Detect) Parainfluenza 4 (PCR) Not Detected (Not Detect) RSV (PCR) Not Detected (Not Detect) Entero/Rhino (PCR) Not Detected (Not Detect) Exam - Constitutional Vitals: Temp Pulse Resp BP Pulse Ox 97.6 F 100 14 174/76 96 11/13/17 06:58 11/13/17 06:58 11/13/17 06:58 11/13/17 06:58 11/13/17 06:58 - Additional findings Additional findings: General: Pleasant elderly female without distress. Obese. Heart: Sinus tachycardia Lungs: clear b/l Abdomen: Soft nontender, nondistended positive bowel sounds Skin: warm and dry Extremities: Bilateral 2+ pitting edema Neuro: Alert oriented 3 Vascular: Pedal and radial pulses 2 out of 4 - VTE Documentation of Mechanical Device: Graduated compression elastic hosiery Consult Discharge Plan - Plan Referrals: Jeffery Anderson MD [Partnered Physician] - 11/21/17 1:40 pm Swati Rios DO [Primary Care Provider] - - Attending Attestation I examined this patient and my medical decision-making was reviewed with the Resident Physician. I agree with the documented findings, disposition and treatment plan as described except to the extent set forth below.
--- NOTE | 2017-11-13 09:21 | Event Note ---
Date of Encounter: 11/13/17 Time of Encounter: 09:19 Please see the consult note. Patient's CODE STATUS is well-established is Comfort Care only. She does wish to try to continue to do immunotherapy after the time she spends in the [facility]. Not currently ready for hospice. however, she is clearly hospice eligible if she wishes to go that way. Plans are for discharge to [facility], patient will discuss with ECF with her that she needs to have further assistance or discharge. Palliative care is nothing further to offer on this particular case we will sign off please feel free to consult if we can help in any way.
--- NOTE | 2017-11-13 14:05 | Electrocardiograph Report ---
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
[2017-11-13] MEDS ORDERED: *HR* Metoprolol 5 MG/5 ML VIAL IVP ONE (16:47)
[2017-11-13] MEDS ORDERED: *HR* Digoxin 0.5 MG/2 ML AMPUL IVP ONE (17:36)
--- NOTE | 2017-11-13 18:27 | Electrocardiograph Report ---
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
[2017-11-13] MEDS ORDERED: 0.9 % Sodium Chloride 1,000 ML IVC ONE (18:28)
[2017-11-13] MEDS ORDERED: 0.9 % Sodium Chloride 500 ML ONE (18:34)
--- NOTE | 2017-11-13 20:09 | Event Note ---
Date of Encounter: 11/13/17 Time of Encounter: 17:00 Discussed case with Oncology and patient has now decided to transition to hospice care. She has been going in and out of a-fib, most likely secondary to sepsis. Received IV bolus Cardizem and digoxin as well as IV bolus. Can cont to treat if symptomatic however prognosis remains poor. Replace tobar catheter for comfort measures, remove tele. Limit blood draws. Palliative and Oncology following. 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
[2017-11-14] MEDS: Piperacillin/Tazobactam 3.375 GM/200 ML BAG IVPB SCH ×4 (00:08→23:27)
[2017-11-14] MEDS: Ipratropium/Albuterol Neb 3 ML IH SCH ×7 (00:10→23:27)
[2017-11-14 04:17] LABS: Basophils % 0.1 %; Eosinophils # 0.3 K/mcL (0.0-0.6); Eosinophils % 1.3 %; Hematocrit 24.5 % (35.3-44.9); Hemoglobin 7.3 g/dL (11.5-15.4); Immature Granulocytes % 1.3 % (0-4); Lymphocytes # 0.9 K/mcL (0.6-4.6); Lymphocytes % 4.3 %; Mean Corpuscular HGB Conc 29.8 g/dL (31.6-35.5); Mean Corpuscular Hemoglobin 26.2 pg (28.0-33.3); Mean Corpuscular Volume 87.8 fL (83.0-100.0); Mean Platelet Volume 9.2 fL (9.4-12.4); Monocytes # 0.8 K/mcL (0.0-1.3); Monocytes % 3.6 %; Neutrophils # 19.2 K/mcL (1.6-8.9); Platelet Count 380 K/mcL (140-400); Red Blood Count 2.79 M/mcL (3.82-4.97); Red Cell Distribution Width 17.1 % (11.5-14.5); Segmented Neutrophils % 89.4 %
[2017-11-14 04:53] LABS: BUN/Creatinine Ratio 21 (6-26); Blood Urea Nitrogen 17 mg/dL (8-23); Carbon Dioxide 31 mEq/L (23-29); Chloride 104 mEq/L (98-107); Glucose 120 mg/dL (70-105); Osmolality,Calculated 299 (280-300); Potassium 3.1 mEq/L (3.5-5.1); Sodium 143 mEq/L (136-145); eGFR For African Americans > 60 (> 60); eGFR For Non-African Americans > 60 (> 60)
[2017-11-14] MEDS: Insulin LISPRO 300 UNITS/3 ML VIAL SQ SCH ×4 (08:04→22:08)
[2017-11-14] MEDS: Fluconazole 200 MG/100 ML 200 MG/100 ML BAG IVPB SCH (08:20)
[2017-11-14] MEDS: Cholecalciferol (D-3) 1,000 UNIT TABLET PO SCH (08:22)
[2017-11-14] MEDS: Aspirin Enteric Coated 81 MG Tablet PO SCH (08:22)
[2017-11-14] MEDS: Ascorbic Acid 500 MG TABLET PO SCH (08:22)
[2017-11-14] MEDS: Furosemide 20 MG/2 ML VIAL IVP SCH ×2 (08:22→23:22)
[2017-11-14] MEDS: Multivitamin Liquid 15 ML UDC PO SCH (08:24)
--- NOTE | 2017-11-14 11:02 | Palliative Progress Note ---
Date of Encounter: 11/14/17 Time of Encounter: 09:00 - Assessment and plan (1) Goals of care, counseling/discussion Current Visit: Yes Status: Acute Assessment and plan: Patient is already comfort care, patient wishes to [facility] for [facility] and transition to hospice care after those are in. This will allow the family a chance to apply for Medicaid. (2) Lung cancer Current Visit: Yes Status: Chronic Assessment and plan: The patient understands that her cancer has progressed despite her immune therapy. Patient is now considering hospice care. Qualifiers: Laterality: right Lung location: upper lobe of lung Qualified Code(s): C34.11 - Malignant neoplasm of upper lobe, right bronchus or lung (3) Pneumonia Current Visit: Yes Status: Ruled-out Assessment and plan: On antibiotics, will continue [facility] antibiotics at [facility]. Her hospitalist team Qualifiers: Pneumonia type: due to unspecified organism Laterality: bilateral Lung location: lower lobe of lung Qualified Code(s): J18.9 - Pneumonia, unspecified organism (4) UTI (urinary tract infection) Current Visit: Yes Status: Acute Assessment and plan: On IV antibiotics continuing care with infectious disease and primary care team. Qualifiers: Urinary tract infection type: acute pyelonephritis Qualified Code(s): N10 - Acute pyelonephritis - Time Spent With Patient Total time spent is greater than 50% in coordination of care (as documented) at patient's floor/unit and/or counseling patient: - Subjective Interval history: The patient has no complaints of this morning, her breathing is okay and pain is under control. She is able to express to me that she understands that the cancer has increased despite her immune therapy. She is now actively considering hospice care. As had been on the back burner please see the assessment and plan. - Constitutional Vitals: Abnormal lab results WBC 21.5 K/mcL (4.3-11.1) H 11/14/17 04:05 RBC 2.79 M/mcL (3.82-4.97) L 11/14/17 04:05 Hgb 7.3 g/dL (11.5-15.4) L 11/14/17 04:05 Hct 24.5 % (35.3-44.9) L 11/14/17 04:05 MCH 26.2 pg (28.0-33.3) L 11/14/17 04:05 MCHC 29.8 g/dL (31.6-35.5) L 11/14/17 04:05 RDW 17.1 % (11.5-14.5) H 11/14/17 04:05 MPV 9.2 fL (9.4-12.4) L 11/14/17 04:05 Neutrophils # 19.2 K/mcL (1.6-8.9) H 11/14/17 04:05 Nucleated RBCs/100 WBC 0.1 /100 WBC (0) H 11/11/17 06:19 Platelet Estimate Slight increase (Normal) H 11/13/17 08:04 PT 16.7 Seconds (9.4-12.1) H 11/07/17 10:27 Potassium 3.1 mEq/L (3.5-5.1) L 11/14/17 04:05 Carbon Dioxide 31 mEq/L (23-29) H 11/14/17 04:05 Glucose 120 mg/dL (70-105) H 11/14/17 04:05 POC Glucose 153 (58-89) H 11/13/17 20:37 Calcium 8.0 mg/dL (8.6-10.3) L 11/14/17 04:05 Iron 24 mcg/dL (50-170) L 11/04/17 08:48 Transferrin 111 mg/dL (203-362) L 11/04/17 08:48 Creatine Kinase 238 Units/L (30-223) H 11/04/17 04:04 Serum Total Protein 5.1 g/dL (6.4-8.9) L 11/11/17 06:19 Albumin 2.2 g/dL (3.5-5.7) L 11/11/17 06:19 Albumin/Globulin Ratio 0.8 (1.1-2.2) L 11/11/17 06:19 Urine Clarity Turbid (Clear) A 11/09/17 23:30 Ur Specific [place] 1.027 (1.010-1.025) H 11/09/17 23:30 Urine Protein 100 mg/dL (Neg-Trace) H 11/09/17 23:30 Urine Blood Large (Negative) H 11/09/17 23:30 Ur Leukocyte Esterase Large (Negative) H 11/09/17 23:30 Urine Microscopic RBC 50-100 per hpf (0-3) H 11/09/17 23:30 Urine Microscopic WBC TNTC per hpf (0-3) H 11/09/17 23:30 Urine Bacteria Many per hpf (None-Few) H 11/09/17 23:30 Urine Yeast Many per hpf (None Seen) H 11/09/17 23:30 Ur Oval Fat Bodies Present (Not Present) A 11/05/17 13:37 Ur Culture Indicated? YES (NO) A 11/09/17 23:30 Vancomycin Trough 20.5 mcg/mL (10-20) H* 11/10/17 14:55 General appearance: Present: no acute distress - Head Head exam: Present: atraumatic, normal inspection - Eye Eye exam: Present: normal appearance - ENT ENT exam: Present: mucous membranes moist - Respiratory Respiratory exam: Present: CTAB - Cardiovascular Cardiovascular exam: Present: RRR - GI/Abdominal GI/Abdominal exam: Present: normal bowel sounds, soft. Absent: tenderness - Extremities Exam Extremities exam: Present: pedal edema. Absent: tenderness - Neurological Exam Neurological exam: Present: alert, oriented X3 - Psychiatric Psychiatric exam: Absent: agitated, anxious - Skin Skin exam: Present: dry, warm Palliative Quality Palliative Quality: Screen for Code Status: Yes, Screen for Goals of Care: Yes, Screen for Pain: Yes, If Pain Regimen Started, Initiate Bowel Regimen: NA, Screen for Nausea/Vomitting: Yes - Labs CBC & Chem 7: 11/14/17 04:05 11/14/17 04:05 Labs: Laboratory Results - last 24 hr 11/12/17 11/13/17 11/13/17 19:08 06:57 16:09 WBC RBC Hgb Hct MCV MCH MCHC RDW Plt Count MPV Immature Gran % Seg Neutrophils % Lymphocytes % Monocytes % Eosinophils % Basophils % Neutrophils # Lymphocytes # Monocytes # Eosinophils # Basophils # Sodium Potassium Chloride Carbon Dioxide BUN Creatinine Est GFR ( Amer) Est GFR (Non-Af Amer) BUN/Creatinine Ratio Glucose POC Glucose 284 H 181 H 119 H Calculated Osmolality Calcium 11/13/17 11/14/17 11/14/17 20:37 04:05 04:05 WBC 21.5 H RBC 2.79 L Hgb 7.3 L Hct 24.5 L MCV 87.8 MCH 26.2 L MCHC 29.8 L RDW 17.1 H Plt Count 380 MPV 9.2 L Immature Gran % 1.3 Seg Neutrophils % 89.4 Lymphocytes % 4.3 Monocytes % 3.6 Eosinophils % 1.3 Basophils % 0.1 Neutrophils # 19.2 H Lymphocytes # 0.9 Monocytes # 0.8 Eosinophils # 0.3 Basophils # 0.0 Sodium 143 Potassium 3.1 L Chloride 104 Carbon Dioxide 31 H BUN 17 Creatinine 0.81 Est GFR ( Amer) > 60 Est GFR (Non-Af Amer) > 60 BUN/Creatinine Ratio 21 Glucose 120 H POC Glucose 153 H Calculated Osmolality 299 Calcium 8.0 L - ABG Interpretation ABG results: PT/INR, D-dimer PT 16.7 Seconds (9.4-12.1) H 11/07/17 10:27 Consult Discharge Plan - Plan Referrals: Jeffery Anderson MD [Partnered Physician] - 11/21/17 1:40 pm Swati Rios DO [Primary Care Provider] -
--- NOTE | 2017-11-14 13:36 | Infectious Disease Progress No ---
Date of Encounter: 11/14/17 Time of Encounter: 13:33 - Assessment and Plan (1) Sepsis Status: Acute 3 sirs criteira on admission wbc improving, afebrile, not tachycardic. patients sepsis 2nd to yeast UTI, pyelonephritis Qualifiers: Sepsis type: sepsis due to unspecified organism Qualified Code(s): A41.9 - Sepsis, unspecified organism (2) Pyelonephritis Status: Acute CT abdomen and pelvis: Perinephric stranding, bladder wall thickening. No CVA tenderness Urinalysis positive for bacteria and yeast. Urine culture grew yeast. Creatinine clearance 63 Improving WBC. Patient on Zosyn 3.375 g every 8H Started 11/08 will need to be given for total 10 days Patient on Diflucan 200 mg daily started on 11/11 and will need to be given or total 10 days (3) Candiduria Status: Acute continue diflucan 200mg daily (4) Pneumonia Status: Ruled-out initially reports cough,productive sputum. denies sob CT chest shows b/l pleural effusion ateletasis vs pna RIP negative Blood cultures negative urine legionella and pneumococcal antigen negative Lung exam: clear b/l Continue to monitor her status. Qualifiers: Pneumonia type: due to unspecified organism Laterality: bilateral Lung location: lower lobe of lung Qualified Code(s): J18.9 - Pneumonia, unspecified organism (5) Lung cancer Status: Chronic Qualifiers: Laterality: right Lung location: upper lobe of lung Qualified Code(s): C34.11 - Malignant neoplasm of upper lobe, right bronchus or lung (6) ADDIS (acute kidney injury) Status: Resolved (7) Fall Status: Acute Management as per primary Qualifiers: Encounter type: initial encounter Qualified Code(s): W19.XXXA - Unspecified fall, initial encounter (8) Diabetes mellitus Status: Chronic Management as per primary Qualifiers: Diabetes mellitus type: type 2 Diabetes mellitus complication status: with unspecified complications Diabetes mellitus fdc 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 Patient denies chills, shortness of breath, chest pain, abdominal pain. Has been decided the patient will be transitioned to hospice care. Plan according to palliative care as she will be discharged to nursing facility finish up antibiotics and then. Transition to hospice. Infect Dis PN-Objective Data - Labs CBC & Chem 7: 11/15/17 03:40 11/15/17 03:40 Labs: Laboratory Results - last 24 hr 11/12/17 11/13/17 11/13/17 19:08 06:57 16:09 WBC RBC Hgb Hct MCV MCH MCHC RDW Plt Count MPV Immature Gran % Seg Neutrophils % Lymphocytes % Monocytes % Eosinophils % Basophils % Neutrophils # Lymphocytes # Monocytes # Eosinophils # Basophils # Sodium Potassium Chloride Carbon Dioxide BUN Creatinine Est GFR ( Amer) Est GFR (Non-Af Amer) BUN/Creatinine Ratio Glucose POC Glucose 284 H 181 H 119 H Calculated Osmolality Calcium 11/13/17 11/14/17 11/14/17 20:37 04:05 04:05 WBC 21.5 H RBC 2.79 L Hgb 7.3 L Hct 24.5 L MCV 87.8 MCH 26.2 L MCHC 29.8 L RDW 17.1 H Plt Count 380 MPV 9.2 L Immature Gran % 1.3 Seg Neutrophils % 89.4 Lymphocytes % 4.3 Monocytes % 3.6 Eosinophils % 1.3 Basophils % 0.1 Neutrophils # 19.2 H Lymphocytes # 0.9 Monocytes # 0.8 Eosinophils # 0.3 Basophils # 0.0 Sodium 143 Potassium 3.1 L Chloride 104 Carbon Dioxide 31 H BUN 17 Creatinine 0.81 Est GFR ( Amer) > 60 Est GFR (Non-Af Amer) > 60 BUN/Creatinine Ratio 21 Glucose 120 H POC Glucose 153 H Calculated Osmolality 299 Calcium 8.0 L 11/14/17 06:48 WBC RBC Hgb Hct MCV MCH MCHC RDW Plt Count MPV Immature Gran % Seg Neutrophils % Lymphocytes % Monocytes % Eosinophils % Basophils % Neutrophils # Lymphocytes # Monocytes # Eosinophils # Basophils # Sodium Potassium Chloride Carbon Dioxide BUN Creatinine Est GFR ( Amer) Est GFR (Non-Af Amer) BUN/Creatinine Ratio Glucose POC Glucose 132 H Calculated Osmolality Calcium Cultures: Cultures 11/09/17 23:30 Urine Culture - Final Urine,Clean Catch Lisa albicans 11/11/17 11:23 Blood Culture - Preliminary Peripheral Venipuncture No growth. 11/11/17 11:23 Blood Culture - Preliminary Peripheral Venipuncture No growth. 11/09/17 10:26 Blood Culture - Preliminary Peripheral Venipuncture No growth. 01/17/18 11:24 Blood Culture - Final Peripheral Venipuncture No growth. 11/05/17 11:24 Blood Culture - Final Peripheral Venipuncture No growth. 11/09/17 10:26 Blood Culture - Preliminary Peripheral Venipuncture No growth. 11/08/17 11:20 Legionella Antigen - Final Urine,Catheterized Streptococcus pneumoniae Antigen (M - Final 11/07/17 12:30 Legionella Antigen - Final Urine,Clean Catch Streptococcus pneumoniae Antigen (M - Final Serology 11/09/17 11/08/17 11/05/17 Range/Units 23:30 16:11 13:37 Urine Color Yellow Yellow (Yellow) Urine Clarity Turbid A Cloudy A (Clear) Urine pH 6.0 6.5 (5.0-8.0) pH Units Ur Specific [place] 1.027 H 1.024 (1.010-1.025) Urine Protein 100 H 100 H (Neg-Trace) mg/dL Urine Glucose (UA) Normal Normal (Normal) mg/dL Urine Ketones Negative Negative (Negative) mg/dL Urine Blood Large H Negative (Negative) Urine Nitrite Negative Negative (Negative) Urine Bilirubin Negative Negative (Negative) Urine Urobilinogen Normal Normal (Normal) mg/dL Ur Leukocyte Esterase Large H Negative (Negative) Urine Microscopic RBC 50-100 H 0-3 (0-3) per hpf Urine Microscopic WBC TNTC H 5-15 H (0-3) per hpf Ur Squamous Epith Cells Few Many H (None-Few) per lpf Urine Bacteria Many H None Seen (None-Few) per hpf Hyaline Casts None Seen (None-Few) per lpf Urine Yeast Many H (None Seen) per hpf Ur Oval Fat Bodies Present A (Not Present) Ur Culture Indicated? YES A NO (NO) Chlamy pneumoniae PCR Not Detected (Not Detect) Adenovirus (PCR) Not Detected (Not Detect) B. pertussis DNA (PCR) Not Detected (Not Detect) B.parapertussis DNA PCR Not Detected (Not Detect) Coronavirus OC43 (PCR) Not Detected (Not Detect) Coronavirus HKU1 (PCR) Not Detected (Not Detect) Coronavirus 229E (PCR) Not Detected (Not Detect) Coronavirus NL63 (PCR) Not Detected (Not Detect) Human Metapneumovir PCR Not Detected (Not Detect) Influenza A (H1) PCR Not Detected (Not Detect) Influ A (H1N1/09) PCR Not Detected (Not Detect) Influenza A (H3) PCR Not Detected (Not Detect) Influenza A Untype (PCR) Not Detected (Not Detect) Influenza Type B (PCR) Not Detected (Not Detect) M.pneumoniae DNA (PCR) Not Detected (Not Detect) Parainfluenza 1 (PCR) Not Detected (Not Detect) Parainfluenza 2 (PCR) Not Detected (Not Detect) Parainfluenza 3 (PCR) Not Detected (Not Detect) Parainfluenza 4 (PCR) Not Detected (Not Detect) RSV (PCR) Not Detected (Not Detect) Entero/Rhino (PCR) Not Detected (Not Detect) Exam - Constitutional Vitals: Temp Pulse Resp BP Pulse Ox 97.8 F 93 16 154/81 97 11/14/17 06:46 11/14/17 06:46 11/14/17 11:14 11/14/17 06:46 11/14/17 11:14 - Additional findings Additional findings: General: Pleasant elderly female without distress. Obese. Heart: irregularly irregular Lungs: clear b/l Abdomen: Soft nontender, nondistended positive bowel sounds Skin: warm and dry Extremities: Bilateral 2+ pitting edema Neuro: Alert oriented 3 Vascular: Pedal and radial pulses 2 out of 4 - VTE Documentation of Mechanical Device: Graduated compression elastic hosiery Consult Discharge Plan - Plan Referrals: Jeffery Anderson MD [Partnered Physician] - 11/21/17 1:40 pm Swati Rios DO [Primary Care Provider] - Prescriptions: Fluconazole 100 MG/50 ML [Diflucan 100 MG/50 ML] 200 mg IVPB DAILY #3 bag HYDROcodone/Acet 5/325 mg [[place] 5-325 mg] 1 tab PO Q6H PRN #60 tab PRN Reason: Pain LORazepam [Ativan] 0.5 mg PO Q8H PRN #24 tablet PRN Reason: anxiety, nausea, insomnia Morphine Immed Rel [Morphine Sulfate] 15 mg PO Q2H PRN #30 tab PRN Reason: Pain Dupjdmucslqq-Rmtq-Qyuxlguy,Iso [Zosyn 3.375 gm/50 ml Galaxy] 3.375 gm IV Q8H # 12 [email or web address] - Attending Attestation I examined this patient and my medical decision-making was reviewed with the Resident Physician. I agree with the documented findings, disposition and treatment plan as described except to the extent set forth below.
--- NOTE | 2017-11-14 13:41 | Oncology Inp Progress Note ---
<Mariama Mcfarland L - Last Filed: 11/18/17 09:55> Date of Encounter: 11/13/17 Time of Encounter: 13:41 (1) Lung cancer Status: Chronic Assessment and plan: Dr. Stallworth had detailed discussion regarding patients recent CT findings which show progressive right hemipelvic metastatic disease with extraosseous infiltrative soft tissue component. Radiographic findings indicate progression of disease on current therapy with Xalkori. Discussed other treatment options at this time which may include options such as Nivolumab. Prognosis is poor at this time, patients functional status has declined to the point where she has not been able to get out of bed during hospital stay, she is not eating and has developed significant anasarca likely from malnourishment among other factors. She is unable to ambulate at this time and attributes pain to her right hip, which is likely caused from her progressive metastatic disease. She has received radiation to this area in the past. Currently in her functional state (ECOG PS 3-4) she would not be a good candidate for chemotherapy. She is planned to discharge to [facility] with [facility] to continue her IV ATB and work on application for Medicaid. Following goals of care discussion she does not wish to continue to participate in therapy and wishes to transition to Hospice Care following her [facility] days. She understands that by transitioning to Hospice care other cancer treatment options will not be pursued and the goal would be to treat her only symptomatically with the goal to keep her comfortable by maintaining good quality of life. Discussed plan as outlined above with Dr. Rm and palliative team for discharge planning. Oncology will also plan to touch base with patient/patients family. Will make the offer that if she makes significant strides in ECF and wishes to pursue further rehabilitation and cancer treatment options she may absolutely choose to do so and we will assist her along this path. Will likely arrange for follow up in about 3 weeks time if she so chooses to pursue this option. If not, hospice is appropriate alternative course. Qualifiers: Laterality: right Lung location: upper lobe of lung Qualified Code(s): C34.11 - Malignant neoplasm of upper lobe, right bronchus or lung Oncology: Subj Interval history: Ms. Wasserman's respiratory symptoms have improved and she reports her cough has lessened. Constipation has resolved. She is not eating and has no appetite. She states she was able to get OOB to the chair today with max assist. SHe is currently comfortable, resting in bed at this time and denies pain. - Constitutional Vitals: Vital Signs Temp Pulse Resp BP Pulse Ox 11/14/17 11:14 16 97 11/14/17 08:07 15 97 11/14/17 06:46 97.8 F 93 15 154/81 97 11/14/17 03:56 84 97 11/14/17 00:11 16 93 11/13/17 19:40 16 93 11/13/17 19:01 98.5 F 133 16 103/68 95 11/13/17 16:10 98.3 F 103 17 108/51 96 11/13/17 15:33 18 97 Intake and Output 11/13/17 11/14/17 11/14/17 23:59 07:59 15:59 Intake Total 200 / 200 600 / 600 320 / 320 Output Total 350 / 350 750 / 750 Balance -150 / -150 600 / 600 -430 / -430 Intake: IV Fluids 200 / 200 200 / 200 200 / 200 Zosyn Premix 3.375 GM/200 ML 3. 200 / 200 200 / 200 200 / 200 375 gm In 200 ml @ 50 mls/hr IVPB Q8HR [facility] Rx#:[id number] Oral 400 / 400 120 / 120 Output: Catheter 350 / 350 750 / 750 Urethral (Simental) 350 / 350 750 / 750 Other: Meal water pitcher Breakfast Percent of Meal Consumed 15% Stool Size Moderate Stool Consistency loose Stool Color Brown # Bowel Movements 1 Blood Glucose* 153 132 272 General appearance: cooperative, no acute distress, no febrile Exam: Generalized edema/Anasarca - Head Head exam: Present: atraumatic - Respiratory Respiratory exam: Present: decreased breath sounds, CTAB - Cardiovascular Cardiovascular exam: Present: RRR, +S1, +S2 - GI/Abdominal GI/Abdominal exam: Present: normal bowel sounds, soft. Absent: guarding, tenderness - Extremities Exam Extremities exam: Present: pedal edema. Absent: calf tenderness Additional comments: 2-3+ pitting edema BLE - Neurological Exam Neurological exam: Present: alert, oriented X3, no focal deficits, strengths equal and symetr throughout. Absent: speech deficit - Psychiatric Psychiatric exam: Present: normal affect, normal mood - Skin Skin exam: Present: pallor, warm Oncology: Obj Data - Labs CBC & Chem 7: 11/15/17 03:40 11/15/17 03:40 - ABG Interpretation ABG results: PT/INR, D-dimer PT 16.7 Seconds (9.4-12.1) H 11/07/17 10:27 Consult Discharge Plan - Plan Referrals: Jeffery Anderson MD [Partnered Physician] - 11/21/17 1:40 pm Swati Rios DO [Primary Care Provider] - Prescriptions: HYDROcodone/Acet 5/325 mg [[place] 5-325 mg] 1 tab PO Q6H PRN #60 tab PRN Reason: Pain LORazepam [Ativan] 0.5 mg PO Q8H PRN #24 tablet PRN Reason: anxiety, nausea, insomnia Morphine Immed Rel [Morphine Sulfate] 15 mg PO Q2H PRN #30 tab PRN Reason: Pain <Rishabh Stallworth - Last Filed: 11/24/17 08:34> Date of Encounter: 11/24/17 (1) Neuropathy Status: Acute (2) Lung cancer Status: Chronic Qualifiers: Laterality: right Lung location: upper lobe of lung Qualified Code(s): C34.11 - Malignant neoplasm of upper lobe, right bronchus or lung (3) Leukocytosis Status: Acute Qualifiers: Leukocytosis type: unspecified Qualified Code(s): D72.829 - Elevated white blood cell count, unspecified Oncology: Obj Data - Labs CBC & Chem 7: 11/15/17 03:40 11/15/17 03:40 - ABG Interpretation ABG results: PT/INR, D-dimer PT 16.7 Seconds (9.4-12.1) H 11/07/17 10:27
[2017-11-14 15:18] LABS: Hematocrit 25.8 % (35.3-44.9); Hemoglobin 7.6 g/dL (11.5-15.4)
--- NOTE | 2017-11-14 17:03 | Internal Med Progress Note ---
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 Follows with Dr. Anderson. Holding chemotherapy. 11/10/[address] progressive right hemipelvic metastatic disease with extraosseous involvement, no new pathological fracture. Code status DNR-CC /DNI. Plan to transfer to [facility] 11/14. Oncology and Palliative following Qualifiers: Laterality: right Lung location: upper lobe of lung Qualified Code(s): C34.11 - Malignant neoplasm of upper lobe, right bronchus or lung (2) ADDIS (acute kidney injury) Current Visit: Yes Status: Resolved Assessment and plan: Cr 1.5 on admission; baseline normal. Suspect secondary to poor by mouth intake and sepsis. Renal function normalized with IV fluids. Avoid nephrotoxic agents as possible. Monitor repeat renal function. Renal function stable on 11/13 review (3) Fall Current Visit: Yes Status: Acute Assessment and plan: with chronic numbness to bilateral lower extremities with generalized weakness and fatigue due to chemotherapy. Evaluated by PT/OT who is recommending SNF. consulting services associate assisting with discharge planning Qualifiers: Encounter type: initial encounter Qualified Code(s): W19.XXXA - Unspecified fall, initial encounter (4) Hypokalemia Current Visit: Yes Status: Resolved Assessment and plan: In the setting of IV Lasix. Replace PRN. Stable as of 11/12 (5) DVT prophylaxis Current Visit: Yes Status: Acute (6) Sepsis Current Visit: Yes Status: Acute Qualifiers: Sepsis type: sepsis due to unspecified organism Qualified Code(s): A41.9 - Sepsis, unspecified organism (7) Pneumonia Current Visit: Yes Status: Ruled-out Qualifiers: Pneumonia type: due to unspecified organism Laterality: bilateral Lung location: lower lobe of lung Qualified Code(s): J18.9 - Pneumonia, unspecified organism (8) Hypocalcemia Current Visit: Yes Status: Acute (9) UTI (urinary tract infection) Current Visit: Yes Status: Acute Qualifiers: Urinary tract infection type: acute pyelonephritis Qualified Code(s): N10 - Acute pyelonephritis (10) Pyelonephritis, acute Current Visit: Yes Status: Acute (11) Anemia Current Visit: Yes Status: Acute Assessment and plan: secondary to chemotherapy and chronic disease. No active bleeding. Hgb dropped to 7.8 on 11/09/17. Suspect multifactorial with chemotherapy dilutional value and possible nic from chemotherapy. Monitor H&H, transfuse for Hgb less than 7. Hgb 7.6 on 11/14; patient is agreeable to 1 unit PRBC. Qualifiers: Anemia type: other cause Other causes of anemia: antineoplastic chemotherapy Qualified Code(s): D64.81 - Anemia due to antineoplastic chemotherapy; T45.1X5A - Adverse effect of antineoplastic and immunosuppressive drugs, initial encounter; T45.1X5A - Adverse effect of antineoplastic and immunosuppressive drugs, initial encounter - Subjective Interval history: Seen and examined at bedside; had a long discussion with patient regarding code status. Patient says she does not want to see aggressive treatment. She is comfortable at this time. Daughter updated on phone. - Constitutional Vitals: Temp Pulse Resp BP Pulse Ox 97.8 F 93 16 154/81 97 11/14/17 06:46 11/14/17 06:46 11/14/17 11:14 11/14/17 06:46 11/14/17 11:14 General appearance: Present: cooperative, A&O X 3, pleasant, no acute distress, obese, answers questions appropriately - Head Head exam: Present: atraumatic, normocephalic - Eye Eye exam: Present: PERRL, conjuntiva pink, sclera anicteric Pupils: Present: PERRL - Neck Neck exam general surgery: Present: supple, trachea midline. Absent: lymphadenopathy - Respiratory Respiratory exam: Present: CTAB. Absent: accessory muscle use, rales, rhonchi, wheezes - Cardiovascular Cardiovascular exam: Present: irregular rhythm, +S1, +S2. Absent: diastolic murmur, gallop, rubs, systolic murmur - GI/Abdominal GI/Abdominal exam: Present: normal bowel sounds, soft, no peritoneal signs. Absent: distended, tenderness - Extremities Exam Extremities exam: Present: pedal edema, warm, radial pulses palpable and symmetrical. Absent: calf tenderness, cyanotic - Neurological Exam Neurological exam: Present: CN II-XII intact, oriented X3, no focal deficits. Absent: pronater drift, facial droop, speech deficit - Skin Skin exam: Present: dry, intact Internal Medicine: Result - Labs CBC & Chem 7: 11/14/17 14:55 11/14/17 04:05 Labs: Short CBC 11/14/17 11/14/17 Range/Units 04:05 14:55 WBC 21.5 H (4.3-11.1) K/mcL Hgb 7.3 L 7.6 L (11.5-15.4) g/dL Hct 24.5 L 25.8 L (35.3-44.9) % Plt Count 380 (140-400) K/mcL Neutrophils # 19.2 H (1.6-8.9) K/mcL BMP 11/14/17 04:05 Sodium 143 Potassium 3.1 L Chloride 104 Carbon Dioxide 31 H BUN 17 Creatinine 0.81 Glucose 120 H Calcium 8.0 L - ABG Interpretation ABG results: PT/INR, D-dimer PT 16.7 Seconds (9.4-12.1) H 11/07/17 10:27 - VTE Documentation of Mechanical Device: Graduated compression elastic hosiery Consult Discharge Plan - Plan Referrals: Jeffery Anderson MD [Partnered Physician] - 11/21/17 1:40 pm Swati Rios DO [Primary Care Provider] -
[2017-11-14] MEDS ORDERED: 0.9 % Sodium Chloride 250 ML ONE (19:34)
[2017-11-14] MEDS: 0.9 % Sodium Chloride 250 ML IVC SCH (19:50)
[2017-11-14] MEDS: Benzonatate 100 MG CAPSULE PO PRN (22:08)
[2017-11-15] MEDS: Ipratropium/Albuterol Neb 3 ML IH SCH ×4 (03:27→15:55)
[2017-11-15 03:53] LABS: Basophils % 0.1 %; Eosinophils % 0.8 %; Lymphocytes % 4.2 %; Mean Platelet Volume 9.5 fL (9.4-12.4)
[2017-11-15 03:55] LABS: Eosinophils # 0.2 K/mcL (0.0-0.6); Hematocrit 30.8 % (35.3-44.9); Hemoglobin 9.5 g/dL (11.5-15.4); Immature Granulocytes % 2.1 % (0-4); Lymphocytes # 1.2 K/mcL (0.6-4.6); Mean Corpuscular HGB Conc 30.8 g/dL (31.6-35.5); Mean Corpuscular Volume 87.5 fL (83.0-100.0); Monocytes % 3.7 %; Nucleated Red Blood Cells 0.1 /100 WBC (0); Platelet Count 464 K/mcL (140-400); Red Blood Count 3.52 M/mcL (3.82-4.97); Red Cell Distribution Width 16.1 % (11.5-14.5); Segmented Neutrophils % 89.1 %
[2017-11-15 04:13] LABS: BUN/Creatinine Ratio 23 (6-26); Blood Urea Nitrogen 17 mg/dL (8-23); Calcium 8.2 mg/dL (8.6-10.3); Carbon Dioxide 31 mEq/L (23-29); Chloride 102 mEq/L (98-107); Glucose 143 mg/dL (70-105); Osmolality,Calculated 300 (280-300); Potassium 2.7 mEq/L (3.5-5.1); Sodium 143 mEq/L (136-145); eGFR For African Americans > 60 (> 60); eGFR For Non-African Americans > 60 (> 60)
[2017-11-15] MEDS: 0.9 % Sodium Chloride 250 ML IVC SCH (05:10)
[2017-11-15] MEDS: Insulin LISPRO 300 UNITS/3 ML VIAL SQ SCH ×3 (08:14→16:42)
[2017-11-15] MEDS: Fluconazole 200 MG/100 ML 200 MG/100 ML BAG IVPB SCH (08:14)
[2017-11-15] MEDS: Furosemide 20 MG/2 ML VIAL IVP SCH (08:14)
[2017-11-15] MEDS: Piperacillin/Tazobactam 3.375 GM/200 ML BAG IVPB SCH ×2 (08:15→16:42)
--- NOTE | 2017-11-15 10:15 | Electrocardiograph Report ---
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
--- NOTE | 2017-11-15 14:05 | Discharge Summary ---
Date of Encounter: 11/15/17 Time of Encounter: 12:30 - Discharge Diagnosis (1) Lung cancer Priority: Primary Status: Chronic Comments: hx metastatic adenocarcinoma of the RUL initially diagnosed 03/22/15. 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 Follows with Dr. Anderson. Holding chemotherapy. 11/10/[address] progressive right hemipelvic metastatic disease with extraosseous involvement, no new pathological fracture. Goals of care discussed with patient multiple times and ultimately patient wanted to hold on officially transitioning to hospice at this time, however CODE STATUS reviewed and she remains a DNR/CC/DNI. Had multiple discussions with patient regarding plan of care and patient wants least aggressive treatment at this time. All nonessential medications stopped, limit blood draws. Focus on comfort care. Family at bedside and updated 11/15/17. Code status DNR-CC/DNI. Oncology and palliative followed. Discuss with oncology multiple times and plan is to not continue crizotinib at this time Qualifiers: Laterality: right Lung location: upper lobe of lung Qualified Code(s): C34.11 - Malignant neoplasm of upper lobe, right bronchus or lung (2) Pyelonephritis, acute Priority: Primary Status: Acute Comments: Symptomatic with fevers and worsening leukocytosis. ABD CT concerning for bilateral pyelonephritis, no evidence of abscess. No CVA tenderness. UA with yeast. Cont Zosyn 3.375 g every 8H Started 11/08 will need to be given for total 10 days per ID recommendations (3) UTI (urinary tract infection) Priority: Primary Status: Acute Comments: UA indicative of UTI. Urine culture with johnathon. Cont Diflucan 200 mg daily started on 11/11 and will need to be given or total 10 days per ID recommendations Qualifiers: Urinary tract infection type: acute pyelonephritis Qualified Code(s): N10 - Acute pyelonephritis (4) Sepsis Priority: Primary Status: Acute Comments: with leukocytosis, fever, and tachycardia; multifactorial with community- acquired pneumonia, UTI and pyelonepritis. Chest CT showed new bilateral pleural effusions with adjacent lung consolidation. Lactic acid peaked at 3.1 and normalized. Pneumonia treated with IV vanco and Zosyn. Blood cultures, urinary antigens, respiratory PCR, UA negative. Had increase in WBC 11/09; panculture ordered. Urine culture grew yeast. ABD CT concerning for pyelonephritis. Sepsis now secondary to yeast UTI, pyelonephritis. Cont tx as noted above. ID followed Qualifiers: Sepsis type: sepsis due to unspecified organism Qualified Code(s): A41.9 - Sepsis, unspecified organism (5) Anemia Priority: Primary Status: Acute Comments: secondary to chemotherapy and chronic disease. No active bleeding. Hgb dropped to 7.8 on 11/09/17. Suspect multifactorial with chemotherapy dilutional value and possible nic from chemotherapy. Received 1 unit PRBC with improvement in hemoglobin to 9.2. CBC can intermittently be monitored at [facility] Qualifiers: Anemia type: other cause Other causes of anemia: antineoplastic chemotherapy Qualified Code(s): D64.81 - Anemia due to antineoplastic chemotherapy; T45.1X5A - Adverse effect of antineoplastic and immunosuppressive drugs, initial encounter; T45.1X5A - Adverse effect of antineoplastic and immunosuppressive drugs, initial encounter (6) Pneumonia Priority: Primary Status: Ruled-out Comments: chest CT with bilateral pleural effusions with adjacent consolidation concerning for pneumonia. Initially treated with IV Levaquin, azithromycin and Rocephin. WBC increased to 23K and she spiked fever on 11/06. Repeat lactic acid 3.1. She was treated with IV fluids and ATB broadened to Vanco and Zosyn. Lactic acid normalized with IV fluids. Urinary antigens, respiratory PCR and blood cultures negative. Hemodynamically stable, no hypotension. Completed treatment for pneumonia with IV Vanco and Zosyn. ID followed Qualifiers: Pneumonia type: due to unspecified organism Laterality: bilateral Lung location: lower lobe of lung Qualified Code(s): J18.9 - Pneumonia, unspecified organism (7) ADDIS (acute kidney injury) Priority: Primary Status: Resolved Comments: Cr 1.5 on admission; baseline normal. Suspect secondary to poor by mouth intake and sepsis. Renal function normalized with IV fluids. (8) Fall Priority: Primary Status: Acute Comments: with chronic numbness to bilateral lower extremities with generalized weakness and fatigue due to chemotherapy. Evaluated by PT/OT who is recommended SNF Qualifiers: Encounter type: initial encounter Qualified Code(s): W19.XXXA - Unspecified fall, initial encounter (9) Hypokalemia Priority: Secondary Status: Resolved Comments: Potassium intermittently low, secondary to IV Lasix. Potassium 2.8 on 11/15. Replaced with oral potassium. IV Lasix stopped, resume home Lasix. Potassium can be monitored at [facility]. (10) Urinary retention Priority: Primary Status: Acute Comments: tobar catheter placed on admission to obtain UA. Apparently had urinary retention on 11/06/17 and tobar catheter was placed. No previous history of urinary retention. Tobar catheter replaced for urinary retention recurrence and comfort care measures. (11) Atrial fibrillation Priority: Primary Status: Acute Comments: transient episode a-fib on 11/12/17; no previous history. Spontaneously converted to NSR without intervention. Likely secondary to acute illness, sepsis. Currently NSR, ST. Hold on anticoagulation, home BB increased. Qualifiers: Atrial fibrillation type: paroxysmal Qualified Code(s): I48.0 - Paroxysmal atrial fibrillation - Discharge Medications Prescriptions: Fluconazole 100 MG/50 ML [Diflucan 100 MG/50 ML] 200 mg IVPB DAILY #3 bag HYDROcodone/Acet 5/325 mg [Mooers 5-325 mg] 1 tab PO Q6H PRN #60 tab PRN Reason: Pain LORazepam [Ativan] 0.5 mg PO Q8H PRN #24 tablet PRN Reason: anxiety, nausea, insomnia Morphine Immed Rel [Morphine Sulfate] 15 mg PO Q2H PRN #30 tab PRN Reason: Pain Ydpxktianlda-Hxxa-Xvkyeoru,Iso [Zosyn 3.375 gm/50 ml Galaxy] 3.375 gm IV Q8H # 12 froz.piggy Home Medications: Calcium Carbonate/Vitamin D3 [Calcium 600 + D Tablet] 1 each PO DAILY 05/22/15 [ History] Glimepiride [Amaryl] 2 mg PO DAILY 05/22/15 [History] Gluc HCl/Csa/Collagen/Hyalur A [Glucosamine Chondroitin Cap] 1 each PO DAILY 01/01 [History] Lisinopril/Hydrochlorothiazide [Lisinopril-Hctz 20-12.5 mg Tab] 1 each PO BID [History] Metoprolol Tartrate 50 mg PO BID 05/22/15 [History] Multivitamin/Iron/Folic Acid [Centrum Complete Multivit Tab] 1 each PO DAILY 01/01 [History] Simvastatin [Zocor] 20 mg PO HS 05/22/15 [History] Polyethylene Glycol 3350 [MiraLAX] 17 gm PO DAILY PRN 12/10/16 [History] Sertraline [Zoloft] 25 mg PO DAILY #30 tablet 12/10/16 [Rx] Cholecalciferol (D-3) [Vitamin D] 1,000 unit PO BID 02/07/17 [History] Ascorbic Acid [Vitamin C] 1,000 mg PO DAILY 08/21/17 [History] Docusate [Colace] 200 mg PO BID #120 capsule 10/07/17 [Rx] Lactulose 20 gm PO QID PRN #240 ml 10/07/17 [Rx] Aspirin Enteric Coated [Aspirin EC] 81 mg PO DAILY 11/03/17 [History] Dexamethasone [Decadron] 4 mg PO DAILY 11/03/17 [History] Loperamide [Imodium] 2 mg PO PER PKG DI PRN 11/03/17 [History] Omeprazole [PriLOSEC] 20 mg PO DAILY 11/03/17 [History] Fluconazole 100 MG/50 ML [Diflucan 100 MG/50 ML] 200 mg IVPB DAILY #3 bag [Rx] HYDROcodone/Acet 5/325 mg [Mooers 5-325 mg] 1 tab PO Q6H PRN #60 tab 11/15/17 [Rx ] LORazepam [Ativan] 0.5 mg PO Q8H PRN #24 tablet 11/15/17 [Rx] Morphine Immed Rel [Morphine Sulfate] 15 mg PO Q2H PRN #30 tab 11/15/17 [Rx] Prmqeqhknhdq-Xhtp-Tykapmwr,Iso [Zosyn 3.375 gm/50 ml Galaxy] 3.375 gm IV Q8H # 12 froz.piggy 11/15/17 [Rx] Allergies/Adverse Reactions: 3 Allergy/AdvReac Type Severity Reaction Status Date / Time Sulfa (Sulfonamide Allergy Unknown Fainting Verified 10/07/17 11:18 Antibiotics) Procedures/tests Complete & Pending: Procedures Performed prior 72 hours Category Date Time Status ECG 12 lead ECG [ECG] Routine Y 11/13/17 16:56 Completed EKG [ECG 12 lead ECG] [ECG] Stat Y 11/13/17 06:04 Completed EV venous imaging UE RT Routine Y 11/13/17 Completed Date of admission: 11/03/17 21:11 Primary care physician: Swati Rios DO Consults: 11/07/17 08:47 Consult to Invasive Line Access Team [CONS] Routine Reason for Consult: limited IV access Line Type: EPIV 11/08/17 10:15 Consult to Oncology [CONS] Routine Consulting Provider: [facility] Reason for Consult: known lung ca with mets to bone. Now with pneumonia and sepsis Call Completed: Yes 11/10/17 11:29 Consult to Infectious Diseases [CONS] Routine Consulting Provider: Infectious Disease [facility] Reason for Consult: Leukocytosis, on Vanco and Zosyn Call Completed: Yes 11/11/17 10:37 Consult to Palliative Care [CONS] Routine Comment: Consulting Provider: Palliative Care Sandy Reason for Consult: Goals of care Call Completed: Yes 11/12/17 10:58 Consult to Invasive Line Access Team [CONS] Routine Reason for Consult: Picc Line Insertion Line Type: EPIV Discharging clinician: Cecilia Miner Anticipated date of discharge: 11/15/17 - Patient Status Disposition: Transfer SNF Condition: Fair Functional capacity at discharge: bed bound Overall status at discharge: patient is not back to baseline - Discharge Instructions Follow Up With: Jeffery Anderson MD [Partnered Physician] - 11/21/17 1:40 pm Swati Rios DO [Primary Care Provider] - - Diet and Activity Activity: as per physical therapy, increase activity as tolerated Interval History: Seen and given at bedside. Patient states she had an uneventful night. Complains of general weakness and malaise is not new. Daughter and family at bedside; updated on plan to transfer to [place] emergency department. Patient and family understand plan of care and are in agreement. Hospital course: Ms. Wasserman is a 87 year old female - Time Spent with Patient Total time spent providing and/or coordinating discharge services: - Constitutional Vitals: Temp Pulse Resp BP Pulse Ox 98.0 F 94 16 181/82 95 11/15/17 12:08 11/15/17 12:08 11/15/17 12:08 11/15/17 12:08 11/15/17 12:08 General appearance: Present: cooperative, A&O X 3, pleasant, no acute distress, obese, answers questions appropriately - Head Head exam: Present: atraumatic, normocephalic - Eye Eye exam: Present: PERRL, conjuntiva pink, sclera anicteric Pupils: Present: PERRL - Neck Neck exam general surgery: Present: supple, trachea midline. Absent: lymphadenopathy - Respiratory Respiratory exam: Present: CTAB. Absent: accessory muscle use, rales, rhonchi, wheezes - Cardiovascular Cardiovascular exam: Present: RRR, +S1, +S2. Absent: diastolic murmur, gallop, rubs, systolic murmur - GI/Abdominal GI/Abdominal exam: Present: normal bowel sounds, soft, no peritoneal signs. Absent: distended, tenderness - Extremities Exam Extremities exam: Present: pedal edema, warm, radial pulses palpable and symmetrical. Absent: calf tenderness, cyanotic - Neurological Exam Neurological exam: Present: CN II-XII intact, oriented X3, no focal deficits. Absent: pronater drift, facial droop, speech deficit - Skin Skin exam: Present: dry, intact - VTE Documentation of Mechanical Device: Graduated compression elastic hosiery
[2017-11-15] MEDS: *HR* HYDROcodone/Acet 5/325 mg TABLET PO PRN (14:21)
[2017-11-15 15:39] VITALS: BP 148/61
--- NOTE | 2017-11-15 17:23 | Physician Discharge Referral ---
ExtendedCare Referral Info Transfer To: [facility] Provider in Charge: Cecilia Miner CNP Provider in Charge after Transfer: PCP Institutional Level of Care: Skilled - Diagnosis (1) Lung cancer Status: Chronic (2) Pyelonephritis, acute Status: Acute (3) UTI (urinary tract infection) Status: Acute (4) Sepsis Status: Acute (5) Anemia Status: Acute (6) Pneumonia Status: Ruled-out (7) ADDIS (acute kidney injury) Status: Resolved (8) Fall Status: Acute (9) Hypokalemia Status: Resolved (10) Urinary retention Status: Acute (11) Atrial fibrillation Status: Acute - Transfer Medications Prescriptions: Fluconazole 100 MG/50 ML [Diflucan 100 MG/50 ML] 200 mg IVPB DAILY #3 bag HYDROcodone/Acet 5/325 mg [Polaris 5-325 mg] 1 tab PO Q6H PRN #60 tab PRN Reason: Pain LORazepam [Ativan] 0.5 mg PO Q8H PRN #24 tablet PRN Reason: anxiety, nausea, insomnia Morphine Immed Rel [Morphine Sulfate] 15 mg PO Q2H PRN #30 tab PRN Reason: Pain Dinepddrrdeo-Hcyt-Ssyurrkx,Iso [Zosyn 3.375 gm/50 ml Galaxy] 3.375 gm IV Q8H # 12 froz.piggy Home Medications: Calcium Carbonate/Vitamin D3 [Calcium 600 + D Tablet] 1 each PO DAILY 05/22/15 [ History] Glimepiride [Amaryl] 2 mg PO DAILY 05/22/15 [History] Gluc HCl/Csa/Collagen/Hyalur A [Glucosamine Chondroitin Cap] 1 each PO DAILY 01/01 [History] Lisinopril/Hydrochlorothiazide [Lisinopril-Hctz 20-12.5 mg Tab] 1 each PO BID [History] Metoprolol Tartrate 50 mg PO BID 05/22/15 [History] Multivitamin/Iron/Folic Acid [Centrum Complete Multivit Tab] 1 each PO DAILY 01/01 [History] Simvastatin [Zocor] 20 mg PO HS 05/22/15 [History] Polyethylene Glycol 3350 [MiraLAX] 17 gm PO DAILY PRN 12/10/16 [History] Sertraline [Zoloft] 25 mg PO DAILY #30 tablet 02/21/17 [Rx] Cholecalciferol (D-3) [Vitamin D] 1,000 unit PO BID 02/07/17 [History] Ascorbic Acid [Vitamin C] 1,000 mg PO DAILY 08/21/17 [History] Docusate [Colace] 200 mg PO BID #120 capsule 10/07/17 [Rx] Lactulose 20 gm PO QID PRN #240 ml 10/07/17 [Rx] Aspirin Enteric Coated [Aspirin EC] 81 mg PO DAILY 11/03/17 [History] Dexamethasone [Decadron] 4 mg PO DAILY 11/03/17 [History] Loperamide [Imodium] 2 mg PO PER PKG DI PRN 11/03/17 [History] Omeprazole [PriLOSEC] 20 mg PO DAILY 11/03/17 [History] Fluconazole 100 MG/50 ML [Diflucan 100 MG/50 ML] 200 mg IVPB DAILY #3 bag [Rx] HYDROcodone/Acet 5/325 mg [Polaris 5-325 mg] 1 tab PO Q6H PRN #60 tab 11/15/17 [Rx ] LORazepam [Ativan] 0.5 mg PO Q8H PRN #24 tablet 11/15/17 [Rx] Morphine Immed Rel [Morphine Sulfate] 15 mg PO Q2H PRN #30 tab 11/15/17 [Rx] Jjjacrmyikqe-Icue-Tqbezwzh,Iso [Zosyn 3.375 gm/50 ml Galaxy] 3.375 gm IV Q8H # 12 froz.piggy 11/15/17 [Rx] Allergies/Adverse Reactions: 3 Allergy/AdvReac Type Severity Reaction Status Date / Time Sulfa (Sulfonamide Allergy Unknown Fainting Verified 10/07/17 11:18 Antibiotics) - Respiratory Orders Oxygen / L per min (2) Smoking Cessation: Smoking cessation has been advised. For more information, call the [place] Tobacco Quit Line at 4-146-WPHP-NOW. - Advance Directives Code Status: DNR-Comfort Care - Mobility Orders Chair, Bedrest - Rehabiliation Orders Rehab Orders: Evaluation for Physical Therapy, Evaluation for Occupational Therapy CERTIFICATION: I certify that the transfer of the above named patient to an Extended Care Facility is necessary for the continuing treatment of the diagnosis listed. The above information is true and accurate reflection of patient's current condition. Confidential - Redisclosure prohibited without a patient's written consent.
[2017-11-15] MEDS ORDERED: *HR* HYDROcodone/Acet 5/325 mg TABLET PO ONE (18:07)
== END 2017-11-15 18:55 | DRG 871 ==
LOC: EMEROO 17:17 → 3BNU 17:17
PROVIDERS: ADMIT Internal Medicine; ATTEND Registered Nurse

== ENCOUNTER 2017-12-11 18:28 | Inpatient (IN) ==
[2017-12-11] MEDS ORDERED: 0.9 % Sodium Chloride 1,000 ML IVC ONE (18:32)
[2017-12-11] MEDS ORDERED: *HR* Dextrose 50 % in Water (Syg) 50 ML SYRINGE IVP ONE ×2 (18:32→21:32)
[2017-12-11] MEDS ORDERED: *HR* Dextrose 50 % in Water (Syg) 50 ML SYRINGE ONE (18:33)
--- NOTE | 2017-12-11 18:35 | Emergency Department Note ---
START Narrative - START START: Start note: 87[facility] patient with chronic indwelling Simental catheter via EMS after they responded to the [facility] for "unresponsiveness ". Patient was diabetic and was unresponsive she was given glucagon 2 per EMS and the blood sugar was approximately 41. Patient became more awake and alert. There is been no history of trauma medication changes or fever. Overnight ED attending Dr. Lito Mao and resident aroldo Perez will be here in about 20-25 minutes, and they will assume care and provider and get the history and physical examination and management. Patient is not in extremis at this time is awake and alert supporting her airway. Patient given IV fluids screening labs and amp of D50 chest x-ray and EKG. Patient is in stable condition awaiting further evaluation.
[2017-12-11 18:51] LABS: Basophils % 0.1 %; Eosinophils # 0.1 K/mcL (0.0-0.6); Eosinophils % 0.7 %; Hematocrit 27.6 % (35.3-44.9); Immature Granulocytes % 2.4 % (0-4); Lymphocytes # 0.6 K/mcL (0.6-4.6); Lymphocytes % 4.9 %; Mean Corpuscular Hemoglobin 26.4 pg (28.0-33.3); Mean Corpuscular Volume 91.1 fL (83.0-100.0); Mean Platelet Volume 9.6 fL (9.4-12.4); Monocytes # 0.3 K/mcL (0.0-1.3); Monocytes % 2.7 %; Neutrophils # 11.3 K/mcL (1.6-8.9); Platelet Count 209 K/mcL (140-400); Red Blood Count 3.03 M/mcL (3.82-4.97); Red Cell Distribution Width 17.2 % (11.5-14.5); Segmented Neutrophils % 89.2 %
--- NOTE | 2017-12-11 19:06 | Emergency Department Note ---
Disposition Clinical Impression: Hypoglycemia Anemia Qualifiers: Anemia type: unspecified type Qualified Code(s): D64.9 - Anemia, unspecified UTI (urinary tract infection) Qualifiers: Urinary tract infection type: acute cystitis Hematuria presence: without hematuria Qualified Code(s): N30.00 - Acute cystitis without hematuria Disposition: Admitted As Inpatient Condition: Fair Referrals: Swati Rios DO [Primary Care Provider] - Forms: ED Satisfaction Letter Time of Disposition: 22:31 General Adult HPI - General Chief complaint: ED Altered Mental Status Stated complaint: low blood sugar Time Seen by Provider: 12/11/17 18:31 Source: EMS Mode of arrival: EMS Limitations: age Nursing Notes Reviewed: Yes Vital Signs Reviewed: Yes - History of Present Illness HPI Narrative: 87-year-old female history of diabetes, hypertension presents from [facility] due to decreased mental status. She was found at the nursing facility and had decreased responsiveness. Patient's blood sugar was checked as every 41. Patient received 2 episodes of glucagon and upon arrival repeat blood glucose recheck was in the 30s. Patient received an aspirin D50 at that time. Patient denies any trauma. Patient denies any fevers or cough. Denies any chest pain. Patient is alert and oriented. Patient states that she is at a decreased appetite. Denies any abdominal pain. No nausea vomiting. Much of the history is provided via chart review. Pain Scale: 0 - Related Data Home Medications Medication Instructions Recorded Confirmed Glimepiride [Amaryl] 2 mg PO DAILY 05/22/15 12/11/17 Lisinopril/Hydrochlorothiazide 1 each PO BID 05/22/15 12/11/17 [Lisinopril-Hctz 20-12.5 mg Tab] Metoprolol Tartrate 50 mg PO BID 05/22/15 12/11/17 Multivitamin/Iron/Folic Acid 1 each PO DAILY 05/22/15 12/11/17 [Centrum Complete Multivit Tab] Polyethylene Glycol 3350 [MiraLAX] 17 gm PO DAILY PRN 12/10/16 12/11/17 Aspirin Enteric Coated [Aspirin EC] 81 mg PO DAILY 11/03/17 12/11/17 Loperamide [Imodium] 2 mg PO PER PKG DI PRN 11/03/17 12/11/17 Omeprazole [PriLOSEC] 20 mg PO DAILY 11/03/17 12/11/17 Ascorbic Acid [Vitamin C] 1,000 mg PO DAILY 11/21/17 12/11/17 Calcium Carbonate/Vitamin D3 1 each PO DAILY 11/21/17 12/11/17 [Liquid Calcium 600-Vit D3 Sfgl] Cholecalciferol (D-3) [Vitamin D] 1,000 unit PO BID 11/21/17 12/11/17 Docusate [Colace] 200 mg PO BID 11/21/17 12/11/17 Gluc 2Kcl/Chondr/Maurice Hy/Hy AC 1 each PO DAILY 11/21/17 12/11/17 [Glucosamine & Chondroitin Cap] Simvastatin [Zocor] 20 mg PO HS 11/21/17 12/11/17 Sertraline [Zoloft] 25 mg PO HS 12/11/17 12/11/17 Previous Rx's Medication Instructions Recorded Lactulose 20 gm PO QID PRN #240 ml 10/07/17 HYDROcodone/Acet 5/325 mg [[place] 1 tab PO Q6H PRN #60 tab 11/15/17 5-325 mg] LORazepam [Ativan] 0.5 mg PO Q8H PRN #24 tablet 11/15/17 Morphine Immed Rel [Morphine 15 mg PO Q2H PRN #30 tab 11/15/17 Sulfate] Allergies Allergy/AdvReac Type Severity Reaction Status Date / Time Sulfa (Sulfonamide Allergy Unknown Fainting Verified 12/11/17 18:36 Antibiotics) All systems ED: reviewed and negative except as stated. Constitutional: Denies: fever Cardiovascular: Denies: chest pain, palpitations Respiratory: Denies: cough, dyspnea Gastrointestinal: Denies: abdominal pain, nausea, vomiting Past Medical History - Past Medical History Source: patient Medical history: Reports: cancer, diabetes, hyperlipidemia, hypertension, other Surgical history: Reports: cancer surgery, knee replacement Psychiatric history: Reports: no psych history FRAME TENDER history: Reports: no FRAME TENDER history - Social History Smoking Status: Never smoker Smokeless Tobacco Status: No Alcohol use: Reports: none Drug use: Reports: none Physical Exam - General Limitations: age General appearance: alert, lethargic - Head Head exam: atraumatic, normocephalic, normal inspection - Eye Eye exam: Present: normal appearance, PERRL, EOMI. Absent: miosis - ENT ENT exam: mucous membranes dry - Neck Neck exam: Present: normal inspection, trachea midline - Chest Chest inspection: Present: normal inspection, symmetric chest wall rise - Respiratory Respiratory exam: Present: other (Diffusely diminished throughout). Absent: normal lung sounds bilaterally, respiratory distress, prolonged expiratory phase - Cardiovascular Cardiovascular exam: Present: regular rate, normal rhythm. Absent: systolic murmur - Abdominal Exam Abdominal exam: Present: soft, Non-Tender. Absent: guarding, rebound - Extremities Exam Extremities exam: Present: normal inspection, pedal edema (Trace bilateral.) - Back Exam Back exam: Present: normal inspection - Neurological Exam Neurological exam: Present: alert, oriented X3, CN II-XII intact - Expanded Neurological Exam Patient oriented to: Present: person, place, time Speech: Present: fluid speech Cranial nerves: EOM function (II, III, IV, ): Normal, facial sensation (V): Normal, facial palsy (VII): Normal, spinal accessory function (XI): Normal, tongue deviation (XII): Normal Coma Scale Eye Opening: Spontaneous Coma Scale Motor Response: Obeys Commands Coma Scale Verbal Response: Oriented Coma Scale Total: 15 - Psychiatric Psychiatric exam: Present: normal affect, normal mood - Skin Skin exam: Present: warm, dry, intact, normal color - Other Other exam information: Does have an indwelling Simental catheter placed which appears grossly contaminated. Will replace the Simental and gather a urine specimen. Course Course Narrative: Patient was seen and examined. Patient appears to be in no acute distress. Patient's workup was initiated by the primary provider. Patient did present from a nursing facility with an episode of hypoglycemia. Looking at the medication list it does appear that the patient is on long-acting oral sulfonylureas. Patient had multiple blood glucose checks which continued to low. Patient was given a bolus of 0.9. Patient was started on D5 half-normal. Patient will also get basic labs as well as urinalysis chest x-ray and a head CT. Patient also get a troponin in the EKG. Disposition likely admission. - Reevaluation(s) Reevaluation #1: Patient seen and examined. Patient appears resting comfortably. Patient's aware that she will be admitted. Time: 23:07 Reevaluation #2: Patient's repeat blood sugar 73. Resting comfortably. Time: 23:10 Vital Signs Temperature 97.6 F 02/22/18 18:31 Pulse Rate 87 12/11/17 18:31 Respiratory Rate 16 12/11/17 18:31 Blood Pressure 111/50 12/11/17 18:31 O2 Sat by Pulse Oximetry 89 12/11/17 18:31 Temperature 97.6 F 12/11/17 18:31 Pulse Rate 97 12/11/17 22:00 Respiratory Rate 20 12/11/17 21:00 Blood Pressure 116/65 12/11/17 22:00 O2 Sat by Pulse Oximetry 97 12/11/17 22:00 Oxygen Delivery Oxygen Delivery Nasal Cannula Medical Decision Making - MDM Narrative Medical decision making narrative: Patient presents with recurrent hypoglycemia. The patient had multiple point care glucoses measured in the ER which were abnormally low. Patient is on orals sulfonylurea. Patient does not provide very thorough history. Patient does have evidence of infection with likely cystitis with gross indwelling Simental catheter. The catheter was replaced with a UA pending. Patient did have cystitis on CT abdomen and pelvis with given mild leukocytosis and slight lactic acidosis the patient was treated with IV fluids as well as antibiotics. Patient got a gram of Rocephin. Patient was also placed on D5 half-normal at 75 given her recurrent hypoglycemia. Patient's head CT shows no evidence of acute intracranial pathology. Patient will be admitted to the hospital service for further evaluation and management. - Lab Data Lab results reviewed: Yes I reviewed the patient's lab results. Result diagrams: 12/11/17 18:44 12/11/17 18:44 Lab Results 12/11/17 12/11/17 12/11/17 Range/Units 18:44 18:44 18:44 WBC 12.6 H (4.3-11.1) K/mcL RBC 3.03 L (3.82-4.97) M/mcL Hgb 8.0 L (11.5-15.4) g/dL Hct 27.6 L (35.3-44.9) % MCV 91.1 (83.0-100.0) fL MCH 26.4 L (28.0-33.3) pg MCHC 29.0 L (31.6-35.5) g/dL RDW 17.2 H (11.5-14.5) % Plt Count 209 (140-400) K/mcL MPV 9.6 (9.4-12.4) fL Immature Gran % 2.4 (0-4) % Seg Neutrophils % 89.2 % Lymphocytes % 4.9 % Monocytes % 2.7 % Eosinophils % 0.7 % Basophils % 0.1 % Neutrophils # 11.3 H (1.6-8.9) K/mcL Lymphocytes # 0.6 (0.6-4.6) K/mcL Monocytes # 0.3 (0.0-1.3) K/mcL Eosinophils # 0.1 (0.0-0.6) K/mcL Basophils # 0.0 (0.0-0.2) K/mcL Sodium 138 (136-145) mEq/L Potassium 3.8 (3.5-5.1) mEq/L Chloride 103 (98-107) mEq/L Carbon Dioxide 29 (23-29) mEq/L BUN 46 H (8-23) mg/dL Creatinine 0.72 (0.60-1.20) mg/dL Est GFR ( Amer) > 60 (> 60) Est GFR (Non-Af Amer) > 60 (> 60) BUN/Creatinine Ratio 64 H (6-26) Glucose 181 H (70-105) mg/dL Calculated Osmolality 302 H (280-300) Lactic Acid (0.5-2.2) mmol/L Calcium 7.7 L (8.6-10.3) mg/dL Total Bilirubin 0.2 L (0.3-1.0) mg/dL Direct Bilirubin 0.1 (0.0-0.2) mg/dL Indirect Bilirubin 0.1 (0.0-1.2) mg/dL AST 57 H (13-39) Units/L ALT 33 (7-52) Units/L Alkaline Phosphatase 64 (34-104) Units/L Troponin I < 0.03 (< 0.04) ng/mL Serum Total Protein 4.3 L (6.4-8.9) g/dL Albumin 2.0 L (3.5-5.7) g/dL Globulin 2.3 L (2.4-3.5) g/dL Albumin/Globulin Ratio 0.9 L (1.1-2.2) Urine Color (Yellow) Urine Clarity (Clear) Urine pH (5.0-8.0) pH Units Ur Specific [place] (1.010-1.025) Urine Protein (Neg-Trace) mg/dL Urine Glucose (UA) (Normal) mg/dL Urine Ketones (Negative) mg/dL Urine Blood (Negative) Urine Nitrite (Negative) Urine Bilirubin (Negative) Urine Urobilinogen (Normal) mg/dL Ur Leukocyte Esterase (Negative) Urine Microscopic RBC (0-3) per hpf Urine Microscopic WBC (0-3) per hpf Ur Squamous Epith Cells (None-Few) per lpf Urine Bacteria (None-Few) per hpf Hyaline Casts (None-Few) per lpf Granular Casts (None Seen) per lpf 12/11/17 12/11/17 Range/Units 19:40 22:00 WBC (4.3-11.1) K/mcL RBC (3.82-4.97) M/mcL Hgb (11.5-15.4) g/dL Hct (35.3-44.9) % MCV (83.0-100.0) fL MCH (28.0-33.3) pg MCHC (31.6-35.5) g/dL RDW (11.5-14.5) % Plt Count (140-400) K/mcL MPV (9.4-12.4) fL Immature Gran % (0-4) % Seg Neutrophils % % Lymphocytes % % Monocytes % % Eosinophils % % Basophils % % Neutrophils # (1.6-8.9) K/mcL Lymphocytes # (0.6-4.6) K/mcL Monocytes # (0.0-1.3) K/mcL Eosinophils # (0.0-0.6) K/mcL Basophils # (0.0-0.2) K/mcL Sodium (136-145) mEq/L Potassium (3.5-5.1) mEq/L Chloride (98-107) mEq/L Carbon Dioxide (23-29) mEq/L BUN (8-23) mg/dL Creatinine (0.60-1.20) mg/dL Est GFR ( Amer) (> 60) Est GFR (Non-Af Amer) (> 60) BUN/Creatinine Ratio (6-26) Glucose (70-105) mg/dL Calculated Osmolality (280-300) Lactic Acid 2.3 H (0.5-2.2) mmol/L Calcium (8.6-10.3) mg/dL Total Bilirubin (0.3-1.0) mg/dL Direct Bilirubin (0.0-0.2) mg/dL Indirect Bilirubin (0.0-1.2) mg/dL AST (13-39) Units/L ALT (7-52) Units/L Alkaline Phosphatase (34-104) Units/L Troponin I (< 0.04) ng/mL Serum Total Protein (6.4-8.9) g/dL Albumin (3.5-5.7) g/dL Globulin (2.4-3.5) g/dL Albumin/Globulin Ratio (1.1-2.2) Urine Color Yellow (Yellow) Urine Clarity Cloudy A (Clear) Urine pH 5.5 (5.0-8.0) pH Units Ur Specific [place] 1.023 (1.010-1.025) Urine Protein 30 H (Neg-Trace) mg/dL Urine Glucose (UA) Normal (Normal) mg/dL Urine Ketones Negative (Negative) mg/dL Urine Blood Large H (Negative) Urine Nitrite Negative (Negative) Urine Bilirubin Negative (Negative) Urine Urobilinogen Normal (Normal) mg/dL Ur Leukocyte Esterase Small H (Negative) Urine Microscopic RBC 15-30 H (0-3) per hpf Urine Microscopic WBC 15-30 H (0-3) per hpf Ur Squamous Epith Cells Many H (None-Few) per lpf Urine Bacteria None Seen (None-Few) per hpf Hyaline Casts Few (None-Few) per lpf Granular Casts Few H (None Seen) per lpf - Radiology Data Radiology results reviewed: Yes I reviewed the patient's radiology results. Chest X-Ray 12/11/17 18:32 IMPRESSION: Low lung volume study. No definite significant change or acute process. Stable focal opacity in the right lower paratracheal stripe region. D/ / 12/11/2017 19:01:00 Oleksandr Marinelli MD / chaitanya Interpreting Provider: Oleksandr Marinelli MD Head CT 12/11/17 19:03 IMPRESSION: 1. No acute intracranial abnormality. 2. Mild chronic small vessel ischemic changes. D/ / Codey Clark MD / Codey Clark MD Interpreting Provider: Codey Clark MD Abdomen/Pelvis CT 12/11/17 19:43 IMPRESSION: 1. Moderate bladder wall thickening with pericystic inflammatory changes suggesting a cystitis. Small quantity of air within the bladder, possibly iatrogenic or related to infection. 2. Anasarca with ascites, increased compared to the previous study. 3. No evidence of bowel obstruction or obstructive uropathy. 4. Resolution of bilateral pleural effusions. Interstitial changes at the lung bases suggesting possible infiltrate. 5. Re-demonstration of osseous metastatic disease involving the right hemipelvis with soft tissue extension into the iliopsoas and gluteal musculature. No evidence of pathologic fracture. D/ / 12/11/2017 20:43:57 Edilson Steven MD / malaika Interpreting Provider: Edilson Steven MD - EKG Data EKG #1 EKG attestation: Yes I reviewed and interpreted this EKG. EKG shows normal: sinus rhythm Rate: tachycardia Rhythm: NSR [place]/QRS: normal Interpretation: no acute changes, nonspecific ST-T wave changes S.B.A.R. - S.B.A.R. Situation: Demographics Background: Presenting Complaint Assessment: Vital Signs, Course and respsone to treatment, Patient/Family Expectation Recommendation: Barrier(s) to disposition, Recommendation based on pending studies, treatments, or consults S.B.A.R. Report Given to: Dr. Stafford S.B.A.RBelem Repor Time: 22:53 Attestation Statement - Attestation Attestation: I, Lito Mao DO, examined this patient [id number] and my medical decision-making was reviewed with Dr. Felipe Perez, Resident Physician. I agree with the documented findings, disposition and treatment plan as described except to the extent set forth below. Please see my progress notes for details. 87-year-old female presents emergency room with complaint of hypoglycemic event and altered mentation. Patient has unknown infectious etiology versus have a Simental catheter in place. Denies any trauma or injury. She answers questions appropriately on arrival. EMS provided 2 units of Glucagon in-transit as well as dextrose. Repeat Accu-Chek was appropriate. Vital signs been stable. Infectious etiology service will be addressing this time secondary to patient being on long-acting medications. Patient was seen to have CT of the abdomen and chest x-ray and urinalysis as tolerated. Follow catheter was not effective and appeared to be in place for a long period of time. During attempts to replace the Simental catheter patient started to bleed profusely from the eye the urethra or vaginal area. Patient will have evaluation by myself resident physician for catheter placement. Otherwise her lungs. Clear abdomen is soft no guarding or rigidity no peritoneal symptoms. Patient does have stable presentation this point. Fluids and IV medications will be given. Detailed evaluation will be completed this time. Disposition to be determined. Patient will mostly admission once the workup is established. A 35 minutes of critical care provider as patient's treatment course secondary to multifactorial resuscitation and management. Each of recommendation of physical exam, medical intervention, medical decision-making and disposition and the resident physician's note. 2200 Patient had Simental catheter placed by myself in the emergency room. Antibiotic regiment for cystitis is not established this time Rocephin was given. CT imaging confirmed cystitis on evaluation otherwise negative workup at that point. Glucose was 63 and on repeat and dextrose his abdomen infused to D5 normal saline. Another amp of dextrose was given. Hospitalist will be contacted for admission process at this time. Patient otherwise clinically stable. Appears to be hypoglycemia secondary to urinary tract infection. Lactic acid was slightly elevated at 2.3. Patient did not meet sepsis recall but is being treated with fluid resuscitation and antibiotics as appropriate.
[2017-12-11 19:11] LABS: Alanine Aminotransferase 33 Units/L (7-52); Albumin/Globulin Ratio 0.9 (1.1-2.2); Alkaline Phosphatase 64 Units/L (34-104); Aspartate Amino Transferase 57 Units/L (13-39); BUN/Creatinine Ratio 64 (6-26); Bilirubin,Direct 0.1 mg/dL (0.0-0.2); Bilirubin,Indirect 0.1 mg/dL (0.0-1.2); Bilirubin,Total 0.2 mg/dL (0.3-1.0); Blood Urea Nitrogen 46 mg/dL (8-23); Calcium 7.7 mg/dL (8.6-10.3); Carbon Dioxide 29 mEq/L (23-29); Chloride 103 mEq/L (98-107); Globulin 2.3 g/dL (2.4-3.5); Glucose 181 mg/dL (70-105); Osmolality,Calculated 302 (280-300); Potassium 3.8 mEq/L (3.5-5.1); Sodium 138 mEq/L (136-145); Total Protein 4.3 g/dL (6.4-8.9); eGFR For African Americans > 60 (> 60); eGFR For Non-African Americans > 60 (> 60)
[2017-12-11] MEDS ORDERED: D5% in 0.45% NACL 1,000 ML IVC SCH (19:15)
[2017-12-11] MEDS ORDERED: Lidocaine Jelly 6ml 1 APPL/6 ML JEL.PF.APP MM ONE (19:24)
[2017-12-11] MEDS ORDERED: cefTRIAXone 1,000 MG in Water for inj. (sterile) 20 ML 10 ML IVP ONE (21:24)
[2017-12-11 22:22] LABS: Bilirubin,Urine Negative (Negative); Blood,Urine Large (Negative); Clarity,Urine Cloudy (Clear); Color,Urine Yellow (Yellow); Glucose,Urine (UA) Normal (Normal); Ketones,Urine Negative (Negative); Leukocyte Esterase,Urine Small (Negative); Nitrite,Urine Negative (Negative); PH,Urine 5.5 pH Units (5.0-8.0); Protein,Urine 30 mg/dL (Neg-Trace); Specific Gravity,Urine 1.023 (1.010-1.025); Urobilinogen,Urine Normal (Normal)
[2017-12-11 22:27] LABS: Bacteria,Urine None Seen per hpf (None-Few); Squamous Epithelial Cell,Urine Many per lpf (None-Few); WBC,Urine 15-30 per hpf (0-3)
[2017-12-11 22:35] LABS: Granular Casts,Urine Few per lpf (None Seen); Hyaline Casts,Urine Few per lpf (None-Few); RBC,Urine 15-30 per hpf (0-3)
[2017-12-12] MEDS ORDERED: *HR* LORazepam 0.5 MG TABLET PO PRN (00:15)
[2017-12-12] MEDS ORDERED: *HR* HYDROcodone/Acet 5/325 mg TABLET PO PRN ×2 (00:15→04:13)
[2017-12-12] MEDS ORDERED: *HR* Morphine Immed Rel 15 MG TABLET PO PRN ×2 (00:15→04:11)
[2017-12-12] MEDS ORDERED: Lactulose Oral Soln 20 GM/30 ML UDC PO PRN (00:15)
[2017-12-12] MEDS ORDERED: Benzonatate 100 MG CAPSULE PO PRN (00:19)
[2017-12-12] MEDS ORDERED: *HR* Dextrose 50 % in Water (Syg) 50 ML SYRINGE IVP ONE (00:27)
[2017-12-12] MEDS ORDERED: *HR* Dextrose 50 % in Water (Syg) 50 ML SYRINGE ONE (00:28)
[2017-12-12] MEDS ORDERED: Albumin 25% 25gram/100mL 25 GM/100 ML IV.SOLN IVPB ONE (00:33)
--- NOTE | 2017-12-12 00:38 | Internal Med History&Physical ---
Date of Encounter: 12/12/17 Time of Encounter: 23:55 Assessment and Plan (1) Hypoglycemia Current visit: Yes Status: Acute Refractory hypoglycemia Give 1/2 Amp D50 now Continue D50.5 NS at 75ml/hr AccuChecks q4 hrs Neuro checks q4 hrs (2) Pneumonia Current visit: No Status: Acute Possible infiltrate on CT-Abd/pelvis with coarse lung sounds at both bases Empirically start Vanc plus Zosyn Blood cultures pending Recent PNA DuoNebs Muccinex and Tessalon Qualifiers: Pneumonia type: due to unspecified organism Laterality: bilateral Lung location: lower lobe of lung Qualified Code(s): J18.9 - Pneumonia, unspecified organism (3) UTI (urinary tract infection) Current visit: Yes Status: Acute Possible UTI Given Rocephin in ER Abx changed to Zosyn and Vanc Recent Enterococcus, Klebsiella and P. aerug. UTI/Pyelo Qualifiers: Urinary tract infection type: acute cystitis Hematuria presence: without hematuria Qualified Code(s): N30.00 - Acute cystitis without hematuria (4) Atrial fibrillation Current visit: No Status: Acute Continue Metoprolol Not on A/C therapy Qualifiers: Atrial fibrillation type: paroxysmal Qualified Code(s): I48.0 - Paroxysmal atrial fibrillation (5) Diabetes mellitus Current visit: No Status: Chronic Continue holding antihyperglycemic agents while hypoglycemic AccuChecks as noted above Qualifiers: Diabetes mellitus type: type 2 Diabetes mellitus complication status: with other specified complication Diabetes mellitus skilled nursing insulin use: without intermodal truck driver use Qualified Code(s): E11.69 - Type 2 diabetes mellitus with other specified complication (6) Metastatic primary lung cancer Current visit: No Status: Chronic 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 She was found at the nursing facility and had decreased responsiveness. Patient's blood sugar was 41. Patient received 2 treatments of glucagon and upon arrival repeat blood glucose recheck was in the 30s. She is currently receiving D51/2NS at 75 ml hour. She has mild anasarca and was recently discharged following an admission for UTI/ pyelonephritis. Patient denies any fevers or cough. Denies any chest pain. Patient is alert and oriented. Patient states that she is at a decreased appetite. Denies any abdominal pain. No nausea vomiting. Her CT-Heas did not show acute pathology. Her CT-Abd/Pelvis showed bladder wall thickening and pericystic inflammatory changes . Her AFib is now better rate controlled after IVFs were given in the ER. Past Med Surg Social Fam HX - Past Medical History Medical history: cancer, diabetes, hyperlipidemia, hypertension, other Psychiatric history: no psych history - Past Surgical History Surgical History: cancer surgery, knee replacement - Social History Smoking Status: Never smoker Smokeless Tobacco Status: No Alcohol use: none Drug use: none - Family History Mother Living Status: Hx Family Cardiac Disorders: Yes (cabg, heart failure) Hx Family Respiratory Disorders: Yes Father Living Status: Hx Family Cancer: Yes (colon) Internal Medicine - H&P: Meds Glimepiride [Amaryl] 2 mg PO DAILY 05/22/15 [History] Lisinopril/Hydrochlorothiazide [Lisinopril-Hctz 20-12.5 mg Tab] 1 each PO BID [History] Metoprolol Tartrate 50 mg PO BID 05/22/15 [History] Multivitamin/Iron/Folic Acid [Centrum Complete Multivit Tab] 1 each PO DAILY 01/01 [History] Polyethylene Glycol 3350 [MiraLAX] 17 gm PO DAILY PRN 12/10/16 [History] Lactulose 20 gm PO QID PRN #240 ml 10/07/17 [Rx] Aspirin Enteric Coated [Aspirin EC] 81 mg PO DAILY 11/03/17 [History] Loperamide [Imodium] 2 mg PO PER PKG DI PRN 11/03/17 [History] Omeprazole [PriLOSEC] 20 mg PO DAILY 11/03/17 [History] HYDROcodone/Acet 5/325 mg [[place] 5-325 mg] 1 tab PO Q6H PRN #60 tab 11/15/17 [Rx ] LORazepam [Ativan] 0.5 mg PO Q8H PRN #24 tablet 11/15/17 [Rx] Morphine Immed Rel [Morphine Sulfate] 15 mg PO Q2H PRN #30 tab 11/15/17 [Rx] Ascorbic Acid [Vitamin C] 1,000 mg PO DAILY 11/21/17 [History] Calcium Carbonate/Vitamin D3 [Liquid Calcium 600-Vit D3 Sfgl] 1 each PO DAILY [History] Cholecalciferol (D-3) [Vitamin D] 1,000 unit PO BID 11/21/17 [History] Docusate [Colace] 200 mg PO BID 11/21/17 [History] Gluc 2Kcl/Chondr/Maurice Hy/Hy AC [Glucosamine & Chondroitin Cap] 1 each PO DAILY 11/21/17 [History] Simvastatin [Zocor] 20 mg PO HS 11/21/17 [History] Sertraline [Zoloft] 25 mg PO HS 12/11/17 [History] 3 Allergy/AdvReac Type Severity Reaction Status Date / Time Sulfa (Sulfonamide Allergy Unknown Fainting Verified 12/11/17 18:36 Antibiotics) All Systems PM: A 10-system review of systems was performed and is negative for pertinent findings except as documented above in the HPI. - Constitutional Vitals: Temp Pulse Resp BP Pulse Ox 97.4 F L 117 17 98/62 99 12/12/17 00:19 12/12/17 00:19 12/12/17 00:19 12/12/17 00:19 12/12/17 00:19 General appearance: Present: A&O X 2, mild distress, pleasant, obese. Absent: answers questions appropriately - Head Head exam: Present: atraumatic, normocephalic - Eye Eye exam: Present: PERRL, conjuntiva pink, sclera anicteric Pupils: Present: PERRL - Neck Neck exam general surgery: Present: supple, trachea midline. Absent: lymphadenopathy - Respiratory Respiratory exam: Present: decreased breath sounds, rales. Absent: accessory muscle use, CTAB, respiratory distress, wheezes - Cardiovascular Cardiovascular exam: Present: irregular rhythm, +S1, +S2, tachycardia. Absent: diastolic murmur, gallop, RRR, rubs, systolic murmur - GI/Abdominal GI/Abdominal exam: Present: normal bowel sounds, soft, no peritoneal signs. Absent: distended, guarding, rebound, rigid, tenderness - Extremities Exam Extremities exam: Present: pedal edema, warm, radial pulses palpable and symmetrical. Absent: calf tenderness, cyanotic, mottling, tenderness - Neurological Exam Neurological exam: Present: CN II-XII intact, oriented X3, no focal deficits. Absent: pronater drift, facial droop, speech deficit - Skin Skin exam: Present: diaphoretic, intact, warm. Absent: cyanosis Internal Med - H&P Results - Labs CBC & Chem 7: 12/11/17 18:44 12/11/17 18:44
[2017-12-12] MEDS ORDERED: Cefepime HCl 1,000 MG in Water for inj. (sterile) 20 ML 10 ML IVPB SCH (06:00)
[2017-12-12] MEDS ORDERED: Dextrose 50 % in Water (Vial) 100 ML in D5% in 0.45% NACL 1,000 ML IVC SCH (06:30)
[2017-12-12] MEDS: Lisinopril-HCTZ 20-12.5mg TABLET PO SCH ×2 (09:00→20:24)
[2017-12-12 09:39] LABS: Basophils % 0.1 %; Eosinophils # 0.1 K/mcL (0.0-0.6); Eosinophils % 0.5 %; Hematocrit 26.8 % (35.3-44.9); Hemoglobin 7.9 g/dL (11.5-15.4); Immature Granulocytes % 1.9 % (0-4); Lymphocytes # 1.2 K/mcL (0.6-4.6); Lymphocytes % 8.3 %; Mean Corpuscular HGB Conc 29.5 g/dL (31.6-35.5); Mean Corpuscular Hemoglobin 26.7 pg (28.0-33.3); Mean Corpuscular Volume 90.5 fL (83.0-100.0); Mean Platelet Volume 9.6 fL (9.4-12.4); Monocytes # 0.5 K/mcL (0.0-1.3); Monocytes % 3.4 %; Nucleated Red Blood Cells 0.2 /100 WBC (0); Platelet Count 213 K/mcL (140-400); Red Blood Count 2.96 M/mcL (3.82-4.97); Red Cell Distribution Width 17.1 % (11.5-14.5); Segmented Neutrophils % 85.8 %
--- NOTE | 2017-12-12 09:40 | Electrocardiograph Report ---
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
[2017-12-12 09:49] LABS: BUN/Creatinine Ratio 55 (6-26); Blood Urea Nitrogen 47 mg/dL (8-23); Calcium 7.7 mg/dL (8.6-10.3); Carbon Dioxide 26 mEq/L (23-29); Chloride 105 mEq/L (98-107); Glucose 82 mg/dL (70-105); Osmolality,Calculated 301 (280-300); Potassium 3.9 mEq/L (3.5-5.1); Sodium 140 mEq/L (136-145); eGFR For African Americans > 60 (> 60); eGFR For Non-African Americans > 60 (> 60)
[2017-12-12 09:57] LABS: Platelet Estimate Normal (Normal)
[2017-12-12] MEDS: Aspirin Enteric Coated 81 MG Tablet PO SCH (10:12)
[2017-12-12] MEDS: Multivit/Ca/Min/Fe/FA 1 TAB TABLET PO SCH (10:12)
[2017-12-12] MEDS: Cholecalciferol (D-3) 1,000 UNIT TABLET PO SCH ×2 (10:12→20:24)
[2017-12-12] MEDS: Furosemide 40 MG/4 ML VIAL IVP SCH ×2 (10:12→16:52)
[2017-12-12] MEDS: Ascorbic Acid 500 MG TABLET PO SCH (10:13)
[2017-12-12] MEDS: D5% in 0.45% NACL 1,000 ML IVC SCH (13:44)
--- NOTE | 2017-12-12 13:56 | Internal Med Progress Note ---
Date of Encounter: 12/12/17 Time of Encounter: 09:50 - Assessment and plan (1) Acute respiratory failure with hypoxia Current Visit: Yes Status: Acute Assessment and plan: Patient remains on supplemental oxygen. He was weaned down to 3 L. We will continue to wean FiO2 as tolerated. (2) Pneumonia Current Visit: Yes Status: Suspected Assessment and plan: Being treated for healthcare associated pneumonia. Follow culture results. So far no growth. Continue broad-spectrum antibiotics. WBC count remains elevated. Qualifiers: Pneumonia type: due to methicillin-resistant Staphylococcus aureus (MRSA) Laterality: bilateral Lung location: lower lobe of lung Qualified Code(s): J15.212 - Pneumonia due to Methicillin resistant Staphylococcus aureus (3) Atrial fibrillation Current Visit: Yes Status: Acute Assessment and plan: Uncontrolled. Likely due to hypoxia. Continue Metoprolol. Monitor with telemetry. If persistently in RVR, will place patient on intravenous Cardizem drip if blood pressure tolerates. Qualifiers: Atrial fibrillation type: paroxysmal Qualified Code(s): I48.0 - Paroxysmal atrial fibrillation (4) Diabetes mellitus Current Visit: Yes Status: Chronic Assessment and plan: Hypoglycemia improving. Patient is on D5 1/2 NS. Tolerating diet well. Continue to monitor blood sugars closely. Holding all anti-glycemic agents. Qualifiers: Diabetes mellitus type: type 2 Diabetes mellitus complication status: with hypoglycemia Diabetes mellitus complication detail: without coma Diabetes mellitus half-way insulin use: without supervisor intermediates use Qualified Code(s): E11.649 - Type 2 diabetes mellitus with hypoglycemia without coma (5) Hypoglycemia Current Visit: Yes Status: Acute Assessment and plan: Improving. Continue D5 half and is for now. Will stop once blood sugars remain normal. (6) Metastatic primary lung cancer Current Visit: Yes Status: Chronic Assessment and plan: With metastasis to bone. Continue supportive care and pain control. Qualifiers: Laterality: right Qualified Code(s): C34.91 - Malignant neoplasm of unspecified part of right bronchus or lung (7) UTI (urinary tract infection) Current Visit: Yes Status: Acute Assessment and plan: Patient is receiving antibiotics at this time. Qualifiers: Urinary tract infection type: acute cystitis Hematuria presence: without hematuria Qualified Code(s): N30.00 - Acute cystitis without hematuria (8) DVT prophylaxis Current Visit: Yes Status: Acute Assessment and plan: With subcutaneous heparin - Subjective Interval history: Patient is sitting up in bed. Complains of pain between her shoulder blades which began earlier this morning. It improved when she was her bed was lowered. She denies any chest pain. No nausea or vomiting. She did eat some breakfast this morning. - Constitutional Vitals: Temp Pulse Resp BP Pulse Ox 97.8 F 118 18 102/61 95 12/12/17 11:37 12/12/17 11:37 12/12/17 11:37 12/12/17 11:37 12/12/17 11:37 General appearance: Present: A&O X 2, mild distress, pleasant, obese, answers questions appropriately - Neck Neck exam general surgery: Present: supple, trachea midline. Absent: lymphadenopathy - Respiratory Respiratory exam: Present: CTAB. Absent: accessory muscle use, rales, rhonchi, wheezes - Cardiovascular Cardiovascular exam: Present: RRR, +S1, +S2. Absent: diastolic murmur, gallop, rubs, systolic murmur - GI/Abdominal GI/Abdominal exam: Present: normal bowel sounds, soft, no peritoneal signs. Absent: distended, tenderness - Extremities Exam Extremities exam: Present: pedal edema (Bilateral 3+ pitting edema), warm, radial pulses palpable and symmetrical. Absent: calf tenderness, cyanotic - Neurological Exam Neurological exam: Present: CN II-XII intact, oriented X3, no focal deficits. Absent: facial droop, speech deficit Internal Medicine: Result - Labs CBC & Chem 7: 12/12/17 09:11 12/12/17 09:11 Labs: Short CBC 12/12/17 Range/Units 09:11 WBC 14.0 H (4.3-11.1) K/mcL Hgb 7.9 L (11.5-15.4) g/dL Hct 26.8 L (35.3-44.9) % Plt Count 213 (140-400) K/mcL Neutrophils # 12.0 H (1.6-8.9) K/mcL BMP 12/12/17 09:11 Sodium 140 Potassium 3.9 Chloride 105 Carbon Dioxide 26 BUN 47 H Creatinine 0.85 Glucose 82 Calcium 7.7 L Consult Discharge Plan - Plan Referrals: Swati Rios DO [Primary Care Provider] - (patient will follow up with [facility])
[2017-12-12] MEDS: *HR* Morphine Immed Rel 30 MG TABLET PO PRN ×2 (16:53→20:24)
[2017-12-12] MEDS: *HR* Heparin 5,000 UNIT/ML VIAL SQ SCH (17:00)
[2017-12-13] MEDS: D5% in 0.45% NACL 1,000 ML IVC SCH ×2 (01:22→03:41)
[2017-12-13 03:57] LABS: Basophils % 0.2 %; Eosinophils # 0.1 K/mcL (0.0-0.6); Eosinophils % 0.7 %; Hematocrit 24.8 % (35.3-44.9); Hemoglobin 7.3 g/dL (11.5-15.4); Immature Granulocytes % 1.8 % (0-4); Lymphocytes # 1.4 K/mcL (0.6-4.6); Lymphocytes % 7.7 %; Mean Corpuscular HGB Conc 29.4 g/dL (31.6-35.5); Mean Corpuscular Hemoglobin 26.7 pg (28.0-33.3); Mean Corpuscular Volume 90.8 fL (83.0-100.0); Mean Platelet Volume 9.8 fL (9.4-12.4); Monocytes # 0.4 K/mcL (0.0-1.3); Monocytes % 2.2 %; Neutrophils # 15.7 K/mcL (1.6-8.9); Platelet Count 196 K/mcL (140-400); Red Blood Count 2.73 M/mcL (3.82-4.97); Red Cell Distribution Width 17.2 % (11.5-14.5); Segmented Neutrophils % 87.4 %
[2017-12-13 04:13] LABS: BUN/Creatinine Ratio 56 (6-26); Blood Urea Nitrogen 50 mg/dL (8-23); Calcium 7.5 mg/dL (8.6-10.3); Carbon Dioxide 25 mEq/L (23-29); Chloride 103 mEq/L (98-107); Glucose 90 mg/dL (70-105); Osmolality,Calculated 299 (280-300); Potassium 4.2 mEq/L (3.5-5.1); Sodium 138 mEq/L (136-145); eGFR For African Americans > 60 (> 60); eGFR For Non-African Americans > 60 (> 60)
[2017-12-13] MEDS: *HR* Heparin 5,000 UNIT/ML VIAL SQ SCH ×2 (06:15→16:20)
[2017-12-13 06:33] LABS: Hypochromasia Present (Not Present); Platelet Estimate Normal (Normal)
--- NOTE | 2017-12-13 07:43 | Internal Med Progress Note ---
Date of Encounter: 12/13/17 Time of Encounter: 12:17 - Assessment and plan (1) Acute respiratory failure with hypoxia Current Visit: Yes Status: Acute Assessment and plan: Continue O2 supplementation and wean as tolerated. (2) Pneumonia Current Visit: Yes Status: Suspected Assessment and plan: Leukocytosis persists. We will continue broad-spectrum antibiotics for now. We will add levofloxacin. Follow culture results. Qualifiers: Pneumonia type: due to methicillin-resistant Staphylococcus aureus (MRSA) Laterality: bilateral Lung location: lower lobe of lung Qualified Code(s): J15.212 - Pneumonia due to Methicillin resistant Staphylococcus aureus (3) Atrial fibrillation Current Visit: Yes Status: Acute Assessment and plan: Rate controlled. Not on anticoagulation likely due to chronic anemia. Qualifiers: Atrial fibrillation type: paroxysmal Qualified Code(s): I48.0 - Paroxysmal atrial fibrillation (4) Diabetes mellitus Current Visit: Yes Status: Chronic Assessment and plan: No longer hypoglycemic. We will continue to monitor blood sugars. Qualifiers: Diabetes mellitus type: type 2 Diabetes mellitus complication status: with hypoglycemia Diabetes mellitus complication detail: without coma Diabetes mellitus assistant terminal manager insulin use: without assistant terminal manager use Qualified Code(s): E11.649 - Type 2 diabetes mellitus with hypoglycemia without coma (5) Hypoglycemia Current Visit: Yes Status: Resolved (6) Metastatic primary lung cancer Current Visit: Yes Status: Chronic Assessment and plan: Follow-up outpatient with oncology. Could be contributing to her hypoxia. Qualifiers: Laterality: right Qualified Code(s): C34.91 - Malignant neoplasm of unspecified part of right bronchus or lung (7) UTI (urinary tract infection) Current Visit: Yes Status: Acute Assessment and plan: Suspected. Continue broad-spectrum antibiotics. Qualifiers: Urinary tract infection type: acute cystitis Hematuria presence: without hematuria Qualified Code(s): N30.00 - Acute cystitis without hematuria (8) DVT prophylaxis Current Visit: Yes Status: Acute Assessment and plan: With subcutaneous heparin (9) Anemia Current Visit: Yes Status: Acute Assessment and plan: Acute on chronic. Patient with underlying lung cancer. We will transfuse 1 unit packed red blood cells. Monitor blood counts closely. Also check stools for occult blood. Qualifiers: Anemia type: unspecified type Qualified Code(s): D64.9 - Anemia, unspecified - Subjective Interval history: Patient is awake and alert. Appears comfortable. Denies any pain at this time. Remains on 3 L O2 supplementation via nasal cannula. No fever reported overnight. - Constitutional Vitals: Temp Pulse Resp BP Pulse Ox 97.6 F 79 16 92/54 97 12/13/17 07:31 12/13/17 07:31 12/13/17 07:31 12/13/17 07:31 12/13/17 07:31 General appearance: Present: A&O X 2, mild distress, pleasant, obese, answers questions appropriately - Neck Neck exam general surgery: Present: supple, trachea midline. Absent: lymphadenopathy - Respiratory Respiratory exam: Present: CTAB. Absent: accessory muscle use, rales, rhonchi, wheezes - Cardiovascular Cardiovascular exam: Present: RRR, +S1, +S2. Absent: diastolic murmur, gallop, rubs, systolic murmur - GI/Abdominal GI/Abdominal exam: Present: normal bowel sounds, soft, no peritoneal signs. Absent: distended, tenderness - Extremities Exam Extremities exam: Present: warm, radial pulses palpable and symmetrical. Absent : calf tenderness, cyanotic, pedal edema - Neurological Exam Neurological exam: Present: CN II-XII intact, no focal deficits. Absent: facial droop, speech deficit - Skin Skin exam: Present: dry, intact Internal Medicine: Result - Labs CBC & Chem 7: 12/13/17 02:59 12/13/17 02:59 Labs: Short CBC 12/13/17 Range/Units 02:59 WBC 18.0 H (4.3-11.1) K/mcL Hgb 7.3 L (11.5-15.4) g/dL Hct 24.8 L (35.3-44.9) % Plt Count 196 (140-400) K/mcL Neutrophils # 15.7 H (1.6-8.9) K/mcL BMP 12/13/17 02:59 Sodium 138 Potassium 4.2 Chloride 103 Carbon Dioxide 25 BUN 50 H Creatinine 0.89 Glucose 90 Calcium 7.5 L - VTE Documentation of Mechanical Device: Intermittent pneumatic compression device Consult Discharge Plan - Plan Referrals: Swati Rios DO [Primary Care Provider] - (patient will follow up with [facility])
[2017-12-13] MEDS: Cholecalciferol (D-3) 1,000 UNIT TABLET PO SCH ×2 (08:26→20:35)
[2017-12-13] MEDS: Ascorbic Acid 500 MG TABLET PO SCH (08:27)
[2017-12-13] MEDS: Furosemide 40 MG/4 ML VIAL IVP SCH ×2 (08:27→16:07)
[2017-12-13] MEDS: Multivit/Ca/Min/Fe/FA 1 TAB TABLET PO SCH (08:27)
[2017-12-13] MEDS: Aspirin Enteric Coated 81 MG Tablet PO SCH (08:27)
[2017-12-13] MEDS: Piperacillin/Tazobactam 3.375 GM in 0.9 % Sodium Chloride Mini Bag 100 ML IVPB SCH ×2 (08:27→16:07)
[2017-12-13] MEDS: Lisinopril-HCTZ 20-12.5mg TABLET PO SCH (08:28)
[2017-12-13] MEDS ORDERED: 0.9 % Sodium Chloride 250 ML ONE (09:42)
[2017-12-13] MEDS ORDERED: Levofloxacin 750 MG/150 ML 750 MG/150 ML BAG IVPB SCH (11:00)
[2017-12-13 14:31] LABS: Folate 10.8 ng/mL (3.0-16.0)
[2017-12-13 15:51] LABS: % Iron Saturation 27 % (15-50); Ferritin > 1350 ng/ml (10-120); Iron 39 mcg/dL (50-170); Transferrin 105 mg/dL (203-362)
[2017-12-13] MEDS: Levofloxacin 750 MG/150 ML 750 MG/150 ML BAG IVPB SCH (16:15)
[2017-12-13] MEDS ORDERED: Albumin 25% 12.5gm/50mL 12.5 GM/50 ML IV.SOLN IVPB ONE (23:35)
[2017-12-14] MEDS: Piperacillin/Tazobactam 3.375 GM in 0.9 % Sodium Chloride Mini Bag 100 ML IVPB SCH ×4 (00:56→23:53)
[2017-12-14] MEDS ORDERED: Furosemide 20 MG/2 ML VIAL IVP ONE (04:00)
[2017-12-14] MEDS: *HR* Heparin 5,000 UNIT/ML VIAL SQ SCH ×2 (06:04→17:02)
[2017-12-14] MEDS: Ascorbic Acid 500 MG TABLET PO SCH (08:07)
[2017-12-14] MEDS: Aspirin Enteric Coated 81 MG Tablet PO SCH (08:07)
[2017-12-14] MEDS: Cholecalciferol (D-3) 1,000 UNIT TABLET PO SCH ×2 (08:08→20:36)
[2017-12-14] MEDS: Multivit/Ca/Min/Fe/FA 1 TAB TABLET PO SCH (08:08)
[2017-12-14] MEDS: Furosemide 40 MG/4 ML VIAL IVP SCH (08:08)
[2017-12-14 09:31] LABS: Basophils % 0.2 %; Eosinophils % 0.2 %; Hematocrit 27.8 % (35.3-44.9); Hemoglobin 8.6 g/dL (11.5-15.4); Immature Granulocytes % 3.5 % (0-4); Lymphocytes # 1.1 K/mcL (0.6-4.6); Lymphocytes % 6.2 %; Mean Corpuscular HGB Conc 30.9 g/dL (31.6-35.5); Mean Corpuscular Hemoglobin 27.6 pg (28.0-33.3); Mean Corpuscular Volume 89.1 fL (83.0-100.0); Mean Platelet Volume 9.6 fL (9.4-12.4); Monocytes # 0.5 K/mcL (0.0-1.3); Monocytes % 2.9 %; Neutrophils # 15.7 K/mcL (1.6-8.9); Platelet Count 182 K/mcL (140-400); Red Blood Count 3.12 M/mcL (3.82-4.97); Red Cell Distribution Width 16.6 % (11.5-14.5)
[2017-12-14] MEDS ORDERED: Dextrose Gel 15 GM/37.5 ML TUBE PO PRN ×2 (09:32)
[2017-12-14] MEDS ORDERED: *HR* Dextrose 50 % in Water (Syg) 50 ML SYRINGE IVP PRN (09:32)
[2017-12-14] MEDS ORDERED: D5% in Water 1,000 ML IVC PRN (09:32)
[2017-12-14 09:49] LABS: Calcium 7.6 mg/dL (8.6-10.3)
--- NOTE | 2017-12-14 11:27 | Internal Med Progress Note ---
Date of Encounter: 12/14/17 Time of Encounter: 11:24 - Assessment and plan (1) Acute respiratory failure with hypoxia Current Visit: Yes Status: Acute Assessment and plan: Continue O2 supplementation. Patient is currently on 3 L nasal cannula. Due to underlying pneumonia (2) Pneumonia Current Visit: Yes Status: Suspected Assessment and plan: Cultures remain negative. WBC count is elevated but stable. Continue current antibiotics for another day. Will de-escalate tomorrow. High risk is for complications. Qualifiers: Pneumonia type: due to methicillin-resistant Staphylococcus aureus (MRSA) Laterality: bilateral Lung location: lower lobe of lung Qualified Code(s): J15.212 - Pneumonia due to Methicillin resistant Staphylococcus aureus (3) Atrial fibrillation Current Visit: Yes Status: Chronic Assessment and plan: Heart rate is mostly controlled. Continue metoprolol. Not on anticoagulation due to anemia and underlying disease. Qualifiers: Atrial fibrillation type: paroxysmal Qualified Code(s): I48.0 - Paroxysmal atrial fibrillation (4) Diabetes mellitus Current Visit: Yes Status: Chronic Assessment and plan: blood sugars are elevated today. Will place patient on correctional sliding scale coverage. Qualifiers: Diabetes mellitus type: type 2 Diabetes mellitus complication status: with hypoglycemia Diabetes mellitus complication detail: without coma Diabetes mellitus primary teaching assistant insulin use: without primary teaching assistant use Qualified Code(s): E11.649 - Type 2 diabetes mellitus with hypoglycemia without coma (5) Hypoglycemia Current Visit: Yes Status: Resolved (6) Metastatic primary lung cancer Current Visit: Yes Status: Chronic Assessment and plan: Patient is DNR comfort care/DNI. Will follow up with oncology as outpatient. Qualifiers: Laterality: right Qualified Code(s): C34.91 - Malignant neoplasm of unspecified part of right bronchus or lung (7) UTI (urinary tract infection) Current Visit: Yes Status: Acute Assessment and plan: Cultures are negative. Patient is on antibiotics to treat pneumonia which should treat underlying urinary tract infection. Qualifiers: Urinary tract infection type: acute cystitis Hematuria presence: without hematuria Qualified Code(s): N30.00 - Acute cystitis without hematuria (8) Anemia Current Visit: Yes Status: Chronic Assessment and plan: Improved after 1 unit blood transfusion. We will continue to monitor. Mild iron deficiency. Will replete orally. Qualifiers: Anemia type: unspecified type Qualified Code(s): D64.9 - Anemia, unspecified (9) DVT prophylaxis Current Visit: Yes Status: Acute Assessment and plan: On subcutaneous heparin - Subjective Interval history: Patient is somnolent but easily awakes. Denies any new complaints at this time. Does continue to have generalized anasarca. No chest pain reported. No fever or chills reported overnight. No nausea or vomiting. - Constitutional Vitals: Temp Pulse Resp BP Pulse Ox 99.0 F 100 14 98/61 98 12/14/17 07:13 12/14/17 07:13 12/14/17 07:13 12/14/17 07:13 12/14/17 07:13 General appearance: Present: A&O X 2, mild distress, pleasant, obese, answers questions appropriately - Neck Neck exam general surgery: Present: supple, trachea midline. Absent: lymphadenopathy - Cardiovascular Cardiovascular exam: Present: RRR, +S1, +S2. Absent: diastolic murmur, gallop, rubs, systolic murmur - GI/Abdominal GI/Abdominal exam: Present: normal bowel sounds, soft, no peritoneal signs. Absent: distended, tenderness - Extremities Exam Extremities exam: Present: pedal edema (Generalized anasarca with edema in upper and lower extremities), warm, radial pulses palpable and symmetrical. Absent: calf tenderness, cyanotic - Neurological Exam Neurological exam: Present: CN II-XII intact, oriented X3, no focal deficits. Absent: facial droop, speech deficit Internal Medicine: Result - Labs CBC & Chem 7: 12/14/17 09:10 12/14/17 09:10 Labs: Short CBC 12/14/17 Range/Units 09:10 WBC 18.0 H (4.3-11.1) K/mcL Hgb 8.6 L (11.5-15.4) g/dL Hct 27.8 L (35.3-44.9) % Plt Count 182 (140-400) K/mcL Neutrophils # 15.7 H (1.6-8.9) K/mcL BMP 12/14/17 09:10 Sodium 138 Potassium 4.0 Chloride 105 Carbon Dioxide 22 L BUN 60 H Creatinine 1.09 Glucose 306 H Calcium 7.6 L - VTE Documentation of Mechanical Device: Intermittent pneumatic compression device Consult Discharge Plan - Plan Referrals: Swati Rios DO [Primary Care Provider] - (patient will follow up with [facility])
[2017-12-14] MEDS: Insulin LISPRO 300 UNITS/3 ML VIAL SQ SCH ×3 (12:18→22:33)
[2017-12-15] MEDS: *HR* Morphine Immed Rel 30 MG TABLET PO PRN ×2 (01:52→16:22)
[2017-12-15] MEDS: *HR* Heparin 5,000 UNIT/ML VIAL SQ SCH ×2 (05:17→17:16)
[2017-12-15 07:11] LABS: Hemoglobin 9.3 g/dL (11.5-15.4); Mean Corpuscular Hemoglobin 27.7 pg (28.0-33.3); Mean Corpuscular Volume 89.3 fL (83.0-100.0); Mean Platelet Volume 9.8 fL (9.4-12.4); Platelet Count 199 K/mcL (140-400); Red Blood Count 3.36 M/mcL (3.82-4.97); Red Cell Distribution Width 16.8 % (11.5-14.5)
[2017-12-15 08:29] LABS: Calcium 7.9 mg/dL (8.6-10.3); Potassium 3.8 mEq/L (3.5-5.1)
[2017-12-15 08:30] LABS: Lymphocytes # 2.4 K/mcL (0.6-4.6); Monocytes # 0.4 K/mcL (0.0-1.3); Neutrophils # 16.6 K/mcL (1.6-8.9)
[2017-12-15 08:31] LABS: Platelet Estimate Normal (Normal); Toxic Granulation Present (Not Present)
[2017-12-15] MEDS: Cholecalciferol (D-3) 1,000 UNIT TABLET PO SCH ×2 (08:51→21:56)
[2017-12-15] MEDS: Aspirin Enteric Coated 81 MG Tablet PO SCH (08:52)
[2017-12-15] MEDS: Multivit/Ca/Min/Fe/FA 1 TAB TABLET PO SCH (08:52)
[2017-12-15] MEDS: Ascorbic Acid 500 MG TABLET PO SCH (08:52)
[2017-12-15] MEDS: Piperacillin/Tazobactam 3.375 GM in 0.9 % Sodium Chloride Mini Bag 100 ML IVPB SCH ×2 (08:52→16:03)
[2017-12-15] MEDS: Insulin LISPRO 300 UNITS/3 ML VIAL SQ SCH ×4 (08:55→21:57)
--- NOTE | 2017-12-15 10:36 | Infectious Disease Consult ---
Date of Encounter: 12/15/17 Time of Encounter: 09:50 Assessment and Plan (1) Sepsis Status: Acute Assessment and plan: Severe sepsis 2 SIRS criteria present: Tachycardia and leukocytosis Elevated lactic acid ADDIS and decreased mentation present UTI/pyelonephritis versus HCAP vs Aspiration vs other Repeat urine cultures and blood cultures negative Previous urine cultures on 11/28 positive for VRE, pseudomonas, Klebsiella Recommend continuing Zosyn and Levaquin Stop vancomycin We will stop SSRI in anticipation of starting Zyvox Start Zyvox Obtain CXR We will dose adjust medications based on patient renal function, current creatinine clearance 34 Qualifiers: Sepsis type: sepsis due to unspecified organism Qualified Code(s): A41.9 - Sepsis, unspecified organism (2) HCAP (healthcare-associated pneumonia) Status: Suspected Assessment and plan: Suspected healthcare associated pneumonia Patient resident [facility], recent IV antibiotics, recent hospital stay CT abdomen/pelvis to suggest lower lung lobe infiltrates Plan as above (3) UTI (urinary tract infection) Status: Acute Assessment and plan: Recent treatment for UTI/pyelonephritis Urine cultures taken on 11/28/17 positive for VRE, pseudomonas aeruginosa, and Klebsiella pneumonia Treated with Zosyn previously Klebsiella pneumoniae intermediate sensitivity to Zosyn Plan as above Qualifiers: Urinary tract infection type: acute cystitis Hematuria presence: without hematuria Qualified Code(s): N30.00 - Acute cystitis without hematuria (4) Mental status, decreased Status: Acute Assessment and plan: Patient baseline mentation alert and oriented 3/2 Patient alert but unable to respond in any way including shaking head or nodding today (5) Metastatic adenocarcinoma Status: Acute Assessment and plan: History of 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 (6) Diabetes mellitus Status: Chronic Assessment and plan: Continue management per primary team Qualifiers: Diabetes mellitus type: type 2 Diabetes mellitus complication status: with hypoglycemia Diabetes mellitus complication detail: without coma 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 Infectious disease was consulted on 12/15 due to the presence of persistent leukocytosis and concerns for pneumonia/UTI. She had recently been treated for UTI/pyelonephritis (VRE, pseudomonas aerruginosa, and Klebsiella pneumonia), having been discharged from the hospital on 11/15. She had been receiving Diflucan and Zosyn and was discharged with continuation of Zosyn and fluconazole for 4 days. Patient resides in a nursing facility and was found to have decreased responsiveness by the staff at the facility, after check for blood glucose was found to be in the 40s. She is given 2 doses of glucagon with repeat blood glucose check been in the 30s. At that time the patient received D50 and was able to deny having fevers, cough, chest pain, abdominal pain, nausea/vomiting, anorexia and was alert and oriented. Although she had no complaints she was found to have an infection of her chronic Simental with evidence of cystitis. She was given a dose of Rocephin and her Simental was replaced. She is continued on D5 half-normal saline and admitted to the hospital. Initial lab work performed revealed a leukocytosis of 12.6, elevated lactic acid 2.3, and a UA that showed some pyuria but was grossly contaminated. Imaging performed: Chest x-ray showed no acute findings with stable focal opacification in the right lower paratracheal region, CT head was negative for acute findings, and CT abdomen/pelvis showed moderate bladder thickening with air present and possible infiltrate in the lower lobes of the lungs. She has been receiving broad-spectrum antibiotics with vancomycin and Zosyn with the R addition of Levaquin. During this time. Has remained afebrile but her white blood cell count continues to elevate with yesterday being 18.0 and today being 19.7, neutrophil predominant. Present today are also 24% band cells. She is also been developing a UTI with her previous creatinine upon admission of 0.72 now is 1.37. Blood and urine cultures taken on 12/11 are negative for growth. The exam today was significantly limited by patient mental status does such history had to be obtained by speaking with her nurse and chart review. Apparently her baseline mentation is relatively normal with her having episodes of being alert and oriented 3 versus alert and oriented 2. Patient was not able to cooperate or contributed all to discussion or history. CC: Neal Vaughan MD Past Med Surg Social Fam HX - Past Medical History Medical history: cancer, diabetes, hyperlipidemia, hypertension, other Psychiatric history: no psych history - Past Surgical History Surgical History: cancer surgery, knee replacement - Social History Smoking Status: Never smoker Smokeless Tobacco Status: No Alcohol use: none Drug use: none - Family History Mother Living Status: Hx Family Cardiac Disorders: Yes (cabg, heart failure) Hx Family Respiratory Disorders: Yes Father Living Status: Hx Family Cancer: Yes (colon) Infectious Disease-CN:Meds Glimepiride [Amaryl] 2 mg PO DAILY 05/22/15 [History] Lisinopril/Hydrochlorothiazide [Lisinopril-Hctz 20-12.5 mg Tab] 1 each PO BID [History] Metoprolol Tartrate 50 mg PO BID 05/22/15 [History] Multivitamin/Iron/Folic Acid [Centrum Complete Multivit Tab] 1 each PO DAILY 01/01 [History] Polyethylene Glycol 3350 [MiraLAX] 17 gm PO DAILY PRN 12/10/16 [History] Lactulose 20 gm PO QID PRN #240 ml 10/07/17 [Rx] Aspirin Enteric Coated [Aspirin EC] 81 mg PO DAILY 11/03/17 [History] Loperamide [Imodium] 2 mg PO PER PKG DI PRN 11/03/17 [History] Omeprazole [PriLOSEC] 20 mg PO DAILY 11/03/17 [History] HYDROcodone/Acet 5/325 mg [[place] 5-325 mg] 1 tab PO Q6H PRN #60 tab 11/15/17 [Rx ] LORazepam [Ativan] 0.5 mg PO Q8H PRN #24 tablet 11/15/17 [Rx] Morphine Immed Rel [Morphine Sulfate] 15 mg PO Q2H PRN #30 tab 11/15/17 [Rx] Ascorbic Acid [Vitamin C] 1,000 mg PO DAILY 11/21/17 [History] Calcium Carbonate/Vitamin D3 [Liquid Calcium 600-Vit D3 Sfgl] 1 each PO DAILY [History] Cholecalciferol (D-3) [Vitamin D] 1,000 unit PO BID 11/21/17 [History] Docusate [Colace] 200 mg PO BID 11/21/17 [History] Gluc 2Kcl/Chondr/Maurice Hy/Hy AC [Glucosamine & Chondroitin Cap] 1 each PO DAILY 11/21/17 [History] Simvastatin [Zocor] 20 mg PO HS 11/21/17 [History] Sertraline [Zoloft] 25 mg PO HS 12/11/17 [History] 3 Allergy/AdvReac Type Severity Reaction Status Date / Time Sulfa (Sulfonamide Allergy Unknown Fainting Verified 12/11/17 18:36 Antibiotics) ROS unobtainable: due to mental status Exam - Constitutional Vitals: Temp Pulse Resp BP Pulse Ox 98.6 F 104 17 86/55 98 12/15/17 07:42 12/15/17 07:42 12/15/17 07:42 12/15/17 07:42 12/15/17 07:42 - Additional findings Additional findings: General: A and O 0 HEENT: Normocephalic, atraumatic, Conjunctiva pink, sclera anicteric, oral mucosa moist, no orophargeal erythema or exudates Respiratory: No accessory muscle usage, clear to auscultation bilaterally, limited by patient's inability to take deep breaths due to mentation Cardiovascular: Regular rate and rhythm, S1 and S2 present, no murmurs/rubs/ gallops/clicks appreciated GI/abdominal: Nondistended, nontender, soft, normal bowel sounds, no peritoneal signs Extremities: No calf tenderness, noncyanotic, mild pedal edema appreciated, warm , lower extremity pulses palpable and symmetrical Neurological: Alert and oriented 0, no facial droop, no focal deficits Skin: Dry, intact, normal color Infectious Disease CN: Results - Labs CBC & Chem 7: 12/15/17 05:55 12/15/17 05:55 - VTE Documentation of Mechanical Device: Intermittent pneumatic compression device Consult Discharge Plan - Plan Referrals: Swati Rios DO [Primary Care Provider] - (patient will follow up with [facility] pcp) - Attending Attestation I examined this patient and my medical decision-making was reviewed with the Resident Physician. I agree with the documented findings, disposition and treatment plan as described except to the extent set forth below. This is an addendum to original report dictated by resident physician. Please refer to residents note for full detail. This is an addendum to original report dictated by resident physician.~ Please refer to residents note for full detail. ~ Patient is an 87-year-old woman is a resident of [facility] with extensive past medical history mentioned below including diabetes mellitus type 2, metastatic adenocarcinoma of the right upper lobe of the lung with bone metastases, chronic anemia and hypertension was transferred from senior living facility for hypoglycemia.~ And decreased mental status.~ Patient was recently seen by us on previous admission for persistent leukocytosis, pneumonia and urinary tract infection.~ Initially we thought that the persistent leukocytosis was due to her malignancy.~ All antibiotics were stopped and the patient spikes a temperature of 100.3 Fahrenheit.~ We repeated imaging and checked a CT abdomen and pelvis which showed perinephric stranding, bladder wall thickening.~ Urine culture was positive.~ Patient was given Zosyn and Diflucan.~ Patient has a repeat urine culture done on 11/28/2017 which was positive for VRE, pseudomonas aeruginosa and klebsiella pneumoniae species.~ Since this admission patient has been afebrile, she has been tachycardic, and her presenting WBC was 12.6 thousand with 90% neutrophils that has jumped to 18, 000 and currently she has bandemia 24%.~ Patient also went into acute kidney injury with a creatinine that jumped from 0.72-1.37.~ Blood and urine cultures were obtained on December 11 all of which have been no growth to date.~ Patient had a repeat CT abdomen and pelvis with no IV no oral contrast which revealed moderate bladder wall thickening with pericystic inflammatory changes suggesting cystitis.~ A chest x-ray was also done and it revealed low lung volume study no definite significant changes or acute process.~ Patient was started on vancomycin and Zosyn and we were consulted to evaluate the patient and make further recommendations. ~ patient appears very frail, failure to thrive, minimally responsive if any. does not follow commands physical exam is so limited due to patients mentation At this point not sure if she's having UTI/pyelonephritis vs HCAP vs other urine culture negative but recent cultures were positive for VRE, PSEA and Klebsiella pneumoniae Intermediate to zosyn I am also concerned for possible aspiration continue zosyn and levaquin d/c vancomycin d/c SSRI start zyvox duration fo treatment depends on clinical picture monitor labs and for drug toxicity dose adjust antibiotics based on crcl prognosis poor ~ ~
[2017-12-15] MEDS ORDERED: Aminoglycoside Consult 1 EACH MC ONE (12:03)
--- NOTE | 2017-12-15 15:51 | Internal Med Progress Note ---
Date of Encounter: 12/15/17 Time of Encounter: 09:50 - Assessment and plan (1) Acute respiratory failure with hypoxia Current Visit: Yes Status: Acute Assessment and plan: Continue supportive care. Patient's CODE STATUS is DNR comfort care/DNI. We will need this further with the family as they seemed to be leaning towards comfort care and hospice. Patient continues to have poor overall prognosis. High risk for complications. (2) Pneumonia Current Visit: Yes Status: Suspected Assessment and plan: Leukocytosis worsening. We will consult infectious disease for recommendations regarding antibiotic regimen. Currently patient is on vancomycin and Zosyn and Levaquin. Qualifiers: Pneumonia type: due to methicillin-resistant Staphylococcus aureus (MRSA) Laterality: bilateral Lung location: lower lobe of lung Qualified Code(s): J15.212 - Pneumonia due to Methicillin resistant Staphylococcus aureus (3) ADDIS (acute kidney injury) Current Visit: Yes Status: Acute Assessment and plan: renal function worsening. BUN 63, creatinine 1.37. We will consult nephrology for recommendations. Stop Lasix. Avoid nephrotoxic agents. (4) Atrial fibrillation Current Visit: Yes Status: Chronic Assessment and plan: Heart rate ranging between 90 and 110. On metoprolol. Did not receive this medication due to low blood pressure this morning. Qualifiers: Atrial fibrillation type: paroxysmal Qualified Code(s): I48.0 - Paroxysmal atrial fibrillation (5) Diabetes mellitus Current Visit: Yes Status: Chronic Assessment and plan: Controlled. Continue current insulin regimen. Qualifiers: Diabetes mellitus type: type 2 Diabetes mellitus complication status: with hypoglycemia Diabetes mellitus complication detail: without coma Diabetes mellitus senior living insulin use: without senior living use Qualified Code(s): E11.649 - Type 2 diabetes mellitus with hypoglycemia without coma (6) Hypoglycemia Current Visit: Yes Status: Resolved (7) Metastatic primary lung cancer Current Visit: Yes Status: Chronic Assessment and plan: Was on palliative treatment per oncology as outpatient. Poor overall prognosis. Qualifiers: Laterality: right Qualified Code(s): C34.91 - Malignant neoplasm of unspecified part of right bronchus or lung (8) UTI (urinary tract infection) Current Visit: Yes Status: Acute Assessment and plan: Urine culture shows no growth. Patient is on broad-spectrum antibiotics. Qualifiers: Urinary tract infection type: acute cystitis Hematuria presence: without hematuria Qualified Code(s): N30.00 - Acute cystitis without hematuria (9) Anemia Current Visit: Yes Status: Chronic Assessment and plan: Hemoglobin levels have improved after patient received blood transfusion. Due to chronic neoplastic disease. Qualifiers: Anemia type: other cause Other causes of anemia: chronic disease, neoplastic Qualified Code(s): D63.0 - Anemia in neoplastic disease (10) DVT prophylaxis Current Visit: Yes Status: Acute Assessment and plan: On subcutaneous heparin - Subjective Interval history: Patient seen earlier today. Somnolent but awakes. Not responding to questions today. No fever reported overnight. - Constitutional Vitals: Temp Pulse Resp BP Pulse Ox 98.1 F 102 16 75/38 98 12/15/17 11:31 12/15/17 11:31 12/15/17 11:31 12/15/17 11:31 12/15/17 11:31 General appearance: Present: A&O X 2, mild distress, pleasant, obese, answers questions appropriately - Neck Neck exam general surgery: Present: supple, trachea midline. Absent: lymphadenopathy - Respiratory Respiratory exam: Present: decreased breath sounds (at both bases), prolonged expiratory phase. Absent: accessory muscle use, rales, rhonchi, wheezes - Cardiovascular Cardiovascular exam: Present: RRR, +S1, +S2. Absent: diastolic murmur, gallop, rubs, systolic murmur - GI/Abdominal GI/Abdominal exam: Present: normal bowel sounds, soft, no peritoneal signs. Absent: distended, tenderness - Extremities Exam Extremities exam: Present: pedal edema (Generalized anasarca), warm, radial pulses palpable and symmetrical. Absent: calf tenderness, cyanotic Internal Medicine: Result - Labs CBC & Chem 7: 12/15/17 05:55 12/15/17 05:55 Labs: Short CBC 12/15/17 Range/Units 05:55 WBC 19.7 H (4.3-11.1) K/mcL Hgb 9.3 L (11.5-15.4) g/dL Hct 30.0 L (35.3-44.9) % Plt Count 199 (140-400) K/mcL Neutrophils # 16.6 H (1.6-8.9) K/mcL BMP 12/15/17 05:55 Sodium 140 Potassium 3.8 Chloride 107 Carbon Dioxide 21 L BUN 63 H Creatinine 1.37 H Glucose 104 Calcium 7.9 L - VTE Documentation of Mechanical Device: Intermittent pneumatic compression device Consult Discharge Plan - Plan Referrals: Swati Rios DO [Primary Care Provider] - (patient will follow up with [facility] pcp)
[2017-12-15] MEDS: Levofloxacin 750 MG/150 ML 750 MG/150 ML BAG IVPB SCH (15:59)
--- NOTE | 2017-12-15 23:04 | Event Note ---
Date of Encounter: 12/15/17 Time of Encounter: 06:50 Discussed with patient's daughter the goals and plan of care. No aggressive measures. Consult Palliative care and possibly transition to hospice/ comfort care.
[2017-12-16] MEDS: Piperacillin/Tazobactam 3.375 GM in 0.9 % Sodium Chloride Mini Bag 100 ML IVPB SCH ×2 (00:41→11:50)
[2017-12-16] MEDS: MORPHINE SUL Oral CONC 10 MG/0.5 ML ORAL.SYG SL PRN ×2 (00:42→12:26)
[2017-12-16] MEDS: *HR* Heparin 5,000 UNIT/ML VIAL SQ SCH (06:01)
--- NOTE | 2017-12-16 07:21 | Infectious Disease Progress No ---
Date of Encounter: 12/16/17 Time of Encounter: 07:00 - Assessment and Plan (1) Sepsis Current Visit: No Status: Acute Severe sepsis 2 SIRS criteria present: Tachycardia and leukocytosis (from labs yesterday) Elevated lactic acid at admission ADDIS and decreased mentation present UTI/pyelonephritis versus HCAP vs Aspiration vs other Repeat urine cultures and blood cultures negative Previous urine cultures on 11/28 positive for VRE, pseudomonas, Klebsiella Vancomycin stopped yesterday Sertraline stopped yesterday CXR performed on 12/15 showed new mild atelectasis Recommend continuing Zosyn and Levaquin Continue Zyvox (started 12/15) Today is day 2 We will dose adjust medications based on patient renal function, current creatinine clearance 34 Qualifiers: Sepsis type: sepsis due to unspecified organism Qualified Code(s): A41.9 - Sepsis, unspecified organism (2) HCAP (healthcare-associated pneumonia) Current Visit: Yes Status: Suspected Suspected healthcare associated pneumonia Patient resident [facility], recent IV antibiotics, recent hospital stay CT abdomen/pelvis to suggest lower lung lobe infiltrates CXR performed on 12/15 suggestive of new mild atelectasis Plan as above (3) UTI (urinary tract infection) Current Visit: Yes Status: Acute Recent treatment for UTI/pyelonephritis Urine cultures taken on 11/28/17 positive for VRE, pseudomonas aeruginosa, and Klebsiella pneumonia Treated with Zosyn previously Klebsiella pneumoniae intermediate sensitivity to Zosyn Plan as above Qualifiers: Urinary tract infection type: acute cystitis Hematuria presence: without hematuria Qualified Code(s): N30.00 - Acute cystitis without hematuria (4) Mental status, decreased Current Visit: Yes Status: Acute Patient baseline mentation alert and oriented 2/3 Patient alert but unable to respond in any way including shaking head or nodding today Appears to wince in pain to any part of exam (5) Metastatic adenocarcinoma Current Visit: Yes Status: Acute History of 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 So it is difficult to ascertain any subjective information at the moment. She does appear to wince with any contact. Patient has remained afebrile, but continues to have tachycardia. Infect Dis PN-Objective Data - Labs CBC & Chem 7: 12/15/17 05:55 12/15/17 05:55 Labs: Laboratory Results - last 24 hr 12/15/17 12/15/17 12/15/17 05:55 05:55 08:18 WBC 19.7 H RBC 3.36 L Hgb 9.3 L Hct 30.0 L MCV 89.3 MCH 27.7 L MCHC 31.0 L RDW 16.8 H Plt Count 199 MPV 9.8 Seg Neutrophils % 60.0 Band Neutrophils % 24.0 H Lymphocytes % 12.0 Monocytes % 2.0 Metamyelocytes % 2.0 H Neutrophils # 16.6 H Lymphocytes # 2.4 Monocytes # 0.4 Toxic Granulation Present A Platelet Estimate Normal Sodium 140 Potassium 3.8 Chloride 107 Carbon Dioxide 21 L BUN 63 H Creatinine 1.37 H Est GFR ( Amer) 44 L Est GFR (Non-Af Amer) 37 L BUN/Creatinine Ratio 46 H Glucose 104 POC Glucose 105 H Calculated Osmolality 308 H Calcium 7.9 L 12/15/17 12/15/17 12/15/17 11:30 15:55 23:31 WBC RBC Hgb Hct MCV MCH MCHC RDW Plt Count MPV Seg Neutrophils % Band Neutrophils % Lymphocytes % Monocytes % Metamyelocytes % Neutrophils # Lymphocytes # Monocytes # Toxic Granulation Platelet Estimate Sodium Potassium Chloride Carbon Dioxide BUN Creatinine Est GFR ( Amer) Est GFR (Non-Af Amer) BUN/Creatinine Ratio Glucose POC Glucose 131 H 110 H 133 H Calculated Osmolality Calcium - Impressions Impressions Chest X-Ray 12/15/17 14:22 IMPRESSION: New mild left basilar atelectasis. D/ / Jocelyn Perera MD / Jocelyn Perera MD Interpreting Provider: Jocelyn Perera MD Exam - Constitutional Vitals: Temp Pulse Resp BP Pulse Ox 98 F 96 14 74/52 96 12/16/17 06:07 12/16/17 06:07 12/16/17 06:07 12/16/17 06:07 12/16/17 06:07 - Additional findings Additional findings: General: A&O 0 HEENT: Normocephalic, atraumatic, Conjunctiva pink, sclera anicteric, oral mucosa dry, no orophargeal erythema or exudates Respiratory: No accessory muscle usage, clear to auscultation bilaterally, limited by patient's inability to take deep breaths due to mentation Cardiovascular: Tachycardia, S1 and S2 present, no murmurs/rubs/gallops/clicks appreciated GI/abdominal: Nondistended, soft, normal bowel sounds, no peritoneal signs Extremities: No calf tenderness, noncyanotic, 1-2+ pedal edema appreciated, warm , lower extremity pulses palpable and symmetrical Neurological: A&Od 0, no facial droop, no focal deficits Skin: Dry, intact, normal color - VTE Documentation of Mechanical Device: Intermittent pneumatic compression device Consult Discharge Plan - Plan Referrals: Swati Rios DO [Primary Care Provider] - (patient will follow up with [facility]) - Attending Attestation I examined this patient and my medical decision-making was reviewed with the Resident Physician. I agree with the documented findings, disposition and treatment plan as described except to the extent set forth below.
--- NOTE | 2017-12-16 09:54 | Palliative - Consult Note ---
Date of Encounter: 12/16/17 Time of Encounter: 09:30 - Assessment and Plan (1) Generalized pain Current Visit: Yes Status: Acute Assessment and plan: Will continue Roxanol as ordered and titrate for comfort. Monitor (2) Anxiety Current Visit: Yes Status: Acute Assessment and plan: Lorazepam 1mg every 4 hours PRN. Monitor (3) Counseling regarding advanced care planning and goals of care Current Visit: Yes Status: Acute Assessment and plan: D/W daughter Indira over telephone - she is working 12 hours and cannot be here until evening. Indira does not desire any further aggressive care, - discussed at length and will change code status to DNRCC, medications discontinued except for comfort care. Discussed hospice - however, daughter cannot take home or provide care for her. There is no Medicaid, so unless patient returns to [facility] under a skilled level of care, there will be no payment. Daughter hoping for some further skilled days from [facility], however, with pt at comfort care level and comfort medications. D/W Stanislav Henson who will be contacting [facility] to discuss. D/W Dr. Vaughan (4) Lung cancer Current Visit: No Status: Chronic Qualifiers: Laterality: right Lung location: upper lobe of lung Qualified Code(s): C34.11 - Malignant neoplasm of upper lobe, right bronchus or lung (5) ADDIS (acute kidney injury) Current Visit: Yes Status: Acute (6) Leukocytosis Current Visit: No Status: Acute Qualifiers: Leukocytosis type: unspecified Qualified Code(s): D72.829 - Elevated white blood cell count, unspecified Palliative-CN HPI - Data of Consult Requesting Physician: Jj Barrett Primary Care Provider: Swati Rios DO - Consult Narrative History of present illness: Ms. Wasserman is a 87 year old female with a history of metastatic lung cancer known to the palliative care team from a previous visit, who was admitted with hypoglycemia. She was recently discharged last month, after treatment for UTI and actually left [facility] with IV antibiotics. She completed the course, and daughter actually states that she had been restarted on antibiotics at the [facility]. Patient is nonverbal and does not follow commands - daughter over telephone has provided information. States that a few days ago, pt stopped communicating and she is not taking anything orally. Daughter states she wants aggressive care stopped, no lab work or imaging, and wants her kept comfortable. Upon my visit, she will open eyes when name called, but no verbal response. Does not follow commands. Does not appear in any distress. On room air. Daughter is at work and apoke with her over telephone. CC: Jj Barrett Past Med Surg Social Fam HX - Past Medical History Medical history: cancer, diabetes, hyperlipidemia, hypertension, other Psychiatric history: no psych history - Past Surgical History Surgical History: cancer surgery, knee replacement - Social History Smoking Status: Never smoker Smokeless Tobacco Status: No Alcohol use: none Drug use: none - Family History Mother Living Status: Hx Family Cardiac Disorders: Yes (cabg, heart failure) Hx Family Respiratory Disorders: Yes Father Living Status: Hx Family Cancer: Yes (colon) Medications and Allergies Glimepiride [Amaryl] 2 mg PO DAILY 05/22/15 [History] Lisinopril/Hydrochlorothiazide [Lisinopril-Hctz 20-12.5 mg Tab] 1 each PO BID [History] Metoprolol Tartrate 50 mg PO BID 05/22/15 [History] Multivitamin/Iron/Folic Acid [Centrum Complete Multivit Tab] 1 each PO DAILY 01/01 [History] Polyethylene Glycol 3350 [MiraLAX] 17 gm PO DAILY PRN 12/10/16 [History] Lactulose 20 gm PO QID PRN #240 ml 10/07/17 [Rx] Aspirin Enteric Coated [Aspirin EC] 81 mg PO DAILY 11/03/17 [History] Loperamide [Imodium] 2 mg PO PER PKG DI PRN 11/03/17 [History] Omeprazole [PriLOSEC] 20 mg PO DAILY 11/03/17 [History] HYDROcodone/Acet 5/325 mg [[place] 5-325 mg] 1 tab PO Q6H PRN #60 tab 11/15/17 [Rx ] LORazepam [Ativan] 0.5 mg PO Q8H PRN #24 tablet 11/15/17 [Rx] Morphine Immed Rel [Morphine Sulfate] 15 mg PO Q2H PRN #30 tab 11/15/17 [Rx] Ascorbic Acid [Vitamin C] 1,000 mg PO DAILY 11/21/17 [History] Calcium Carbonate/Vitamin D3 [Liquid Calcium 600-Vit D3 Sfgl] 1 each PO DAILY [History] Cholecalciferol (D-3) [Vitamin D] 1,000 unit PO BID 11/21/17 [History] Docusate [Colace] 200 mg PO BID 11/21/17 [History] Gluc 2Kcl/Chondr/Maurice Hy/Hy AC [Glucosamine & Chondroitin Cap] 1 each PO DAILY 11/21/17 [History] Simvastatin [Zocor] 20 mg PO HS 11/21/17 [History] Sertraline [Zoloft] 25 mg PO HS 12/11/17 [History] 3 Allergy/AdvReac Type Severity Reaction Status Date / Time Sulfa (Sulfonamide Allergy Unknown Fainting Verified 12/11/17 18:36 Antibiotics) ROS unobtainable: due to mental status Palliative Care-Exam - Constitutional Vitals: Temp Pulse Resp BP Pulse Ox 98.2 F 112 14 92/56 97 12/16/17 07:35 12/16/17 07:35 12/16/17 07:35 12/16/17 07:35 12/16/17 07:35 General appearance: Present: no acute distress - Head Head Exam: Present: normal inspection, normocephalic - Eye Eye exam: Present: normal appearance, PERRL - Respiratory Respiratory exam: Present: decreased breath sounds, CTAB - Cardiovascular Cardiovascular exam: Present: irregular rhythm - GI/Abdominal Exam GI/Abdominal exam: Present: normal bowel sounds, soft - Catheter Type: Urethral (Simental) Additional comments: Urine cloudy in tubing - Extremities Exam Additional comments: 3-4+ edema bilateral lower leg edema - Neurological Exam Neurological exam: Present: alert Additional comments: Nonverbal - does shake head yes/no to few questions. Does not follow commands at present. - Skin Skin exam: Present: dry, pallor, warm Internal Medicine - CN: Reslt - Labs CBC & Chem 7: 12/15/17 05:55 12/15/17 05:55 - Impressions Impressions Chest X-Ray 12/15/17 14:22 IMPRESSION: New mild left basilar atelectasis. D/ / Jocelyn Perera MD / Jocelyn Perera MD Interpreting Provider: Jocelyn Perera MD Consult Discharge Plan - Plan Referrals: Swati Rios, [Primary Care Provider] - (patient will follow up with [facility]) Palliative Quality Palliative Quality: Screen for Code Status: Yes, Screen for Goals of Care: Yes, Screen for Pain: Yes, If Pain Regimen Started, Initiate Bowel Regimen: NA, Screen for Nausea/Vomitting: Yes Code Status: 12/13/17 07:38 Resuscitation Status: Active [RES] Routine Comment: Resuscitation Status: [id number]
[2017-12-16] MEDS: Insulin LISPRO 300 UNITS/3 ML VIAL SQ SCH (10:09)
[2017-12-16] MEDS: Aspirin Enteric Coated 81 MG Tablet PO SCH (10:45)
[2017-12-16] MEDS: Multivit/Ca/Min/Fe/FA 1 TAB TABLET PO SCH (10:45)
[2017-12-16] MEDS: Ascorbic Acid 500 MG TABLET PO SCH (10:45)
[2017-12-16] MEDS: Cholecalciferol (D-3) 1,000 UNIT TABLET PO SCH (10:45)
--- NOTE | 2017-12-16 12:54 | Event Note ---
Date of Encounter: 12/16/17 Time of Encounter: 12:52 Nephrology was consult on this patient however notes say patient has now transitioned to hospice/comfort care with no further aggressive measures to be taken. Please re-consult if code status changes and nephrology services needed.
--- NOTE | 2017-12-16 17:55 | Internal Med Progress Note ---
Date of Encounter: 12/16/17 Time of Encounter: 11:00 - Assessment and plan (1) Palliative care patient Current Visit: Yes Status: Acute Assessment and plan: -Patient has decided to withdraw all further aggressive care -As a result IV antibiotics have been discontinued -Hospice also discussed; palliative care following and appreciate further recommendations - Subjective Interval history: Family and patient have decided to withdraw all [place] measures/care and will like to proceed with DNR CC; hospice was discussed All antibiotics had been discontinued - Constitutional Vitals: Temp Pulse Resp BP Pulse Ox 99.3 F 120 12 80/49 97 12/16/17 15:40 12/16/17 15:40 12/16/17 15:40 12/16/17 15:40 12/16/17 15:40 General appearance: Present: A&O X 0 (Patient not communicating on exam), A&O X 2, mild distress, pleasant, no acute distress, obese, answers questions appropriately - Cardiovascular Cardiovascular exam: Present: RRR, +S1, +S2. Absent: diastolic murmur, gallop, rubs, systolic murmur - Other Additional findings: Generalized swelling Internal Medicine: Result - Labs CBC & Chem 7: 12/15/17 05:55 12/15/17 05:55 - VTE Documentation of Mechanical Device: Intermittent pneumatic compression device Consult Discharge Plan - Plan Referrals: Swati Rios DO [Primary Care Provider] - (patient will follow up with [facility])
--- NOTE | 2017-12-17 09:53 | Palliative Progress Note ---
Date of Encounter: 12/17/17 Time of Encounter: 09:15 - Assessment and plan (1) Anxiety Current Visit: Yes Status: Acute Assessment and plan: Patient has Lorazepam ordered if needed; no doses given in the last 24 hours. Will continue to monitor, titrate as needed. (2) Generalized pain Current Visit: Yes Status: Acute Assessment and plan: Noted increased wincing with minimal stimulation. Only single dose of Roxicodone administered in last 24 hours, as patient is nonverbal and unable to request pain medication. To ensure patient comfort will add low dosage Fentanyl Patch at 12 mcg ensuring comfort for patient with acute pain related to metastatic cancer. Continue Roxicodone for breakthrough pain. (3) Metastatic primary lung cancer Current Visit: Yes Status: Chronic Qualifiers: Laterality: right Qualified Code(s): C34.91 - Malignant neoplasm of unspecified part of right bronchus or lung (4) Goals of care, counseling/discussion Current Visit: No Status: Acute Assessment and plan: Attempted to contact [facility] for discharge planning, left message with no return call at this time. Anticipate that patient can return to [facility] later today. - Time Spent With Patient Total time spent is greater than 50% in coordination of care (as documented) at patient's floor/unit and/or counseling patient: - Subjective Interval history: Patient resting with eyes closed upon arrival. Startled when introducing gag writer. Winces some from touch, with auscultation. Discussed how feeling and if in pain; patient nonverbal and shaking head no upon questioning. - Constitutional Vitals: Abnormal lab results WBC 19.7 K/mcL (4.3-11.1) H 12/15/17 05:55 RBC 3.36 M/mcL (3.82-4.97) L 12/15/17 05:55 Hgb 9.3 g/dL (11.5-15.4) L 12/15/17 05:55 Hct 30.0 % (35.3-44.9) L 12/15/17 05:55 MCH 27.7 pg (28.0-33.3) L 12/15/17 05:55 MCHC 31.0 g/dL (31.6-35.5) L 12/15/17 05:55 RDW 16.8 % (11.5-14.5) H 12/15/17 05:55 Band Neutrophils % 24.0 % (0-4) H 12/15/17 05:55 Metamyelocytes % 2.0 % (0) H 12/15/17 05:55 Neutrophils # 16.6 K/mcL (1.6-8.9) H 12/15/17 05:55 Nucleated RBCs/100 WBC 0.2 /100 WBC (0) H 12/12/17 09:11 Toxic Granulation Present (Not Present) A 12/15/17 05:55 Hypochromasia Present (Not Present) A 12/13/17 02:59 Carbon Dioxide 21 mEq/L (23-29) L 12/15/17 05:55 BUN 63 mg/dL (8-23) H 12/15/17 05:55 Creatinine 1.37 mg/dL (0.60-1.20) H 12/15/17 05:55 Est GFR ( Amer) 44 (> 60) L 12/15/17 05:55 Est GFR (Non-Af Amer) 37 (> 60) L 12/15/17 05:55 BUN/Creatinine Ratio 46 (6-26) H 12/15/17 05:55 POC Glucose 133 (58-89) H 12/15/17 23:31 Calculated Osmolality 308 (280-300) H 12/15/17 05:55 Lactic Acid 2.3 mmol/L (0.5-2.2) H 12/11/17 23:26 Calcium 7.9 mg/dL (8.6-10.3) L 12/15/17 05:55 Iron 39 mcg/dL (50-170) L 12/13/17 13:32 Transferrin 105 mg/dL (203-362) L 12/13/17 13:32 Ferritin > 1350 ng/ml (10-120) H 12/13/17 13:32 Total Bilirubin 0.2 mg/dL (0.3-1.0) L 12/11/17 18:44 AST 57 Units/L (13-39) H 12/11/17 18:44 Serum Total Protein 4.3 g/dL (6.4-8.9) L 12/11/17 18:44 Albumin 2.0 g/dL (3.5-5.7) L 12/11/17 18:44 Globulin 2.3 g/dL (2.4-3.5) L 12/11/17 18:44 Albumin/Globulin Ratio 0.9 (1.1-2.2) L 12/11/17 18:44 Urine Clarity Cloudy (Clear) A 12/11/17 22:00 Urine Protein 30 mg/dL (Neg-Trace) H 12/11/17 22:00 Urine Blood Large (Negative) H 12/11/17 22:00 Ur Leukocyte Esterase Small (Negative) H 12/11/17 22:00 Urine Microscopic RBC 15-30 per hpf (0-3) H 12/11/17 22:00 Urine Microscopic WBC 15-30 per hpf (0-3) H 12/11/17 22:00 Ur Squamous Epith Cells Many per lpf (None-Few) H 12/11/17 22:00 Granular Casts Few per lpf (None Seen) H 12/11/17 22:00 General appearance: Present: disheveled, mild distress - Head Head exam: Present: normal inspection, normocephalic - Eye Eye exam: Present: normal appearance, PERRL Pupils: Present: normal accommodation, PERRL Additional comments: Sluggish reaction, equal. - ENT ENT exam: Present: mucous membranes dry - Respiratory Respiratory exam: Present: CTAB - Cardiovascular Cardiovascular exam: Present: irregular rhythm, +S3 Additional comments: General edema to upper and lower extremities, 3+. - GI/Abdominal GI/Abdominal exam: Present: hypoactive bowel sounds, soft Additional comments: Non tender. - Extremities Exam Extremities exam: Present: pedal edema - Neurological Exam Neurological exam: Present: alert Additional comments: Non verbal; no attempt to verbalize communication. Palliative Quality Palliative Quality: Screen for Code Status: Yes, Screen for Goals of Care: Yes, Screen for Pain: Yes, If Pain Regimen Started, Initiate Bowel Regimen: NA, Screen for Nausea/Vomitting: Yes Code Status: 12/13/17 07:38 Resuscitation Status: Active [RES] Routine Comment: Resuscitation Status: [id number] 12/16/17 11:18 DNR [Resuscitation Status: Active] [RES] Routine Comment: Resuscitation Status: DNR-Comfort Care - Labs CBC & Chem 7: 12/15/17 05:55 12/15/17 05:55 Labs: Laboratory Results - last 24 hr 12/13/17 07:56 Crossmatch See Detail Consult Discharge Plan - Plan Referrals: Swati Rios DO [Primary Care Provider] - (patient will follow up with [facility])
[2017-12-17] MEDS ORDERED: *HR* FentaNYL PATCH 12 MCG PATCH TD SCH (11:00)
[2017-12-17] MEDS: MORPHINE SUL Oral CONC 10 MG/0.5 ML ORAL.SYG SL PRN ×2 (11:46→19:46)
[2017-12-17] MEDS: *HR* LORazepam Oral Conc 2 MG/ML SL PRN ×2 (15:00→19:51)
--- NOTE | 2017-12-17 15:59 | Physician Discharge Referral ---
[facility]Care Referral Info Institutional Level of Care: Intermediate - Diagnosis (1) Palliative care patient Priority: Primary Status: Acute - Transfer Medications Prescriptions: OxyCODONE CONC 15 mg PO Q2HR PRN 7 Days #30 mls PRN Reason: severe pain and dyspnea LORazepam Oral Conc [Ativan Oral Conc] 1 mg PO Q4HR PRN 7 Days #30 mls PRN Reason: anxiety and restlessness FentaNYL PATCH [Duragesic] 12 mcg TD Q72H 6 Days #2 patch.td72 Home Medications: Lisinopril/Hydrochlorothiazide [Lisinopril-Hctz 20-12.5 mg Tab] 1 each PO BID [History] Metoprolol Tartrate 50 mg PO BID 05/22/15 [History] Polyethylene Glycol 3350 [MiraLAX] 17 gm PO DAILY PRN 12/10/16 [History] Lactulose 20 gm PO QID PRN #240 ml 10/07/17 [Rx] Loperamide [Imodium] 2 mg PO PER PKG DI PRN 11/03/17 [History] Omeprazole [PriLOSEC] 20 mg PO DAILY 11/03/17 [History] Docusate [Colace] 200 mg PO BID 11/21/17 [History] Simvastatin [Zocor] 20 mg PO HS 11/21/17 [History] Sertraline [Zoloft] 25 mg PO HS 12/11/17 [History] FentaNYL PATCH [Duragesic] 12 mcg TD Q72H 6 Days #2 patch.td72 12/17/17 [Rx] LORazepam Oral Conc [Ativan Oral Conc] 1 mg PO Q4HR PRN 7 Days #30 mls 12/17/17 [Rx] OxyCODONE CONC 15 mg PO Q2HR PRN 7 Days #30 mls 12/17/17 [Rx] Allergies/Adverse Reactions: 3 Allergy/AdvReac Type Severity Reaction Status Date / Time Sulfa (Sulfonamide Allergy Unknown Fainting Verified 12/11/17 18:36 Antibiotics) - Respiratory Orders Smoking Cessation: Smoking cessation has been advised. For more information, call the [place] Tobacco Quit Line at 5-947-OZOY-NOW. CERTIFICATION: I certify that the transfer of the above named patient to an Extended Care Facility is necessary for the continuing treatment of the diagnosis listed. The above information is true and accurate reflection of patient's current condition. Confidential - Redisclosure prohibited without a patient's written consent.
--- NOTE | 2017-12-17 15:59 | Discharge Summary ---
- NOTES TO OUTPATIENT PROVIDER Notes to Outpatient Provider: Palliative care with consideration for hospice care Orders not resulted at time of discharge: Pending orders 12/13/17 12:27 Occult Blood,Stool [BF] Stat 12/15/17 19:32 Sodium, Urine [UCHEM] Routine Urinalysis Reflex Cult & Micro [URIN] Routine Urine Microalbumin Random [UCHEM] Routine Urine Protein Creat Ratio [place] [UCHEM] Routine Date of Encounter: 12/17/17 Time of Encounter: 11:00 - Discharge Diagnosis (1) Palliative care patient Priority: Primary Status: Acute Hospital course: Patient is an 87-year-old female with past medical history significant for diabetes, 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 She was found at the nursing facility and had decreased responsiveness. Patient 's blood sugar was 41. Patient received 2 treatments of glucagon and upon arrival repeat blood glucose recheck was in the 30s. She is currently receiving D51/2NS at 75 ml hour. She has mild anasarca and was recently discharged following an admission for UTI/pyelonephritis. In the ER, her head CT did not show acute pathology. Her CT-Abd/Pelvis showed bladder wall thickening and pericystic inflammatory changes. Her AFib is now better rate controlled after IVFs were given in the ER. Patient was admitted to the medical surgical floor for further management. During patients hospital stay she was being treated for acute hypoxic respiratory failure secondary to pneumonia on IV antibiotics. Nephrology was consulted for patients acute renal failure. All treatment however was discontinued as patient and family made a decision for palliative care with consideration for hospice. She will be discharged back to [facility] under palliative care and for consideration for hospice. - Time Spent with Patient Total time spent providing and/or coordinating discharge services: Less than 30 minutes - Discharge Medications Prescriptions: OxyCODONE CONC 15 mg PO Q2HR PRN 7 Days #30 mls PRN Reason: severe pain and dyspnea LORazepam Oral Conc [Ativan Oral Conc] 1 mg PO Q4HR PRN 7 Days #30 mls PRN Reason: anxiety and restlessness FentaNYL PATCH [Duragesic] 12 mcg TD Q72H 6 Days #2 patch.td72 Home Medications: Lisinopril/Hydrochlorothiazide [Lisinopril-Hctz 20-12.5 mg Tab] 1 each PO BID [History] Metoprolol Tartrate 50 mg PO BID 05/22/15 [History] Polyethylene Glycol 3350 [MiraLAX] 17 gm PO DAILY PRN 12/10/16 [History] Lactulose 20 gm PO QID PRN #240 ml 10/07/17 [Rx] Loperamide [Imodium] 2 mg PO PER PKG DI PRN 11/03/17 [History] Omeprazole [PriLOSEC] 20 mg PO DAILY 11/03/17 [History] Docusate [Colace] 200 mg PO BID 11/21/17 [History] Simvastatin [Zocor] 20 mg PO HS 11/21/17 [History] Sertraline [Zoloft] 25 mg PO HS 12/11/17 [History] FentaNYL PATCH [Duragesic] 12 mcg TD Q72H 6 Days #2 patch.td72 12/17/17 [Rx] LORazepam Oral Conc [Ativan Oral Conc] 1 mg PO Q4HR PRN 7 Days #30 mls 12/17/17 [Rx] OxyCODONE CONC 15 mg PO Q2HR PRN 7 Days #30 mls 12/17/17 [Rx] Allergies/Adverse Reactions: 3 Allergy/AdvReac Type Severity Reaction Status Date / Time Sulfa (Sulfonamide Allergy Unknown Fainting Verified 12/11/17 18:36 Antibiotics) Date of admission: 12/12/17 14:04 Primary care physician: Swati Rios DO Consults: 12/15/17 07:39 Consult to Infectious Diseases [CONS] Routine Consulting Provider: [facility] [place] Reason for Consult: Persistent leukocytosis despite broad spectrum antibiotics; pneumonia/ UTI Call Completed: Yes 12/15/17 09:05 Consult to Nephrology [CONS] Routine Consulting Provider: [facility] [place]/DONI/DARRON/ROSELIA Reason for Consult: ADDIS, anasarca Call Completed: Yes 12/15/17 18:48 Consult to Palliative Care [CONS] Routine Comment: Consulting Provider: Palliative Care [place] Reason for Consult: Transition of care to hospice; Discussed with Daughter; Please Call patient's daughter at the Post office at [phone] before 10 AM to discuss or her cell phone listed. Call Completed: No - Constitutional Vitals: Temp Pulse Resp BP Pulse Ox 98.4 F 109 16 117/68 97 12/17/17 07:34 12/17/17 07:34 12/17/17 07:34 12/17/17 07:34 12/17/17 07:34 General appearance: Present: A&O X 0 (Patient not communicating on exam), A&O X 2, mild distress, pleasant, no acute distress, obese, answers questions appropriately - Cardiovascular Cardiovascular exam: Present: RRR, +S1, +S2. Absent: diastolic murmur, gallop, rubs, systolic murmur - Patient Status Disposition: Transfer Intermediate Care Fac Condition: Fair - Discharge Instructions Instructions: Oxycodone/Acetaminophen (By mouth), Lorazepam (By mouth), Fentanyl (Absorbed through the skin) Follow Up With: Swati Rios DO [Primary Care Provider] - (patient will follow up with [facility]) - VTE Documentation of Mechanical Device: Intermittent pneumatic compression device
[2017-12-17] MEDS: Atropine Sulfate 1% 40 DROP/2 ML BOTTLE SL PRN ×2 (17:28→19:52)
[2017-12-17] MEDS ORDERED: Scopolamine Patch 1.5 MG PATCH.TD72 TD SCH (18:30)
[2017-12-18] MEDS: MORPHINE SUL Oral CONC 10 MG/0.5 ML ORAL.SYG SL PRN (03:37)
[2017-12-18] MEDS: Atropine Sulfate 1% 40 DROP/2 ML BOTTLE SL PRN ×3 (03:40→21:36)
[2017-12-18] MEDS: *HR* LORazepam Oral Conc 2 MG/ML SL PRN (05:02)
--- NOTE | 2017-12-18 08:50 | Palliative Progress Note ---
Date of Encounter: 12/18/17 Time of Encounter: 08:25 - Assessment and plan (1) Anxiety Current Visit: Yes Status: Acute Assessment and plan: Patient non-responsive at time of assessment; no signs of anxiety noted at present exam. Will continue Ativan as needed; 3 doses administered in the last 24 hours. Will titrate Ativan as needed for Anxiety control. (2) Generalized pain Current Visit: Yes Status: Acute Assessment and plan: No whincing or other signs of pain noted as assessment. Will continue Fentanyl Patch and Morphine oral; three doses of Morphine administered within last 24 hours. Will continue to monitor and titrate as needed for pain needs. (3) Metastatic primary lung cancer Current Visit: Yes Status: Chronic Qualifiers: Laterality: right Qualified Code(s): C34.91 - Malignant neoplasm of unspecified part of right bronchus or lung (4) Goals of care, counseling/discussion Current Visit: No Status: Acute Assessment and plan: VIRGINIE Kraft, notified patient's daughter, Indira Pete, of patients continual decline of condition, as actively dying. Indira and Indira's daughter are both going to be enroute from [place]. Nurse Nori notified of communication with daughter. Nursing or Palliative Care to keep Indira informed of situation until she is able to arrive at bedside. - Time Spent With Patient Total time spent is greater than 50% in coordination of care (as documented) at patient's floor/unit and/or counseling patient: - Subjective Interval history: Patient resting with eyes closed upon arrival. Audible coarse, wheezing lung sounds from doorway. No reaction when spoken to or touched. Attempted to arouse patient multiple times without a response. Pupils fixed at 5, no reaction. Difficult to hear irregular heart sounds over loud, moist lung sounds. No urine output noted to Simental catheter bag. Unable to palpate radial or pedal pulses, carotid pulse present, weak and irregular; 4+ pitting edema noted to all extremities. Scopolamine patch noted to left neck. Noted vital signs to be significantly decreased from yesterday. - Constitutional Vitals: Abnormal lab results WBC 19.7 K/mcL (4.3-11.1) H 12/15/17 05:55 RBC 3.36 M/mcL (3.82-4.97) L 12/15/17 05:55 Hgb 9.3 g/dL (11.5-15.4) L 12/15/17 05:55 Hct 30.0 % (35.3-44.9) L 12/15/17 05:55 MCH 27.7 pg (28.0-33.3) L 12/15/17 05:55 MCHC 31.0 g/dL (31.6-35.5) L 12/15/17 05:55 RDW 16.8 % (11.5-14.5) H 12/15/17 05:55 Band Neutrophils % 24.0 % (0-4) H 12/15/17 05:55 Metamyelocytes % 2.0 % (0) H 12/15/17 05:55 Neutrophils # 16.6 K/mcL (1.6-8.9) H 12/15/17 05:55 Nucleated RBCs/100 WBC 0.2 /100 WBC (0) H 12/12/17 09:11 Toxic Granulation Present (Not Present) A 12/15/17 05:55 Hypochromasia Present (Not Present) A 12/13/17 02:59 Carbon Dioxide 21 mEq/L (23-29) L 12/15/17 05:55 BUN 63 mg/dL (8-23) H 12/15/17 05:55 Creatinine 1.37 mg/dL (0.60-1.20) H 12/15/17 05:55 Est GFR ( Amer) 44 (> 60) L 12/15/17 05:55 Est GFR (Non-Af Amer) 37 (> 60) L 12/15/17 05:55 BUN/Creatinine Ratio 46 (6-26) H 12/15/17 05:55 POC Glucose 133 (58-89) H 12/15/17 23:31 Calculated Osmolality 308 (280-300) H 12/15/17 05:55 Lactic Acid 2.3 mmol/L (0.5-2.2) H 12/11/17 23:26 Calcium 7.9 mg/dL (8.6-10.3) L 12/15/17 05:55 Iron 39 mcg/dL (50-170) L 12/13/17 13:32 Transferrin 105 mg/dL (203-362) L 12/13/17 13:32 Ferritin > 1350 ng/ml (10-120) H 12/13/17 13:32 Total Bilirubin 0.2 mg/dL (0.3-1.0) L 12/11/17 18:44 AST 57 Units/L (13-39) H 12/11/17 18:44 Serum Total Protein 4.3 g/dL (6.4-8.9) L 12/11/17 18:44 Albumin 2.0 g/dL (3.5-5.7) L 12/11/17 18:44 Globulin 2.3 g/dL (2.4-3.5) L 12/11/17 18:44 Albumin/Globulin Ratio 0.9 (1.1-2.2) L 12/11/17 18:44 Urine Clarity Cloudy (Clear) A 12/11/17 22:00 Urine Protein 30 mg/dL (Neg-Trace) H 12/11/17 22:00 Urine Blood Large (Negative) H 12/11/17 22:00 Ur Leukocyte Esterase Small (Negative) H 12/11/17 22:00 Urine Microscopic RBC 15-30 per hpf (0-3) H 12/11/17 22:00 Urine Microscopic WBC 15-30 per hpf (0-3) H 12/11/17 22:00 Ur Squamous Epith Cells Many per lpf (None-Few) H 12/11/17 22:00 Granular Casts Few per lpf (None Seen) H 12/11/17 22:00 General appearance: Present: disheveled, no acute distress - Head Head exam: Present: normocephalic - Eye Pupils: Present: fixed Additional comments: pupils fixed at 4, no reaction to light. - ENT ENT exam: Present: mucous membranes dry - Respiratory Respiratory exam: Present: accessory muscle use, respiratory distress, rhonchi, wheezes. Absent: chest wall tenderness, decreased breath sounds, CTAB, prolonged expiratory phase, rales, stridor, tachypnea - Expanded Respiratory Exam Location: wheezes: Right (expiratory wheezes to right lobes throughout) - Cardiovascular Cardiovascular exam: Present: bradycardia, irregular rhythm. Absent: clicks, diastolic murmur, gallop, JVD, RRR, rubs, +S1, +S2, +S3, +S4, systolic murmur, tachycardia - GI/Abdominal GI/Abdominal exam: Present: diminished bowel sounds, soft. Absent: tenderness - Additional comments: No urine output noted to Simental Catheter bag. - Extremities Exam Extremities exam: Present: pedal edema. Absent: tenderness - Expanded Upper Extremity Exam Vascular: Absent: radial pulse, ulnar pulse - Expanded Lower Extremity Exam Hip exam: Present: swelling. Absent: tenderness Upper Leg exam: Present: swelling Lower leg exam: Present: swelling Neuro vascular tendon exam: Present: pulse deficit - Neurological Exam Neurological exam: Absent: alert, oriented X3 Additional comments: Patient nonreactive. - Skin Skin exam: Present: pallor. Absent: warm Additional comments: Skin moist with edema. Palliative Quality Palliative Quality: Screen for Code Status: Yes, Screen for Goals of Care: Yes, Screen for Pain: Yes, If Pain Regimen Started, Initiate Bowel Regimen: NA, Screen for Nausea/Vomitting: Yes Code Status: 12/13/17 07:38 Resuscitation Status: Active [RES] Routine Comment: Resuscitation Status: [id number] 12/16/17 11:18 DNR [Resuscitation Status: Active] [RES] Routine Comment: Resuscitation Status: DNR-Comfort Care - Labs CBC & Chem 7: 12/15/17 05:55 12/15/17 05:55 Consult Discharge Plan - Plan Instructions: Oxycodone/Acetaminophen (By mouth), Lorazepam (By mouth), Fentanyl (Absorbed through the skin) Referrals: Swati Rios DO [Primary Care Provider] - (patient will follow up with f pcp) Prescriptions: OxyCODONE CONC 15 mg PO Q2HR PRN 7 Days #30 mls PRN Reason: severe pain and dyspnea LORazepam Oral Conc [Ativan Oral Conc] 1 mg PO Q4HR PRN 7 Days #30 mls PRN Reason: anxiety and restlessness FentaNYL PATCH [Duragesic] 12 mcg TD Q72H 6 Days #2 patch.[id number]
--- NOTE | 2017-12-18 18:28 | Event Note ---
Date of Encounter: 12/19/17 Time of Encounter: 00:00 No further medical management Palliative care following
[2017-12-19] MEDS: Atropine Sulfate 1% 40 DROP/2 ML BOTTLE SL PRN ×3 (02:55→21:22)
[2017-12-19] MEDS ORDERED: Acetaminophen 650 MG RECTAL SUPP RC PRN (08:12)
--- NOTE | 2017-12-19 08:58 | Palliative Progress Note ---
Date of Encounter: 12/19/17 Time of Encounter: 08:45 - Assessment and plan (1) Generalized pain Current Visit: Yes Status: Acute Assessment and plan: Continue Fentanyl patch with Roxinal for breakthrough pain. Has only had z1 last 24 hours. Appears comfortable (2) Anxiety Current Visit: Yes Status: Acute Assessment and plan: Continue Lorazepam if needed. Has not required (3) Counseling regarding advanced care planning and goals of care Current Visit: Yes Status: Acute Assessment and plan: Patient actively dying - family did make it here yesterday to visit and were here most of day. Expect she will pass within next 24 hours (4) Lung cancer Current Visit: No Status: Chronic Qualifiers: Laterality: right Lung location: upper lobe of lung Qualified Code(s): C34.11 - Malignant neoplasm of upper lobe, right bronchus or lung (5) ADDIS (acute kidney injury) Current Visit: Yes Status: Acute (6) Leukocytosis Current Visit: No Status: Acute Qualifiers: Leukocytosis type: unspecified Qualified Code(s): D72.829 - Elevated white blood cell count, unspecified - Time Spent With Patient Total time spent is greater than 50% in coordination of care (as documented) at patient's floor/unit and/or counseling patient: 25 - 35 minutes - Subjective Interval history: Patient febrile this am 102.7. + upper airway secretions. Unresponsive. Hypotensive. - Constitutional Vitals: Abnormal lab results WBC 19.7 K/mcL (4.3-11.1) H 12/15/17 05:55 RBC 3.36 M/mcL (3.82-4.97) L 12/15/17 05:55 Hgb 9.3 g/dL (11.5-15.4) L 12/15/17 05:55 Hct 30.0 % (35.3-44.9) L 12/15/17 05:55 MCH 27.7 pg (28.0-33.3) L 12/15/17 05:55 MCHC 31.0 g/dL (31.6-35.5) L 12/15/17 05:55 RDW 16.8 % (11.5-14.5) H 12/15/17 05:55 Band Neutrophils % 24.0 % (0-4) H 12/15/17 05:55 Metamyelocytes % 2.0 % (0) H 12/15/17 05:55 Neutrophils # 16.6 K/mcL (1.6-8.9) H 12/15/17 05:55 Nucleated RBCs/100 WBC 0.2 /100 WBC (0) H 12/12/17 09:11 Toxic Granulation Present (Not Present) A 12/15/17 05:55 Hypochromasia Present (Not Present) A 12/13/17 02:59 Carbon Dioxide 21 mEq/L (23-29) L 12/15/17 05:55 BUN 63 mg/dL (8-23) H 12/15/17 05:55 Creatinine 1.37 mg/dL (0.60-1.20) H 12/15/17 05:55 Est GFR ( Amer) 44 (> 60) L 12/15/17 05:55 Est GFR (Non-Af Amer) 37 (> 60) L 12/15/17 05:55 BUN/Creatinine Ratio 46 (6-26) H 12/15/17 05:55 POC Glucose 133 (58-89) H 12/15/17 23:31 Calculated Osmolality 308 (280-300) H 12/15/17 05:55 Lactic Acid 2.3 mmol/L (0.5-2.2) H 12/11/17 23:26 Calcium 7.9 mg/dL (8.6-10.3) L 12/15/17 05:55 Iron 39 mcg/dL (50-170) L 12/13/17 13:32 Transferrin 105 mg/dL (203-362) L 12/13/17 13:32 Ferritin > 1350 ng/ml (10-120) H 12/13/17 13:32 Total Bilirubin 0.2 mg/dL (0.3-1.0) L 12/11/17 18:44 AST 57 Units/L (13-39) H 12/11/17 18:44 Serum Total Protein 4.3 g/dL (6.4-8.9) L 12/11/17 18:44 Albumin 2.0 g/dL (3.5-5.7) L 12/11/17 18:44 Globulin 2.3 g/dL (2.4-3.5) L 12/11/17 18:44 Albumin/Globulin Ratio 0.9 (1.1-2.2) L 12/11/17 18:44 Urine Clarity Cloudy (Clear) A 12/11/17 22:00 Urine Protein 30 mg/dL (Neg-Trace) H 12/11/17 22:00 Urine Blood Large (Negative) H 12/11/17 22:00 Ur Leukocyte Esterase Small (Negative) H 12/11/17 22:00 Urine Microscopic RBC 15-30 per hpf (0-3) H 12/11/17 22:00 Urine Microscopic WBC 15-30 per hpf (0-3) H 12/11/17 22:00 Ur Squamous Epith Cells Many per lpf (None-Few) H 12/11/17 22:00 Granular Casts Few per lpf (None Seen) H 12/11/17 22:00 General appearance: Present: no acute distress - Respiratory Respiratory exam: Present: rhonchi - Cardiovascular Cardiovascular exam: Present: tachycardia - GI/Abdominal GI/Abdominal exam: Present: normal bowel sounds, soft - Extremities Exam Additional comments: 3-4+ edema lower extremities. Left heel with deep tissue injury - allevyn in place - Neurological Exam Additional comments: Unresponsive - Skin Skin exam: Present: dry, warm Palliative Quality Palliative Quality: Screen for Code Status: Yes, Screen for Goals of Care: Yes, Screen for Pain: Yes, If Pain Regimen Started, Initiate Bowel Regimen: NA, Screen for Nausea/Vomitting: Yes Code Status: 12/13/17 07:38 Resuscitation Status: Active [RES] Routine Comment: Resuscitation Status: [id number] 12/16/17 11:18 DNR [Resuscitation Status: Active] [RES] Routine Comment: Resuscitation Status: DNR-Comfort Care - Labs CBC & Chem 7: 12/15/17 05:55 12/15/17 05:55 Consult Discharge Plan - Plan Instructions: Oxycodone/Acetaminophen (By mouth), Lorazepam (By mouth), Fentanyl (Absorbed through the skin) Referrals: Swati Rios DO [Primary Care Provider] - (patient will follow up with f pcp) Prescriptions: OxyCODONE CONC 15 mg PO Q2HR PRN 7 Days #30 mls PRN Reason: severe pain and dyspnea LORazepam Oral Conc [Ativan Oral Conc] 1 mg PO Q4HR PRN 7 Days #30 mls PRN Reason: anxiety and restlessness FentaNYL PATCH [Duragesic] 12 mcg TD Q72H 6 Days #2 patch.[id number]
[2017-12-19] MEDS: MORPHINE SUL Oral CONC 10 MG/0.5 ML ORAL.SYG SL PRN (15:41)
--- NOTE | 2017-12-19 17:39 | Event Note ---
Date of Encounter: 12/19/17 Time of Encounter: 16:00 Patient resting comfortably with gurgles present All medical care has been withdrawn Palliative care following and appreciate recommendations
[2017-12-19 20:44] VITALS: BP 85/52
[2017-12-20] MEDS: Atropine Sulfate 1% 40 DROP/2 ML BOTTLE SL PRN (01:58)
--- NOTE | 2017-12-20 06:26 | Death Note ---
Pronouncement Note - Date and Time of Date of : 12/20/17 Time of : 06:17 - PCOD Preliminary cause of : Cardiac arrest - Additional Data Confirmation of : no pulse, no respirations, no heart sounds, pupils fixed and dilated, other (EKG shows straight line) Family: contacted Additional persons at bedside: other (RN) Attending/PCP notified?: No Attending physician: Jj Barrett Was code activated?: No Autopsy requested?: No cellophane wrapping examiner notified?: No Organ bank notified?: No Advance directives: Yes (DNRCC)
== END 2017-12-20 07:41 | DRG 871 ==
LOC: 2ANU 18:28 → EMEROO 18:28 → 2ANU 23:32 → SUATTDRO 12-12 14:04
PROVIDERS: ADMIT Internal Medicine; ATTEND Hospitalist